=== PATIENT | male | born 1965 | race Caucasian/White ===

== ENCOUNTER 2021-10-09 11:35 | Outpatient (REF) | payer BC, SELFPAY ==
[2021-10-09 12:37] LABS: Influenza A PCR NEGATIVE (Negative); Influenza B PCR NEGATIVE (Negative); Resp Syncy Virus RNA Qual PCR NEGATIVE (Negative); SARS COV2 PCR INHOUSE POSITIVE (Negative)
== END 2021-10-09 11:36 | disposition home or self-care (01) ==
LOC: HO.LNP 11:35
PROVIDERS: Visit Provider Family Medicine
DX: Z20.822 Contact with and (suspected) exposure to COVID-19 (principal)
CPT/HCPCS: 0241U

== ENCOUNTER 2021-11-26 10:27 | Outpatient (REF) | payer BC, SELFPAY ==
[2021-11-26 13:58] LABS: MANUAL DIFF FLAG NO
[2021-11-26 14:08] LABS: Basophils Percent Auto 0.6 % (0-2); Eosinophils Absolute Auto 0.2 X10*3/uL (0.0-0.4); Eosinophils Percent Auto 3.3 % (0-4); Hematocrit 37.3 % (42.0-52.0); Hemoglobin 11.5 g/dl (14.0-18.0); Imm Gran Abs Auto 0.02 X10*3/uL (0.00-0.03); Imm Gran Pct Auto 0.4 % (0.0-0.4); Lymphocytes Absolute Auto 1.9 X10*3/uL (1.2-4.9); Mean Corpuscular HGB Conc 30.8 g/dl (31.0-36.0); Mean Corpuscular Hemoglobin 19.1 pg (27.0-33.0); Mean Platelet Volume 10.5 fL (9.4-12.4); Monocytes Absolute Auto 0.5 X10*3/uL (0.1-1.2); Monocytes Percent Auto 9.9 % (2-11); Neutrophils Absolute Auto 2.3 x10*3/uL (2.0-8.3); Neutrophils Percent Auto 46.8 % (45-73); Platelet Count 204 X10*3/uL (160-400); Red Blood Count 6.01 X10*6/uL (4.60-5.80); Red Cell Distribution Width 18.9 % (11.0-16.0); White Blood Count 4.8 X10*3/uL (4.8-10.8)
[2021-11-26 14:10] LABS: Mean Corpuscular Volume 62.1 fL (80.0-98.0)
[2021-11-26 14:43] LABS: Alanine Aminotransferase 21 U/L (0-40); Albumin Level 4.7 g/dL (3.5-5.0); Alkaline Phosphatase 52 U/L (39-117); Anion Gap 15 (12-20); Aspartate Amino Transferase 20 U/L (5-37); Bilirubin Total 0.9 mg/dL (0.0-1.0); Blood Urea Nitrogen 16 mg/dL (9-16); Calcium 9.4 mg/dL (8.4-10.2); Carbon Dioxide 25 mmol/L (22-29); Chloride 103 mmol/L (96-108); Cholesterol 221 mg/dL; Estimated Glomerular Filt Rate > 60; Glucose Fasting 113 mg/dL (60-99); HDL Cholesterol 73 mg/dL; LDL Cholesterol Calculated 133 mg/dl; Potassium 4.2 mmol/L (3.3-5.1); Sodium 139 mmol/L (135-145); Total Protein 7.1 g/dL (6.5-8.0); Triglycerides 78 mg/dL
[2021-11-26 14:50] LABS: Prostate Specific Antigen Scr 0.52 ng/mL (<0.05-4.0); TSH reflex Free T4 1.33 uIU/mL (0.32-4.0)
== END 2021-11-26 10:28 | disposition home or self-care (01) ==
LOC: HO.WFDLDS 10:27
PROVIDERS: Visit Provider Family Medicine
DX: Z00.00 Encounter for general adult medical examination without abnormal findings (principal); Z12.5 Encounter for screening for malignant neoplasm of prostate
CPT/HCPCS: 36415; 80053; 80061; 84153; 84443; 85025

== ENCOUNTER 2022-08-11 08:36 | Outpatient (REF) | payer BC, SELFPAY ==
[2022-08-11 11:08] LABS: MANUAL DIFF FLAG NO
[2022-08-11 11:18] LABS: Basophils Percent Auto 0.8 % (0-2); Eosinophils Absolute Auto 0.1 X10*3/uL (0.0-0.4); Eosinophils Percent Auto 1.5 % (0-4); Hematocrit 36.1 % (42.0-52.0); Imm Gran Abs Auto 0.03 X10*3/uL (0.00-0.03); Imm Gran Pct Auto 0.6 % (0.0-0.4); Immature Retic Fraction 22.5 % (2.3-13.4); Lymphocytes Absolute Auto 1.6 X10*3/uL (1.2-4.9); Lymphocytes Percent Auto 30.1 % (20-40); Mean Corpuscular HGB Conc 30.5 g/dl (31.0-36.0); Mean Corpuscular Hemoglobin 19.4 pg (27.0-33.0); Mean Platelet Volume 10.2 fL (9.4-12.4); Monocytes Absolute Auto 0.4 X10*3/uL (0.1-1.2); Monocytes Percent Auto 8.3 % (2-11); Neutrophils Absolute Auto 3.1 x10*3/uL (2.0-8.3); Neutrophils Percent Auto 58.7 % (45-73); Platelet Count 171 X10*3/uL (160-400); Red Blood Count 5.67 X10*6/uL (4.60-5.80); Red Cell Distribution Width 18.2 % (11.0-16.0); Retic HGB Equivalent 21.5 pg (30.0-35.0); Reticulocyte Percent 1.4 % (0.5-1.8); White Blood Count 5.3 X10*3/uL (4.8-10.8)
[2022-08-11 11:20] LABS: Mean Corpuscular Volume 63.7 fL (80.0-98.0)
[2022-08-11 12:07] LABS: Iron 98 mcg/dL (45-160); Percent Iron Saturation 29 % (15-50); Total Iron Binding Capacity 337 mcg/dL (228-428); Unsaturated Iron Binding 239 ug/dL
[2022-08-11 12:12] LABS: Ferritin 210 ng/mL (20-250)
[2022-08-11 12:21] LABS: Folate 16.8 ng/mL (> or = 4.0); Vitamin B12 270 pg/mL (200-900)
== END 2022-08-11 08:37 | disposition home or self-care (01) ==
LOC: HO.WFDLDS 08:36
PROVIDERS: Visit Provider Family Medicine
DX: D50.9 Iron deficiency anemia, unspecified (principal); E53.8 Deficiency of other specified B group vitamins
CPT/HCPCS: 36415; 82607; 82728; 82746; 83540; 85025; 85045

== ENCOUNTER 2022-09-04 14:24 | Outpatient (AMB) | payer BC, SELFPAY ==
--- NOTE | 2022-09-04 14:37 | MHC.PC.OV ---
Vital Signs 09/04/22 14:39 Height 5 ft 5 in Weight 230 lb BMI 38.3 BP 120/74 Blood Pressure Location Lt brachial Position Sitting Pulse 91 Pulse Source Pulse Oximeter Pulse Oximetry (%) 98 Oxygen Delivery Method Room Air Intake Visit Reasons: f/u elevated fasting blood sugars Intake Note: Patient is here to follow up on elevated fasting blood sugars. Allergies Seasonal Allergies Allergy (Mild, Verified 09/04/22 14:42) congestion Tobacco use date assessed: 09/04/22 Dental Screening Dental Screen Date: 09/04/22 Did you have a dental visit in the last 12 months?: Yes Did you have a dental problem in the last 6 months where you did not have access to dental care?: No Was dental information given to patient?: No HPI f/u elevated fasting blood sugars HPI Details 57 y/o male presents to f/u elevated fasting blood sugars. Last A1c 06/11/22 5.6%. A1c today 09/04/22 5.5%. Labs were drawn 08/11/22. Ongoing microcytic anemia. Pt reports he has had thalassemia. He denies any shortness of breath or fast heart rate. 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 Current occupational exposures/hazards: No Cognitive needs: No Hearing needs: No Vision needs: No Questionnaire SHANNON-7 AMB Questionnaire SHANNON-7 Date SHANNON - 7 assessed: 11/15/21 Source: Developed by Drs. Bharath Sky, Ela Mann, Marco Mann and colleagues, with an educational zaid from [employer]. Review of Systems Const Denies chills, Denies fatigue, Denies fever(s), Denies headache(s) and Denies weakness ENT Denies dizziness and Denies headache(s) Card Denies chest pain, Denies lightheadedness, Denies dyspnea and Denies other (Palpitations) Resp Denies cough, Denies dyspnea, Denies wheezing and Denies other ( shortness of breath) Musc Denies numbness and Denies tingling Neuro Denies dizziness, Denies headache(s), Denies numbness, Denies tingling, Denies paresthesias and Denies weakness Psych Denies anxiety and Denies depression Endo Denies fatigue Aller/Immun Denies wheezing Physical exam (Primary Care) Vital Signs: Last Vital Signs Pulse 91 09/04/22 14:39 BP 120/74 09/04/22 14:39 Pulse Ox 98 09/04/22 14:39 Oxygen Delivery Method Room Air 09/04/22 14:39 BMI result Body Mass Index 38.3 Tobacco/Smoking Status: Tobacco use Status Tobacco use date assessed 09/04/22 09/04/22 14:50 Tobacco use type Cigar 09/04/22 14:47 e-Cigarette/Vaping Use Never Used 09/04/22 14:47 Const General: no acute distress and well developed Nutritional Appearance: well nourished and obese Orientation/consciousness: patient oriented x3 HENMT Head: Yes normocephalic and Yes atraumatic Eyes General: appearance normal, both eyes and all related structures Pupils: Equal, round and reactive pupils present EOM: EOMs intact bilaterally Resp Effort & Inspection: normal respiratory effort Auscultation: clear to auscultation bilaterally Cardio Rate: regular rate Rhythm: regular rhythm Heart sounds: S1 normal heart sound present, S2 normal heart sound present, no gallops, no murmurs and no rubs Neuro General: patient oriented x3 and gait normal Cranial nerves: Yes Equal, round and reactive pupils present Psych Affect: normal affect Results AMB Hemoglobin A1c AMB Hemoglobin A1c 5.5 % Last Edit by Indira Christiansen CMA on 09/04/22 15:01 Results Reviewed Results Reviewed: Laboratory Last Values Hgb A1c (Clinic) 5.5 % (4.0-6.0) 09/04/22 14:57 Assessment and Plan Assessment & Plan (1) Elevated fasting glucose: Code(s): R73.01 - Impaired fasting glucose Plan: A1c improved from 5.6% to 5.5% Though still in top normal range Encouraged lifestyle changes Will follow-up (2) Microcytic anemia: Code(s): D50.9 - Iron deficiency anemia, unspecified Plan: Persistent microcytic anemia with normal iron Patient recalls that he has a diagnosis thalassemia (3) History of thalassemia: Code(s): Z86.2 - Personal history of diseases of the blood and blood-forming organs and certain disorders involving the immune mechanism Plan: Will follow Orders: Orders AMB Hemoglobin A1c Today Z13.9 - Encounter for screening, unspecified Coding Level of Care Code Est Pt Level 3 (44400) Diagnoses Elevated fasting glucose R73.01 Microcytic anemia D50.9 History of thalassemia Z86.2
[2022-09-04 14:39] VITALS: BP 120/74; PULSE 91; O2SAT 98; BMI 38.3
== END 2022-09-04 15:29 | disposition home or self-care (01) ==
PROVIDERS: Visit Provider Family Medicine
DX: R73.01 Impaired fasting glucose (principal); D50.9 Iron deficiency anemia, unspecified; Z86.2 Personal history of diseases of the blood and blood-forming organs and certain disorders involving the immune mechanism; Z13.9 Encounter for screening, unspecified
CPT/HCPCS: 83036; 99213

== ENCOUNTER 2022-12-31 08:26 | Outpatient (AMB) | payer BC, SELFPAY ==
[2022-12-31 08:39] VITALS: BP 122/78; PULSE 82; O2SAT 96; BMI 39.3
--- NOTE | 2022-12-31 08:39 | A.OFFPC_ITS ---
Vital Signs 12/31/22 08:39 Height 5 ft 5 in Weight 236 lb BMI 39.3 BP 122/78 Blood Pressure Location Lt brachial Position Sitting Pulse 82 Pulse Source Pulse Oximeter Pulse Oximetry (%) 96 Oxygen Delivery Method Room Air Intake Visit Reasons: f/u hypertension and chronic conditions Intake Note: Patient is here with follow up on hypertension and chronic condtions. Allergies Seasonal Allergies Allergy (Mild, Verified 12/31/22 08:40) congestion Tobacco use date assessed: 12/31/22 HPI f/u hypertension and chronic conditions HPI Details 57 y/o male presents to f/u hypertension and chronic conditions. Blood pressure today is 122/78. He is on losartan 50mg daily. [facility] Surgical History H/O right inguinal hernia repair Social History Housing: House Tobacco use type: Cigar e-Cigarette/Vaping Use: Never Used Second Hand Smoke Exposure: No Advance Directives Date on File: 09/04/22 Current occupational status: employed Current occupation: [employer]. Current occupational exposures/hazards: No Cognitive needs: No Hearing needs: No Vision needs: No Questionnaire PHQ-9 Over the last 2 weeks, how often have you been bothered by any of the following problems? 1. Little interest or pleasure in doing things: not at all 2. Feeling down, depressed, or hopeless: not at all 3. Trouble falling or staying asleep, or sleeping too much: not at all 4. Feeling tired or having little energy: not at all 5. Poor appetite or overeating: not at all 6. Feeling bad about yourself - or that you are a failure or have let yourself or your family down: not at all 7. Trouble concentrating on things, such as reading the newspaper or watching television: not at all 8. Moving or speaking so slowly that other people could have noticed. Or the opposite - being so fidgety or restless that you have been moving around a lot more than usual: not at all 9. Thoughts that you would be better off or of hurting yourself in some way: not at all Total score: 0 Source: Developed by Drs. Bharath Sky, ElaMarco Alfaro and colleagues, with an educational zaid from [employer] SHANNON-7 AMB Questionnaire SHANNON-7 Date SHANNON - 7 assessed: 12/31/22 Feeling nervous, anxious, or on edge: 1 = Several days Not being able to stop or control worryin = Not at all Worrying too much about different things: 1 = Several days Trouble relaxin = Not at all Being so restless that it is hard to sit still: 0 = Not at all Becoming easily annoyed or irritable: 0 = Not at all Feeling afraid as if something awful might happen: 0 = Not at all Total SHANNON-7 score (0-4 normal; 5-9 mild; 10-14 moderate; 15-21 severe): 2 Source: Developed by Drs. Bharath Sky, Marco Meléndez and colleagues, with an educational zaid from [employer] Review of Systems Const Denies chills, Denies fatigue, Denies fever(s), Denies headache(s) and Denies weakness ENT Denies dizziness and Denies headache(s) Card Denies chest pain, Denies lightheadedness, Denies dyspnea and Denies other (Palpitations) Resp Denies cough, Denies dyspnea, Denies wheezing and Denies other ( shortness of breath) Musc Denies numbness and Denies tingling Neuro Denies dizziness, Denies headache(s), Denies numbness, Denies tingling, Denies paresthesias and Denies weakness Psych Denies anxiety and Denies depression Endo Denies fatigue Aller/Immun Denies wheezing Physical exam (Primary Care) Vital Signs: Last Vital Signs Pulse 82 12/31/22 08:39 BP 122/78 12/31/22 08:39 Pulse Ox 96 12/31/22 08:39 Oxygen Delivery Method Room Air 12/31/22 08:39 BMI result Body Mass Index 39.3 Tobacco/Smoking Status: Tobacco use Status Tobacco use date assessed 12/31/22 12/31/22 08:43 Tobacco use type Cigar 12/31/22 08:43 e-Cigarette/Vaping Use Never Used 12/31/22 08:43 PHQ-9: PHQ-9 Score PHQ-9: Total score 0 12/31/22 09:00 Const General: no acute distress and well developed Nutritional Appearance: well nourished Orientation/consciousness: patient oriented x3 HENMT Head: Yes normocephalic and Yes atraumatic Eyes General: appearance normal, both eyes and all related structures Pupils: Equal, round and reactive pupils present EOM: EOMs intact bilaterally Resp Effort & Inspection: normal respiratory effort Auscultation: clear to auscultation bilaterally Cardio Rate: regular rate Rhythm: regular rhythm Heart sounds: S1 normal heart sound present, S2 normal heart sound present, no gallops, no murmurs and no rubs Neuro General: patient oriented x3 and gait normal Cranial nerves: Yes Equal, round and reactive pupils present Psych Affect: normal affect Assessment and Plan Assessment & Plan (1) Hypertension: Code(s): I10 - Essential (primary) hypertension Plan: Blood?pressure?is?controlled.??Goal?is?less?than?140/90 Continue?current?medication Orders: Orders Complete Blood Count Auto Diff Today Z00.00 - Encounter for general adult medical examination without abnormal findings, Z86.2 - Personal history of diseases of the blood and blood-forming organs and certain disorders involving the immune mechanism Basic Metabolic Panel Fasting Today R73.01 - Impaired fasting glucose Hemoglobin A1c Today R73.01 - Impaired fasting glucose IRON PROFILE Today D50.9 - Iron deficiency anemia, unspecified Coding Level of Care Code Est Pt Level 3 (36681) Diagnoses Hypertension I10
== END 2022-12-31 09:08 | disposition home or self-care (01) ==
PROVIDERS: PCP Family Medicine; Visit Provider Family Medicine
DX: I10 Essential (primary) hypertension (principal)
CPT/HCPCS: 99213

== ENCOUNTER 2023-03-25 08:33 | Outpatient (REF) | payer BC, SELFPAY ==
[2023-03-25 11:33] LABS: MANUAL DIFF FLAG NO
[2023-03-25 11:45] LABS: Basophils Absolute Auto 0.1 X10*3/uL (0.0-0.2); Basophils Percent Auto 0.9 % (0-2); Eosinophils Absolute Auto 0.2 X10*3/uL (0.0-0.4); Eosinophils Percent Auto 4.3 % (0-4); Hematocrit 37.4 % (42.0-52.0); Hemoglobin 11.4 g/dl (14.0-18.0); Imm Gran Abs Auto 0.03 X10*3/uL (0.00-0.03); Imm Gran Pct Auto 0.6 % (0.0-0.4); Lymphocytes Absolute Auto 1.8 X10*3/uL (1.2-4.9); Lymphocytes Percent Auto 33.1 % (20-40); Mean Corpuscular HGB Conc 30.5 g/dl (31.0-36.0); Mean Corpuscular Hemoglobin 19.2 pg (27.0-33.0); Mean Platelet Volume 10.7 fL (9.4-12.4); Monocytes Absolute Auto 0.5 X10*3/uL (0.1-1.2); Monocytes Percent Auto 9.2 % (2-11); Neutrophils Absolute Auto 2.8 x10*3/uL (2.0-8.3); Neutrophils Percent Auto 51.9 % (45-73); Platelet Count 215 X10*3/uL (160-400); Red Blood Count 5.95 X10*6/uL (4.60-5.80); Red Cell Distribution Width 17.9 % (11.0-16.0); White Blood Count 5.3 X10*3/uL (4.8-10.8)
[2023-03-25 11:47] LABS: Mean Corpuscular Volume 62.9 fL (80.0-98.0)
[2023-03-25 12:03] LABS: Estimated Average Glucose 117 mg/dL; Hemoglobin A1c % 5.7 % (<6.0)
[2023-03-25 12:21] LABS: Anion Gap 12 (12-20); Blood Urea Nitrogen 17 mg/dL (9-16); Calcium 9.5 mg/dL (8.4-10.2); Carbon Dioxide 23 mmol/L (22-29); Chloride 108 mmol/L (96-108); Estimated Glomerular Filt Rate > 60; Glucose Fasting 106 mg/dL (60-99); Iron 109 mcg/dL (45-160); Percent Iron Saturation 33 % (15-50); Potassium 4.5 mmol/L (3.3-5.1); Sodium 138 mmol/L (135-145); Total Iron Binding Capacity 333 mcg/dL (228-428); Unsaturated Iron Binding 224 ug/dL
== END 2023-03-25 08:34 | disposition home or self-care (01) ==
LOC: HO.WFDLDS 08:33
PROVIDERS: Visit Provider Family Medicine
DX: Z00.00 Encounter for general adult medical examination without abnormal findings (principal); R73.01 Impaired fasting glucose; D50.9 Iron deficiency anemia, unspecified; Z86.2 Personal history of diseases of the blood and blood-forming organs and certain disorders involving the immune mechanism
CPT/HCPCS: 36415; 80048; 83036; 83540; 85025

== ENCOUNTER 2023-04-01 08:25 | Outpatient (AMB) | payer BC, SELFPAY ==
--- NOTE | 2023-04-01 08:35 | A.OFFPC_ITS ---
Vital Signs 04/01/23 08:36 Height 5 ft 5 in Weight 229 lb 9 oz BMI 38.2 BP 126/74 Blood Pressure Location Lt brachial Position Sitting Pulse 79 Pulse Source Pulse Oximeter Pulse Oximetry (%) 97 Oxygen Delivery Method Room Air Intake Visit Reasons: f/u hypertension Intake Note: Patient is here to follow up on hypertension. Allergies Seasonal Allergies Allergy (Mild, Verified 04/01/23 08:38) congestion Tobacco use date assessed: 04/01/23 Dental Screening Dental Screen Date: 04/01/23 Did you have a dental visit in the last 12 months?: Yes Did you have a dental problem in the last 6 months where you did not have access to dental care?: No Was dental information given to patient?: Patient has dentist HPI f/u hypertension HPI Details 57 y/o male presents to f/u hypertension , elevated fasting glucose and mild anemia. Blood pressure today 126/74. He is on losartan 50mg daily. Labs were drawn 03/25/23. Reviewed labs with pt. Improving mild anemia. Hx of thalessemia. A1c 5.7%. 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 Current occupational exposures/hazards: No Cognitive needs: No Hearing needs: No Vision needs: No Questionnaire PHQ-9 Over the last 2 weeks, how often have you been bothered by any of the following problems? 1. Little interest or pleasure in doing things: not at all 2. Feeling down, depressed, or hopeless: not at all 3. Trouble falling or staying asleep, or sleeping too much: not at all 4. Feeling tired or having little energy: not at all 5. Poor appetite or overeating: not at all 6. Feeling bad about yourself - or that you are a failure or have let yourself or your family down: not at all 7. Trouble concentrating on things, such as reading the newspaper or watching television: not at all 8. Moving or speaking so slowly that other people could have noticed. Or the opposite - being so fidgety or restless that you have been moving around a lot more than usual: not at all 9. Thoughts that you would be better off or of hurting yourself in some way: not at all Total score: 0 Depression Screening Interpretation: Negative Depression Screening Done: Yes Source: Developed by Drs. Bharath Sky, Ela Mann, Marco Mann and colleagues, with an educational zaid from [employer]. Thrive Questionnaire Date Thrive assessed: 04/01/23 I am a: Patient What is your living situation today?: I have a steady place to live Within the past 12 months, did the food you bought not last and you didn't have the money to get more?: Never true Within the past 12 months, did you worry whether your food would run out before you got money to buy more?: Never true Do you have trouble paying for medicines?: No Do you have trouble getting transportation to medical appointments?: No Do you have trouble paying your heating and electricity bill?: No Do you have trouble taking care of your child, family member or friend?: No Do you have trouble with day-to-day activities such as bathing, preparing meals, shopping, managing finances, etc.?: No Are you currently unemployed and looking for a job?: No Are you interested in more education?: No THRIVE Score: 0 AUDIT C Alcohol Use Questionnaire (AUDIT-C) 1. How often do you have a drink containing alcohol?: Monthly or less 2. How many drinks containing alcohol do you have on a typical day when you are drinking?: 1 or 2 3. How often do you have six or more drinks on one occasion?: Never Total Score: 1 SHANNON-7 AMB Questionnaire SHANNON-7 Date SHANNON - 7 assessed: 04/01/23 Feeling nervous, anxious, or on edge: 0 = Not at all Not being able to stop or control worryin = Not at all Worrying too much about different things: 1 = Several days Trouble relaxin = Not at all Being so restless that it is hard to sit still: 0 = Not at all Becoming easily annoyed or irritable: 0 = Not at all Feeling afraid as if something awful might happen: 0 = Not at all Total SHANNON-7 score (0-4 normal; 5-9 mild; 10-14 moderate; 15-21 severe): 1 Source: Developed by Drs. Bharath Sky, Ela Mann, Marco Mann and colleagues, with an educational zaid from [employer]. Physical exam (Primary Care) Vital Signs: Last Vital Signs Pulse 79 04/01/23 08:36 BP 126/74 04/01/23 08:36 Pulse Ox 97 04/01/23 08:36 Oxygen Delivery Method Room Air 04/01/23 08:36 BMI result Body Mass Index 3.8 Tobacco/Smoking Status: Tobacco use Status Tobacco use date assessed 04/01/23 04/01/23 08:41 Tobacco use type Cigar 04/01/23 08:41 e-Cigarette/Vaping Use Never Used 04/01/23 08:41 PHQ-9: PHQ-9 Score PHQ-9: Total score 0 04/01/23 09:06 Depression Screening Interpretation: Negative Thrive Assessment: Date of Thrive Assessment Date Thrive assessed 04/01/23 04/01/23 08:49 Assessment and Plan Assessment & Plan (1) Hypertension: Code(s): I10 - Essential (primary) hypertension Plan: Blood?pressure?is?well?controlled.??Goal?is?less?than?140/90 Continue?current?medication (2) History of thalassemia: Code(s): Z86.2 - Personal history of diseases of the blood and blood-forming organs and certain disorders involving the immune mechanism Plan: History?of?thalassemia?and?mild?microcytic?anemia. This?appears?stable?and?is?slightly?improved?from?prior?check. (3) Mild anemia: Code(s): D64.9 - Anemia, unspecified Plan: As?above,?mild?microcytic?anemia?due?to?thalassemia.??This?is?stable?and?slightl y?improved. (4) Pre-diabetes: Code(s): R73.03 - Prediabetes Plan: A1c?has?climbed?to?5.7%,?pre?diabetes?range. Encouraged?diet?low?in?sugars?and?starches. Will?continue?to?monitor. (5) Olecranon bursitis: Code(s): M70.20 - Olecranon bursitis, unspecified elbow Plan: Resolving Advised?he?use?cold?packs?and?avoid?leaning?on?or?pressure?on?elbow. Call?or?return?to?office?if?worsens?or?not?resolving. Orders: Orders Complete Blood Count Auto Diff Today Z00.00 - Encounter for general adult medical examination without abnormal findings Lipid Panel Today Z00.00 - Encounter for general adult medical examination without abnormal findings Microalbumin, Random (w Creat) Today I10 - Essential (primary) hypertension Prostate Specific Antigen Scr Today Z12.5 - Encounter for screening for malignant neoplasm of prostate TSH reflex Free T4 Today Z00.00 - Encounter for general adult medical examination without abnormal findings UA and rflx microscopic Today Z00.00 - Encounter for general adult medical examination without abnormal findings IRON PROFILE Today D50.9 - Iron deficiency anemia, unspecified, Z86.2 - Personal history of diseases of the blood and blood-forming organs and certain disorders involving the immune mechanism Comprehensive [place]. Panel Fast Today Z00.00 - Encounter for general adult medical examination without abnormal findings Coding Level of Care Code Est Pt Level 4 (72726) Diagnoses Hypertension I10 History of thalassemia Z86.2 Mild anemia D64.9 Pre-diabetes R73.03 Olecranon bursitis M70.20
[2023-04-01 08:36] VITALS: BP 126/74; PULSE 79; O2SAT 97; BMI 38.2
== END 2023-04-01 09:22 | disposition home or self-care (01) ==
PROVIDERS: PCP Family Medicine; Visit Provider Family Medicine
DX: I10 Essential (primary) hypertension (principal); Z86.2 Personal history of diseases of the blood and blood-forming organs and certain disorders involving the immune mechanism; D64.9 Anemia, unspecified; R73.03 Prediabetes; M70.20 Olecranon bursitis, unspecified elbow
CPT/HCPCS: 99214

== ENCOUNTER 2023-07-13 08:10 | Outpatient (AMB) | payer BC, SELFPAY ==
--- NOTE | 2023-07-13 08:32 | MHC.OFFWIV ---
Intake Vital Signs 07/13/23 08:33 Height 5 ft 5 in Weight 229 lb 6 oz BMI 38.2 BP 124/82 Blood Pressure Location Lt radial Position Sitting Respiration 16 Pulse 80 Pulse Source Palpation Temp 98.1 F Temp Source Oral Pulse Oximetry (%) 97 Oxygen Delivery Method Room Air Intake Visit Reasons: swollen left hand Intake Note: Swollen hand. Discolored, white, last night. Gradually returned to normal. Patient Tobacco Use Status: Current everyday Tobacco user Wrapper And Preserver Required: No Allergies Seasonal Allergies Allergy (Mild, Verified 07/13/23 08:53) congestion Medication List - Last Reconciled 07/13/23 by Eleanor Alvarado, [facility]- allopurinol 100 mg PO DAILY PRN cetirizine (Zyrtec) 10 mg PO DAILY PRN indomethacin 50 mg PO .prn PRN losartan 50 mg PO DAILY 90 days multivitamin 1 tab PO DAILY Do you need a note to return to daycare/school/sports/work: No HPI HPI Comments History of Present Illness Details Here today w WITH COMPLAINTS OF ONGOING RIGHT HAND PAIN THAT HAS BEEN PRESENT SINCE 06/08/2023. REPORTS THE INJURY OCCURRED AFTER HITTING THE RIGHT PALMAR SURFACE ON A WRENCH. right hand dominant top Of hand started to swell 1-2 hours later had stinging in hand did not turn black and blue, skin turned red on top, had a lot of swelling was not able to use by 06/21/23 hand cont to be the same. Icing and elevating & using Motrin since date of injury Went to ED on 06/21/23 --> note reviewed along w/ imaging. Did not have a splint that would fit right hand so applied an monica wrap Bought OTC brace and using a flexible brace while at work. Here today as last night at dinner hand turned white from the finger tips to about 1 inch past the wrist, skin was warm to touch. this lasted hours. The skin then turned red. feels decreased strength, edema is worse at end of day . 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 Current occupational exposures/hazards: No Cognitive needs: No Hearing needs: No Vision needs: No Review of Systems Const All systems reviewed & are unremarkable except as noted in HPI and below Physical Exam Vital Signs: Last Vital Signs Temp 98.1 F 07/13/23 08:33 Pulse 80 07/13/23 08:33 Resp 16 07/13/23 08:33 BP 124/82 07/13/23 08:33 Pulse Ox 97 07/13/23 08:33 Oxygen Delivery Method Room Air 07/13/23 08:33 BMI result Body Mass Index 38.2 Extrem Other: RIGHT HAND CAP REFILL WNL, SKIN WARM, PINK, NO CYANOSIS, BRUISING OR EDEMA. LIMITED PASSIVE ROM ALL DIRECTIONS, HANG GRASP MILDLY WEAK. NO OBVIOUS DEFORMITY. Hand/finger images: 1. PAIN WITH PALPATION AND ROTATION 2. PAIN WITH PALPATION AND FLEXION AND EXTENSION Assessment & Plan Assessment & Plan (1) Injury of right hand: Code(s): S69.91XA - Unspecified injury of right wrist, hand and finger(s), initial encounter Qualifiers: Encounter type: subsequent encounter Qualified Code(s): S69.91XD - Unspecified injury of right wrist, hand and finger(s), subsequent encounter Plan: . Plan PATIENT AND HIS WISH TO BE SEEN TODAY. I HAVE ADVISED THEM TO SEEK CARE AT [facility]. IN REGARDS TO THE INCIDENTAL FINDING ON THE X-RAY OF HIS RIGHT HAND WHICH SHOWED SMALL VESSEL ARTERIOSCLEROSIS I ENCOURAGED HIM TO FOLLOW UP WITH HIS PRIMARY CARE PROVIDER. HE REPORTS HE HAS A APPOINTMENT WITH HIM NEXT WEEK. IN REGARDS TO THE DISCOLORATION OF HIS HAND THIS CERTAINLY COULD BE SOMETHING LIKE RAYNAUD'S ESPECIALLY GIVEN THE TOBACCO USE HISTORY. HOWEVER GIVEN THE COMPLAINTS OF WEAKNESS WELL PAIN ON PALPATION I THINK IT IS MORE IMPORTANT FOR HIM TO FOLLOW UP WITH ORTHOPEDICS AT THIS TIME. TOTAL TIME SPENT CARING FOR THE PATIENT TODAY WAS 30 MINUTES. THIS INCLUDES TIME SPENT BEFORE THE VISIT REVIEWING THE CHART, TIME SPENT DURING THE VISIT, AND TIME SPENT AFTER THE VISIT ON DOCUMENTATION THIS NOTE IS CONSTRUCTED USING VOICE RECOGNITION SOFTWARE. WHILE EVERY EFFORT HAS BEEN MADE TO ENSURE ACCURACY IN VICE PRESIDENT COMPLIANCE, STILL ERRORS MAY HAVE BEEN INCLUDED SOMETIMES, THESE ERRORS MAY AFFECT THE CONTENT OR MEANING OF THE GIVEN SENTENCE . Orders: Referrals Hand Surgery Referral S69.91XA - Unspecified injury of right wrist, hand and finger(s), initial encounter Coding Level of Care Code Est Pt Level 4 (57044) Diagnoses Injury of right hand, subsequent encounter S69.91XD Encounter type: subsequent encounter
[2023-07-13 08:33] VITALS: BP 124/82; PULSE 80; RESP 16; TEMP 36.7; O2SAT 97; BMI 38.2
== END 2023-07-13 09:05 | disposition home or self-care (01) ==
PROVIDERS: PCP Family Medicine; Visit Provider Nurse Practitioner Family
DX: S69.91XD Unspecified injury of right wrist, hand and finger(s), subsequent encounter (principal)
CPT/HCPCS: 99214

== ENCOUNTER 2023-07-23 08:23 | Outpatient (REF) | payer BC, SELFPAY ==
[2023-07-23 11:22] LABS: MANUAL DIFF FLAG NO
[2023-07-23 11:32] LABS: Basophils Percent Auto 0.6 % (0-2); Eosinophils Absolute Auto 0.1 X10*3/uL (0.0-0.4); Eosinophils Percent Auto 2.4 % (0-4); Hematocrit 35.7 % (42.0-52.0); Hemoglobin 10.8 g/dl (14.0-18.0); Lymphocytes Absolute Auto 1.5 X10*3/uL (1.2-4.9); Lymphocytes Percent Auto 32.3 % (20-40); Mean Corpuscular HGB Conc 30.3 g/dl (31.0-36.0); Mean Corpuscular Hemoglobin 19.1 pg (27.0-33.0); Mean Corpuscular Volume 63.1 fL (80.0-98.0); Mean Platelet Volume 10.9 fL (9.4-12.4); Monocytes Absolute Auto 0.5 X10*3/uL (0.1-1.2); Monocytes Percent Auto 11.2 % (2-11); Neutrophils Absolute Auto 2.5 x10*3/uL (2.0-8.3); Neutrophils Percent Auto 53.5 % (45-73); Platelet Count 214 X10*3/uL (160-400); Red Blood Count 5.66 X10*6/uL (4.60-5.80); Red Cell Distribution Width 17.9 % (11.0-16.0); White Blood Count 4.7 X10*3/uL (4.8-10.8)
[2023-07-23 11:43] LABS: Appearance Urine Clear; Color Urine Yellow; Glucose Urine UA Negative (Negative); Leukocyte Esterase Urine Negative (Negative); Nitrite Urine Negative (Negative); Specific Gravity - Urine 1.015 (1.005-1.025); Urine Blood Negative (Negative); Urine Ketones Negative (Negative); Urine Protein Negative (Neg-Trace)
[2023-07-23 12:18] LABS: Alanine Aminotransferase 17 U/L (0-40); Albumin Level 4.3 g/dL (3.5-5.0); Alkaline Phosphatase 61 U/L (39-117); Anion Gap 15 (12-20); Aspartate Amino Transferase 15 U/L (5-37); Bilirubin Total 0.4 mg/dL (0.0-1.0); Blood Urea Nitrogen 16 mg/dL (9-16); Calcium 9.8 mg/dL (8.4-10.2); Carbon Dioxide 22 mmol/L (22-29); Chloride 107 mmol/L (96-108); Cholesterol 180 mg/dL (<200); Estimated Glomerular Filt Rate > 60; Glucose Fasting 113 mg/dL (60-99); HDL Cholesterol 65 mg/dL (>40); Iron 33 mcg/dL (45-160); LDL Cholesterol Calculated 102 mg/dL (<100); Percent Iron Saturation 12 % (15-50); Potassium 4.3 mmol/L (3.3-5.1); Sodium 140 mmol/L (135-145); Total Iron Binding Capacity 274 mcg/dL (228-428); Total Protein 7.3 g/dL (6.5-8.0); Triglycerides 65 mg/dL (<150); Unsaturated Iron Binding 241 ug/dL
[2023-07-23 12:29] LABS: Prostate Specific Antigen Scr 0.55 ng/mL (<0.05-4.0)
[2023-07-23 12:37] LABS: TSH reflex Free T4 1.47 uIU/mL (0.32-4.0)
[2023-07-23 12:47] LABS: Creatinine Urine 114.23 mg/dL; Microalbumin Urine < 5.0 mg/L
== END 2023-07-23 08:24 | disposition home or self-care (01) ==
LOC: HO.WFDLDS 08:23
PROVIDERS: Visit Provider Family Medicine
DX: Z00.00 Encounter for general adult medical examination without abnormal findings (principal); I10 Essential (primary) hypertension; Z12.5 Encounter for screening for malignant neoplasm of prostate; D50.9 Iron deficiency anemia, unspecified; Z86.2 Personal history of diseases of the blood and blood-forming organs and certain disorders involving the immune mechanism
CPT/HCPCS: 36415; 80053; 80061; 81003; 82043; 82570; 83540; 84153; 84443; 85025

== ENCOUNTER 2023-07-30 08:28 | Outpatient (AMB) | payer BC, SELFPAY ==
[2023-07-30 08:37] VITALS: BP 126/74; PULSE 71; O2SAT 98; BMI 37.6
--- NOTE | 2023-07-30 08:37 | A.OFFPC_ITS ---
Vital Signs 07/30/23 08:37 Height 5 ft 5 in Weight 226 lb 4 oz BMI 37.6 BP 126/74 Blood Pressure Location Lt brachial Position Sitting Pulse 71 Pulse Source Pulse Oximeter Pulse Oximetry (%) 98 Oxygen Delivery Method Room Air Intake Visit Reasons: CPE Intake Note: Patient is here for his physical today. Patient is concerned about gout. Patient would like refill of allopurinol, indomethacin, and losartan. Allergies Seasonal Allergies Allergy (Mild, Verified 07/30/23 08:50) congestion Medication List - Last Reconciled 07/30/23 by Tra Gonzales MD allopurinol 100 mg PO DAILY PRN cetirizine (Zyrtec) 10 mg PO DAILY PRN indomethacin 50 mg PO .prn PRN losartan 50 mg PO DAILY 90 days methylprednisolone 4 mg PO DAILY multivitamin 1 tab PO DAILY Tobacco use date assessed: 07/30/23 Dental Screening Dental Screen Date: 07/30/23 Did you have a dental visit in the last 12 months?: Yes Did you have a dental problem in the last 6 months where you did not have access to dental care?: No Was dental information given to patient?: Patient has dentist HPI CPE HPI Details 57 y/o male presents for a CPE with f/u labs and health maintenance. Labs were drawn 07/23/23. Reviewed labs with pt. Ongoing mild anemia. Fasting glucose of 115 and last A1c in February 5.7%. A1c today 07/30/23 6.2%. Triglycerides 65. TC 180. LDL 102. HDL 65. Pt concerned about gout and pt states he had not been taking allopurinol. HPI Comments History of Present Illness Details Documentation assistance for rTa Gonzales MD, was provided by Rafiq Hale, Purchasing Intern on 07/30/2023 at 9:18 AM EST. [place], Dr. Gonzales, have read, observed, and verified documentation. 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 Current occupational exposures/hazards: No Cognitive needs: No Hearing needs: No Vision needs: No Questionnaire Thrive Questionnaire Date Thrive assessed: 04/01/23 SHANNON-7 AMB Questionnaire SHANNON-7 Date SHANNON - 7 assessed: 04/01/23 Source: Developed by Drs. Bharath Sky, Ela Mann, Marco Mann and colleagues, with an educational zaid from [employer]. Review of Systems Const Denies chills, Denies fatigue, Denies fever(s), Denies headache(s) and Denies weakness Eyes Denies change in vision ENT Denies dizziness, Denies headache(s), Denies hearing loss, Denies nasal congestion, Denies sinus pain, Denies sinus pressure and Denies sore throat Card Denies chest pain, Denies lightheadedness, Denies dyspnea and Denies other (palpitations) Resp Denies cough, Denies dyspnea and Denies wheezing GI Denies abdominal pain, Denies melena, Denies hematochezia, Denies change in bowel habits, Denies dyspepsia and Denies nausea Denies hematuria and Denies dysuria Musc Denies abnormal gait, Denies myalgias, Denies arthralgias, Denies numbness and Denies tingling Skin/Breast Denies rash, Denies unusual bruising and Denies wounds Neuro Denies abnormal gait, Denies dizziness, Denies headache(s), Denies memory loss, Denies numbness, Denies Sensory deficit (Neuro), Denies tingling and Denies weakness Psych Denies anxiety, Denies depression and Denies memory loss Endo Denies cold intolerance, Denies fatigue, Denies heat intolerance, Denies polydipsia and Denies polyuria Epifanio/Lymph Denies easy bleeding and Denies easy bruising Aller/Immun Denies wheezing Physical exam (Primary Care) Vital Signs: Last Vital Signs Pulse 71 07/30/23 08:37 BP 126/74 07/30/23 08:37 Pulse Ox 98 07/30/23 08:37 Oxygen Delivery Method Room Air 07/30/23 08:37 BMI result Body Mass Index 37.6 Tobacco/Smoking Status: Tobacco use Status Tobacco use date assessed 07/30/23 07/30/23 08:45 Patient Tobacco Use Status Current everyday Tobacco 07/30/23 08:37 Tobacco use type Cigar 07/30/23 08:37 e-Cigarette/Vaping Use Never Used 07/30/23 08:37 Thrive Assessment: Date of Thrive Assessment Date Thrive assessed 04/01/23 07/30/23 08:37 Const General: no acute distress, well developed, alert and awake Nutritional Appearance: well nourished Orientation/consciousness: patient oriented x3 HENMT Head: Yes normocephalic and Yes atraumatic Ears: hearing grossly normal bilaterally and TM's normal bilaterally General nose exam: Normal external nose present and Normal nares present Mouth: Normal oral and palatal mucosa present and moist mucous membranes Teeth and gingiva: dentition normal Throat: Yes posterior oropharynx normal Eyes General: appearance normal, both eyes and all related structures Pupils: Equal, round and reactive pupils present and Pupil accommodation reflex normal EOM: EOMs intact bilaterally Neck Neck: Yes normal visual inspection, Yes no lymphadenopathy and Yes trachea midline Thyroid: Thyroid normal Carotids: no bruits Lymphatic: no lymphadenopathy noted Chest Chest palpation & inspection: normal inspection of the chest Resp Effort & Inspection: normal respiratory effort Auscultation: clear to auscultation bilaterally Cardio Rate: regular rate Rhythm: regular rhythm Heart sounds: S1 normal heart sound present, S2 normal heart sound present, no gallops, no murmurs and no rubs Bruits: no abdominal aortic bruits and no carotid bruits GI Palpation (GI): No Abdominal aortic bruit present, Soft to palpation, nontender, No hepatosplenomegaly present and No Rebound tenderness present Auscultation: normal bowel sounds General: Yes no CVA tenderness Back/Spine/Pelvis Back: no CVA tenderness Cervical Spine: cervical ROM normal and No Cervical spine tenderness Thoracic/Lumbar Spine: thoraco-lumbar ROM normal, No pain with thoraco-lumbar ROM, No thoracic spinal tenderness and No lumbar spinal tenderness Skin Lesions: no lesions Rashes: no rashes Trauma: no lacerations or abrasions Wounds: no wounds Nails: normal Neuro General: patient oriented x3 Cranial nerves: Yes Equal, round and reactive pupils present Cognition (Neuro): normal cognition Gait exam (Neuro): Normal gait present Motor exam (neuro): 5/5 motor strength present throughout Sensory Exam: No Sensory deficit (Neuro) Deep tendon reflexes (DTR's): Right patellar reflex intensity grade: 2+ and Left patellar reflex intensity grade: 2+ Extrem General: Yes normal to inspection and No edema Psych Appearance: grossly normal Affect: normal affect Attitude: cooperative Thought process: Normal thought process present Results AMB Hemoglobin A1c AMB Hemoglobin A1c 6.2 % Last Edit by Indira Christiansen CMA on 07/30/23 09:22 Results Reviewed Results Reviewed: Laboratory Last Values Hgb A1c (Clinic) 6.2 % (4.0-6.0) H 07/30/23 09:21 Assessment and Plan Assessment & Plan (1) Adult general medical exam: Code(s): Z00.00 - Encounter for general adult medical examination without abnormal findings Plan: 57-year-old?male?presents?for?complete?physical?exam (2) Mild anemia: Code(s): D64.9 - Anemia, unspecified Plan: History?thalassemia?minor. Mild?decrease?in?H&H?and?patient?has?current?iron?deficiency Will?give?him?a?script?for?iron?supplement (3) Pre-diabetes: Code(s): R73.03 - Prediabetes Plan: A1c?increased?to?6.2%.??Still?in?pre?diabetes?range. Encouraged?improved?work?at?decreasing?sugars?and?starches?in?diet Encouraged?weight?loss (4) Gout: Code(s): M10.9 - Gout, unspecified Plan: History?of?gout?and Has?right?wrist?pain?swelling?and?mild?erythema This?improved?with?methylprednisone.??He?is?now?taking?allopurinol?again. Will?give?him?a?script?for?additional?steroid?and?continue?allopurinol Will?also?give?him?a?script?for?indomethacin (5) Hypertension: Code(s): I10 - Essential (primary) hypertension Plan: Blood?pressure?is?controlled.??Goal?is?less?than?140/90 Continue?current?medications (6) Screening for colon cancer: Code(s): Z12.11 - Encounter for screening for malignant neoplasm of colon Plan: Last?colonoscopy?in?[place]?and?patient?was?told?to?follow-up?in?5?years He?is?still?up-to-date?but?I?do?not?have?the?report-will?request (7) Screening for prostate cancer: Code(s): Z12.5 - Encounter for screening for malignant neoplasm of prostate Plan: PSA?was?within?normal?range. Continue?annual?screening Orders: Orders Uric Acid Today S69.91XD - Unspecified injury of right wrist, hand and finger(s), subsequent encounter CRP High Sensitivity Today S69.91XD - Unspecified injury of right wrist, hand and finger(s), subsequent encounter Rheumatoid Factor Today S69.91XD - Unspecified injury of right wrist, hand and finger(s), subsequent encounter Cyclic Citrullinated Peptide Today S69.91XD - Unspecified injury of right wrist, hand and finger(s), subsequent encounter AMB Hemoglobin A1c Today Z13.9 - Encounter for screening, unspecified Comprehensive Met. Panel Today S69.91XD - Unspecified injury of right wrist, hand and finger(s), subsequent encounter Erythrocyte Sedimentation Rate Today S69.91XD - Unspecified injury of right wrist, hand and finger(s), subsequent encounter MARTIN Reflex Titer and Pattern Today S69.91XD - Unspecified injury of right wrist, hand and finger(s), subsequent encounter Medications: New prednisone 40 mg (2 x 20 mg) PO DAILY 5 days 10 tabs 0RF ferrous sulfate 325 mg PO DAILY 30 days 30 tabs 2RF Changed From allopurinol 100 mg PO DAILY PRN To allopurinol 100 mg PO DAILY 90 days 90 tabs 2RF From indomethacin administer with food or milk 50 mg PO .prn PRN To indomethacin administer with food or milk 50 mg PO TID 30 days PRN 90 caps 0RF Pain & swelling Coding Level of Care Code Est Pt Level 3 (07842) Est Pt Prev Care 40-64y(34498) Diagnoses Adult general medical exam Z00.00 Mild anemia D64.9 Pre-diabetes R73.03 Gout M10.9 Hypertension I10 Screening for colon cancer Z12.11 Screening for prostate cancer Z12.5
== END 2023-07-30 14:11 | disposition home or self-care (01) ==
PROVIDERS: PCP Family Medicine; Visit Provider Family Medicine
DX: Z00.00 Encounter for general adult medical examination without abnormal findings (principal); R73.03 Prediabetes; D64.9 Anemia, unspecified; M10.9 Gout, unspecified; I10 Essential (primary) hypertension; Z12.11 Encounter for screening for malignant neoplasm of colon; Z12.5 Encounter for screening for malignant neoplasm of prostate
CPT/HCPCS: 83036; 99213; 99396

== ENCOUNTER 2023-07-30 10:17 | Outpatient (REF) | payer BC, SELFPAY ==
[2023-07-30 12:03] LABS: Rheumatoid Factor < 13.0 IU/mL (<15.0)
[2023-07-30 12:04] LABS: Alanine Aminotransferase 19 U/L (0-40); Albumin Level 4.1 g/dL (3.5-5.0); Alkaline Phosphatase 54 U/L (39-117); Anion Gap 10 (12-20); Aspartate Amino Transferase 17 U/L (5-37); Bilirubin Total 0.5 mg/dL (0.0-1.0); Blood Urea Nitrogen 14 mg/dL (9-16); Calcium 9.9 mg/dL (8.4-10.2); Carbon Dioxide 26 mmol/L (22-29); Chloride 108 mmol/L (96-108); Estimated Glomerular Filt Rate > 60; Glucose Random 109 mg/dL (60-115); Potassium 4.3 mmol/L (3.3-5.1); Sodium 140 mmol/L (135-145); Total Protein 6.8 g/dL (6.5-8.0); Uric Acid 6.6 mg/dL (3.4-7.0)
[2023-07-30 12:42] LABS: Erythrocyte Sedimentation Rate 10 MM/HR (0-15)
[2023-07-31 20:54] LABS: CRP High Sensitivity 10.7 mg/L
[2023-08-02 15:13] LABS: Anti Nuclear Antibody Screen NEGATIVE (NEGATIVE)
[2023-08-03 20:43] LABS: Cyclic Citrullinated Peptide <16 UNITS
== END 2023-07-30 10:18 | disposition home or self-care (01) ==
LOC: HO.WFDLDS 10:17
PROVIDERS: Visit Provider Family Medicine
DX: S69.91XD Unspecified injury of right wrist, hand and finger(s), subsequent encounter (principal)
CPT/HCPCS: 36415; 80053; 84550; 85652; 86038; 86141; 86200; 86431

== ENCOUNTER → 2023-09-16 12:52 | Outpatient (AMB) | payer BC, SELFPAY ==
--- NOTE | 2023-09-16 12:58 | A.OFFPC_ITS ---
Vital Signs 09/16/23 13:02 Height 5 ft 5 in Weight 225 lb 6 oz BMI 37.5 BP 116/74 Blood Pressure Location Rt brachial Position Sitting Respiration 16 Pulse 77 Pulse Source Pulse Oximeter Temp 97.7 F Temp Source Oral Pulse Oximetry (%) 95 Oxygen Delivery Method Room Air Intake Visit Reasons: SwellingLeftHand Intake Note: Swelling in left hand. Hit elbow against a pole two weeks ago, thats when the symptoms started. Special Ed Assistant Required: No Allergies Seasonal Allergies Allergy (Mild, Verified 09/16/23 12:59) congestion Medication List - Last Reconciled 09/16/23 by Shira Mendoza PA-C allopurinol 100 mg PO DAILY 90 days cetirizine (Zyrtec) 10 mg PO DAILY PRN 90 days ferrous sulfate 325 mg orally Every other day; indomethacin 50 mg PO TID PRN 30 days losartan 50 mg PO DAILY 90 days multivitamin 1 tab PO DAILY 90 days Tobacco use date assessed: 07/30/23 Dental Screening Dental Screen Date: 07/30/23 HPI SwellingLeftHand HPI Details Patient is a 58-year-old male who comes in today for an acute problem visit regarding his left hand. He states that it feels like his left 2nd finger has gout. About 2 weeks ago he injured his left elbow and hand by catching a ball with this hand. He does not feel like the injury caused him to break any bones but he did develop some significant swelling the following day. He states that there was no bruising. His elbow does have some point tenderness but has a history of bursitis over the olecranon process. He states that the hand is nontender. The wrist and arm are nontender. His hand feel tight from all the soft tissue swelling but his finger is tender and feels consistent with gout. He only recently restarted his allopurinol. He does drink beer but has tried to watch his purine diet. No fever, chills, numbness or tingling. No weakness. No known tick bites. He was recently seen and treated for gout of the right hand. 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 Current occupational exposures/hazards: No Cognitive needs: No Hearing needs: No Vision needs: No Questionnaire Thrive Questionnaire Date Thrive assessed: 04/01/23 SHANNON-7 AMB Questionnaire SHANNON-7 Date SHANNON - 7 assessed: 04/01/23 Source: Developed by Drs. Bharath Sky, Ela Mann, Marco Mann and colleagues, with an educational zaid from [employer]. Physical exam (Primary Care) Vital Signs: Last Vital Signs Temp 97.7 F 09/16/23 13:02 Pulse 77 09/16/23 13:02 Resp 16 09/16/23 13:02 BP 116/74 09/16/23 13:02 Pulse Ox 95 09/16/23 13:02 Oxygen Delivery Method Room Air 09/16/23 13:02 BMI result Body Mass Index 37.5 Tobacco/Smoking Status: Tobacco use Status Tobacco use date assessed 07/30/23 09/16/23 13:09 Patient Tobacco Use Status Current everyday Tobacco 09/16/23 13:09 Tobacco use type Cigar 09/16/23 13:09 e-Cigarette/Vaping Use Never Used 09/16/23 13:09 Thrive Assessment: Date of Thrive Assessment Date Thrive assessed 04/01/23 09/16/23 13:09 Const Orientation/consciousness: patient oriented x3 HENMT Ears: hearing grossly normal bilaterally Resp Auscultation: clear to auscultation bilaterally Cardio Rate: regular rate Rhythm: regular rhythm Heart sounds: S1 normal heart sound present and S2 normal heart sound present Skin General skin exam: no rashes or lesions noted Neuro General: patient oriented x3, gait normal and no focal motor deficits Extrem Other: There is significant soft tissue swelling noted over the dorsum of the left hand. The hand is nontender. The right finger is swollen and tender to palpation with minimal erythema. Increased warmth throughout the hand and finger. The left arm is nontender. The left elbow is tender to palpation over the olecranon process and otherwise nontender. Full range of motion. No discomfort with pronation or supination. Assessment and Plan Assessment & Plan (1) Gout: Code(s): M10.9 - Gout, unspecified Qualifiers: Gout site: hand Gout etiology: unspecified cause Chronicity: acute Laterality: left Qualified Code(s): M10.9 - Gout, unspecified Plan: It does appear consistent with gout. We will treat with a Medrol Dosepak as this is what normally works for him. I have ordered a Lyme test to rule this out. X-ray of the elbow and finger to rule out fracture. He will follow up if no improvement or if anything worsens or changes. Patient will contact us after he gets the x-ray done at [place]. Patient understands and agrees with the plan. (2) Finger pain, left: Code(s): M79.645 - Pain in left finger(s) Plan: As above (3) Left elbow pain: Code(s): M25.522 - Pain in left elbow Plan: As above Orders: Orders XR finger LT min 2V Today Shira Mendoza PA-C M25.522 - Pain in left elbow, M79.645 - Pain in left finger(s) Lyme IgG/IgM w/reflex to WB Today Shira Mendoza PA-C M10.9 - Gout, unspecified, M25.522 - Pain in left elbow, M79.645 - Pain in left finger(s) XR elbow LT min 3V Today Shira Mendoza PA-C M25.522 - Pain in left elbow, M79.645 - Pain in left finger(s) Medications: New methylprednisolone (Medrol ([place])) PO PER PKG DIR for 6 days 21 ea 0RF Shira Mendoza PA-C Changed From ferrous sulfate 325 mg PO DAILY 30 days 30 tabs 2RF To ferrous sulfate 325 mg orally Every other day; Tra Gonzales MD Coding Level of Care Code Est Pt Level 4 (02256) Complex EM visit Add On G2211 Diagnoses Acute gout of left hand, unspecified cause M10.9 Gout site: hand Gout etiology: unspecified cause Chronicity: acute Laterality: left Finger pain, left M79.645 Left elbow pain M25.522
[2023-09-16 13:02] VITALS: BP 116/74; PULSE 77; RESP 16; TEMP 36.5; O2SAT 95; BMI 37.5
== END ==
PROVIDERS: PCP Family Medicine; Visit Provider Physician Assistant
DX: M10.9 Gout, unspecified (principal); M79.645 Pain in left finger(s); M25.522 Pain in left elbow
CPT/HCPCS: 99214

== ENCOUNTER 2023-09-16 13:45 | Outpatient (REF) | payer BC, SELFPAY ==
[2023-09-17 17:38] LABS: Lyme Abs Screen <0.90 index
== END 2023-09-16 13:46 | disposition home or self-care (01) ==
LOC: HO.WFDLDS 13:45
PROVIDERS: Visit Provider Physician Assistant
DX: M79.645 Pain in left finger(s) (principal); M10.9 Gout, unspecified; M25.522 Pain in left elbow
CPT/HCPCS: 36415; 86617; 86618

== ENCOUNTER 2023-10-19 09:47 | Outpatient (AMB) | payer BC, SELFPAY ==
--- NOTE | 2023-10-19 10:11 | MHC.PC.OV ---
Vital Signs 10/19/23 10:12 Height 5 ft 5 in Weight 223 lb 4 oz BMI 37.1 BP 116/74 Blood Pressure Location Lt brachial Position Sitting Respiration 18 Pulse 82 Pulse Source Pulse Oximeter Temp 98 F Temp Source Oral Pulse Oximetry (%) 97 Oxygen Delivery Method Room Air Intake Visit Reasons: gout/swollen left hand Intake Note: Gout in left hand, ongoing issue. Allergies Seasonal Allergies Allergy (Mild, Verified 10/19/23 10:11) congestion Tobacco use date assessed: 07/30/23 Dental Screening Dental Screen Date: 07/30/23 HPI HPI Comments History of Present Illness Details This is a 58-year-old male with a past medical history of gout, thalassemia, prediabetes, hypertension and mitral valve regurgitation presenting for gout. The patient says he has had 3 prior episodes this year. They have involved different joints. Currently left hand and wrist are affected. It has been going on since May with the left. He was on a Medrol Dosepak for the right, and symptoms resolved. Patient reports having negative x-ray completed. He is requesting to see Rheumatology. Currently on allopurinol 100 mg x 6 months. Endorses mild to moderate left hand pain. Does not appear red or hot. No fevers or chills. No trauma. No numbness or tingling. Admits to dietary indiscretions with alcohol, red meat. He has read a lot on gout and knows that he needs to restrict her with diet. ROS: Constitutional: No fevers or chills. Musculoskeletal: see HPI Skin: No rash or wounds Physical exam: Constitutional: Alert, in no distress. Musculoskeletal: left wrist/hand: wrist and medial hand and 1st and 2nd MCP joints moderately swollen, no calor, very mild erythema over the 1st and 2nd MCP joints, trouble making a fist due to pain and swelling. Radial pulses 3+. Sensation of the extremities intact. 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 Current occupational exposures/hazards: No Cognitive needs: No Hearing needs: No Vision needs: No Questionnaire Thrive Questionnaire Date Thrive assessed: 04/01/23 SHANNON-7 AMB Questionnaire SHANNON-7 Date SHANNON - 7 assessed: 04/01/23 Source: Developed by Drs. Bharath Sky, Ela Mann, Marco Mann and colleagues, with an educational zaid from [employer]. Physical exam (Primary Care) Vital Signs: Last Vital Signs Temp 98 F 10/19/23 10:12 Pulse 82 10/19/23 10:12 Resp 18 10/19/23 10:12 BP 116/74 10/19/23 10:12 Pulse Ox 97 10/19/23 10:12 Oxygen Delivery Method Room Air 10/19/23 10:12 BMI result Body Mass Index 37.1 Tobacco/Smoking Status: Tobacco use Status Tobacco use date assessed 07/30/23 10/19/23 10:14 Patient Tobacco Use Status Current everyday Tobacco 10/19/23 10:14 Tobacco use type Cigar 10/19/23 10:14 e-Cigarette/Vaping Use Never Used 10/19/23 10:14 Thrive Assessment: Date of Thrive Assessment Date Thrive assessed 04/01/23 10/19/23 10:14 Assessment and Plan Assessment & Plan (1) Gout: Code(s): M10.9 - Gout, unspecified Qualifiers: Gout site: hand Gout etiology: unspecified cause Chronicity: acute Laterality: left Qualified Code(s): M10.9 - Gout, unspecified Plan: Prednisone taper prescribed. Administration and side effects reviewed. Referred to rheumatology. Check CMP and uric acid level. To consider increasing dose of allopurinol. Orders: Orders Uric Acid Today M10.9 - Gout, unspecified Comprehensive Met. Panel Today M10.9 - Gout, unspecified Referrals Rheumatology Referral M10.9 - Gout, unspecified Medications: New prednisone Take 3 tablets every morning by mouth for 4 days, then take 2 tablets daily for 3 days, then take 1 tablet daily for 3 days. 21 tabs 0RF Coding Level of Care Code Est Pt Level 4 (86949) Complex EM visit Add On G2211 Diagnoses Acute gout of left hand, unspecified cause M10.9 Gout site: hand Gout etiology: unspecified cause Chronicity: acute Laterality: left
[2023-10-19 10:12] VITALS: BP 116/74; PULSE 82; RESP 18; TEMP 36.6; O2SAT 97; BMI 37.1
== END 2023-10-19 11:16 | disposition home or self-care (01) ==
PROVIDERS: PCP Family Medicine; Visit Provider Physician Assistant Medical
DX: M10.9 Gout, unspecified (principal)
CPT/HCPCS: 99214

== ENCOUNTER 2023-10-19 10:56 | Outpatient (REF) | payer BC, SELFPAY ==
[2023-10-19 15:02] LABS: Alanine Aminotransferase 17 U/L (0-40); Albumin Level 4.2 g/dL (3.5-5.0); Alkaline Phosphatase 56 U/L (39-117); Anion Gap 12 (12-20); Aspartate Amino Transferase 17 U/L (5-37); Bilirubin Total 0.3 mg/dL (0.0-1.0); Blood Urea Nitrogen 12 mg/dL (9-16); Calcium 9.5 mg/dL (8.4-10.2); Carbon Dioxide 23 mmol/L (22-29); Chloride 108 mmol/L (96-108); Estimated Glomerular Filt Rate > 60; Glucose Random 99 mg/dL (60-115); Potassium 4.2 mmol/L (3.3-5.1); Sodium 139 mmol/L (135-145); Total Protein 6.9 g/dL (6.5-8.0); Uric Acid 5.2 mg/dL (3.4-7.0)
== END 2023-10-19 10:57 | disposition home or self-care (01) ==
LOC: HO.WFDLDS 10:56
PROVIDERS: Visit Provider Physician Assistant Medical
DX: M10.9 Gout, unspecified (principal)
CPT/HCPCS: 36415; 80053; 84550

== ENCOUNTER 2023-11-04 08:04 | Outpatient (AMB) | payer BC, SELFPAY ==
--- NOTE | 2023-11-04 08:16 | AM.OFFWIN_ITS ---
Intake Vital Signs 11/04/23 08:20 Height 5 ft 5 in Weight 213 lb 2 oz BMI 35.5 BP 118/70 Blood Pressure Location Lt brachial Position Sitting Respiration 14 Pulse 69 Pulse Source Pulse Oximeter Pulse Oximetry (%) 98 Oxygen Delivery Method Room Air Intake Visit Reasons: est/ left hand recurring gout Intake Note: patient complaining of recurring inflammation on left hand. patient states he has gout. Patient Tobacco Use Status: Current everyday Tobacco user Allergies Seasonal Allergies Allergy (Mild, Verified 11/04/23 08:40) congestion Medication List - Last Reconciled 11/04/23 by Eleanor Alvarado, [facility]- allopurinol 100 mg PO DAILY 90 days cetirizine (Zyrtec) 10 mg PO DAILY PRN 90 days ferrous sulfate 325 mg orally Every other day; losartan 50 mg PO DAILY 90 days multivitamin 1 tab PO DAILY 90 days Do you need a note to return to daycare/school/sports/work: No HPI HPI Comments History of Present Illness Details 58 y/o here today complaints of a gout f suellen. Reports that he has been suffering from gout for several months now. He is currently maintained on allopurinol 100 mg. Taking as directed. His last gout flare was 08/19/2023 which he was treated with prednisone. He reports that this did help the pain, swelling and symptoms until most recently when he had a recurrence of swelling affecting the left hand and index finger. He does have an appointment with Rheumatology scheduled 12/17/2023. In regards to his diet he has been very restrictive on high purine foods, including alcohol. He is hydrating well. Physical exam: Constitutional: Alert, in no distress. Left hand: edema over second metacarpal and into the proximal phalanx with gouty appearance of the index finger, no erythema or warmth to suggest infection, good cap refill, normal sensation, radial pulse WNL Plan: Chart reviewed; last visit and labs reviewed ordered by other providers. Increase allopurinol from 100mg to 200 mg Colcrys Check Uric acid per his request to trend - see results below FU with Rheum as scheduled COnt low purine diet This note is constructed using voice recognition software. While every effort has been made to ensure accuracy in vest finisher, still errors may have been included Sometimes, these errors may affect the content or meaning of the given sentence . Total time spent caring for the patient today was 30 minutes. This includes time spent before the visit reviewing the chart, time spent during the visit, and time spent after the visit on documentation [facility] Surgical History H/O right inguinal hernia repair Social History Housing: House Patient Tobacco Use Status: Current everyday Tobacco user Tobacco use type: Cigar e-Cigarette/Vaping Use: Never Used Second Hand Smoke Exposure: No Advance Directives Date on File: 09/04/22 Current occupational status: employed Current occupation: [employer]. Current occupational exposures/hazards: No Cognitive needs: No Hearing needs: No Vision needs: No Physical Exam Vital Signs: Last Vital Signs Pulse 69 11/04/23 08:20 Resp 14 11/04/23 08:20 BP 118/70 11/04/23 08:20 Pulse Ox 98 11/04/23 08:20 Oxygen Delivery Method Room Air 11/04/23 08:20 BMI result Body Mass Index 35.5 Results Reviewed Results Reviewed: RUN: 11/04/23 1207 PAGE 1 [facility] [address] [place] [id number] Keyboard Instrument Tuner: Tra Scott M.D. Specimen Inquiry Name: Ciaran Giordano Age/Sex: 58/M : 1965 Unit#: [id number] Attend Dr: Eleanor Alvarado Re11/04/23 Status: REG REF [facility] Disch: SPEC : [id number] NAMITA: 11/04/23 STATUS: COMP REQ : [id number] RECD: 11/04/23-[address]: Eleanor Alvarado COMP: 11/04/23-5 ENTERED: 11/04/23-[address]: ORDERED: Uric Test Result Flag Reference Uric Acid 5.9 3.4-7.0 mg/dL Assessment & Plan Assessment & Plan (1) Gout: Code(s): M10.9 - Gout, unspecified Qualifiers: Chronicity: acute Gout etiology: unspecified cause Gout site: hand Laterality: left Qualified Code(s): M10.9 - Gout, unspecified Plan: . Orders: Orders Uric Acid Today M10.9 - Gout, unspecified Medications: New colchicine TAKE 2 TABS PO X 1 THEN 1 TAB PO 1 HOUR LATER. MAX 1.8MG 0.6 mg PO .additional sig 3 caps 0RF 1 day Coding Level of Care Code Est Pt Level 4 (13904) Diagnoses Acute gout of left hand, unspecified cause M10.9 Chronicity: acute Gout etiology: unspecified cause Gout site: hand Laterality: left
[2023-11-04 08:20] VITALS: BP 118/70; PULSE 69; RESP 14; O2SAT 98; BMI 35.5
== END 2023-11-04 08:54 | disposition home or self-care (01) ==
PROVIDERS: PCP Family Medicine; Visit Provider Nurse Practitioner Family
DX: M10.9 Gout, unspecified (principal)
CPT/HCPCS: 99214

== ENCOUNTER 2023-11-04 08:51 | Outpatient (REF) | payer BC, SELFPAY ==
[2023-11-04 11:55] LABS: Uric Acid 5.9 mg/dL (3.4-7.0)
== END 2023-11-04 08:52 | disposition home or self-care (01) ==
LOC: HO.WFDLDS 08:51
PROVIDERS: Visit Provider Nurse Practitioner Family
DX: M10.9 Gout, unspecified (principal)
CPT/HCPCS: 36415; 84550

== ENCOUNTER 2023-11-16 08:35 | Outpatient (AMB) | payer BC, SELFPAY ==
--- NOTE | 2023-11-16 08:40 | AM.OFFWIN_ITS ---
Intake Vital Signs 11/16/23 08:48 Weight 215 lb 4 oz BP 110/84 Blood Pressure Location Rt brachial Position Sitting Respiration 16 Pulse 74 Pulse Source Pulse Oximeter Temp 97.7 F Temp Source Oral Pulse Oximetry (%) 97 Oxygen Delivery Method Room Air Intake Visit Reasons: est/left hand swelling Intake Note: patient here c/o left hand swelling. Patient Tobacco Use Status: Current everyday Tobacco user Research & Analytics Manager Required: No Allergies Seasonal Allergies Allergy (Mild, Verified 11/16/23 08:51) congestion Medication List - Last Reconciled 11/16/23 by Kishor Hodges CNP allopurinol 200 mg PO DAILY cetirizine (Zyrtec) 10 mg PO DAILY PRN 90 days colchicine 0.6 mg PO .additional sig 1 day ferrous sulfate 325 mg orally Every other day; losartan 50 mg PO DAILY 90 days multivitamin 1 tab PO DAILY 90 days Do you need a note to return to daycare/school/sports/work: No HPI HPI Comments History of Present Illness Details 58-year-old male presents with complaint s of pain and swelling to his left hand. He notes that his symptoms have been ongoing since June 2023.He inadvertently banged his left elbow on a door in late February. 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 He is being treated for gout by his PCP. Recent uric acid level is normal, 5.9. He notes that his symptoms continues to improve. However, he continues to experience pain with attempt of make a fist with his left hand; he notes limited ROM. He is right-hand dominant. He reports occasional tingling. No numbness or loss of sensation. He denies trauma of the left hand. He notes that xray of the left shoulder and hand were unremarkable. He has an appointment with Rheumatology next month. 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 Current occupational exposures/hazards: No Cognitive needs: No Hearing needs: No Vision needs: No Review of Systems Const Details: Const Denies chills, Denies fatigue, Denies fever(s), Denies headache(s) and Denies weakness ENT Denies change in vision, Denies dizziness, Denies headache(s), Denies hearing loss, Denies nasal congestion, Denies sinus pain, Denies sinus pressure and Denies sore throat Resp Denies cough, Denies dyspnea, Denies wheezing and Denies other (shortness of breath) Cardio Denies chest pain, Denies lightheadedness, Denies dyspnea and Denies other (palpitations) Neuro Denies dizziness, Denies headache(s), Denies numbness, Denies tingling and Denies weakness Musc Reports as per HPI Endo Denies fatigue Aller/Immun Denies wheezing Physical Exam Vital Signs: Last Vital Signs Temp 97.7 F 11/16/23 08:48 Pulse 74 11/16/23 08:48 Resp 16 11/16/23 08:48 BP 110/84 11/16/23 08:48 Pulse Ox 97 11/16/23 08:48 Oxygen Delivery Method Room Air 11/16/23 08:48 Const Other: Const General: well developed; No acute distress Nutritional Appearance: well nourished Orientation/consciousness: patient oriented x3 HEENT Head: Yes normocephalic and Yes atraumatic Eyes General: appearance normal, both eyes and all related structures Pupils: Equal, round and reactive pupils present EOM: EOMs intact bilaterally Resp Effort & Inspection: normal respiratory effort Auscultation: clear to auscultation bilaterally Cardio Rate: regular rate Rhythm: regular rhythm Heart sounds: S1 normal heart sound present, S2 normal heart sound present, no gallops, no murmurs and no rubs Bruits: no abdominal aortic bruits and no carotid bruits Neuro General: patient oriented x3 and gait normal, no focal neuro deficit Cranial nerves: Yes Equal, round and reactive pupils present Musc Psych Moderate edema to the left wrist/hand, tender, Limited ROM, skin is warm, cap refill less than 3 seconds, positive radial pulse, no overt trauma/injury Affect: normal affect Assessment & Plan Assessment & Plan (1) Swelling of left hand: Code(s): M79.89 - Other specified soft tissue disorders Plan: Left hand pain and swelling, ongoing for the past 4 months, refractory to allopurinol. Recent uric acid level is normal, 5.9 Moderate edema to the left wrist/hand, tender, Limited ROM, skin is warm, cap refill less than 3 seconds, positive radial pulse, no overt trauma/injury Naproxen 500 mg twice daily as needed ordered. Advised to take as prescribed and with meals. Instructed on the risks, benefits, and potential adverse reactions of the medication Cool compresses encouraged Advised to elevate his right forearm as needed to reduce swelling Follow-up with PCP and Rheumatology as planned Return with worsening or new symptoms Verbalized understanding and agreed with the plan (2) Left hand pain: Code(s): M79.642 - Pain in left hand Plan: Plan as above Medications: New naproxen 500 mg PO BID PRN 30 tabs 1RF pain Kishor Hodges CNP Changed From allopurinol 100 mg PO DAILY 90 days 90 tabs 2RF To allopurinol 200 mg PO DAILY Tra Gonzales MD Coding Level of Care Code Est Pt Level 3 (32075) Diagnoses Swelling of left hand M79.89 Left hand pain M79.642
[2023-11-16 08:48] VITALS: BP 110/84; PULSE 74; RESP 16; TEMP 36.5; O2SAT 97
== END 2023-11-16 09:54 | disposition home or self-care (01) ==
PROVIDERS: PCP Family Medicine; Visit Provider Nurse Practitioner Family
DX: M79.89 Other specified soft tissue disorders (principal); M79.642 Pain in left hand

== ENCOUNTER → 2023-11-16 08:35 | Outpatient (BNVA) | payer BC, SELFPAY | PROVIDERS: PCP Family Medicine | DX: M79.89 Other specified soft tissue disorders (principal); M79.642 Pain in left hand ==

== ENCOUNTER 2023-12-17 08:35 | Outpatient (AMB) | payer BC, SELFPAY ==
[2023-12-17 08:38] VITALS: BP 118/68; PULSE 72; O2SAT 96; BMI 34.9
--- NOTE | 2023-12-17 08:38 | MHC.OFFVIS ---
Vital Signs 12/17/23 08:38 Height 5 ft 5 in Weight 209 lb 14.081 oz BMI 34.9 BP 118/68 Blood Pressure Location Lt brachial Position Sitting Pulse 72 Pulse Source Pulse Oximeter Pulse Oximetry (%) 96 Oxygen Delivery Method Room Air Intake Visit Reasons: Gout/lm Intake Note: New Patient internally referred by [facility], PCP. Presents today for Gout. He states it's been in hand,left wrist, he gets inflammation in his left ankle at times. All this has been going on for years. He has been using Allopurinal and colchicine. Allergies Seasonal Allergies Allergy (Mild, Verified 12/17/23 08:43) congestion Medication List - Last Reconciled 12/17/23 by Kishor Wallace MD allopurinol 200 mg (2 x 100 mg) PO DAILY cetirizine (Zyrtec) 10 mg PO DAILY PRN 90 days colchicine 0.6 mg PO BID ferrous sulfate 325 mg orally Every other day; losartan 50 mg PO DAILY 90 days multivitamin 1 tab PO DAILY 90 days naproxen 500 mg PO BID PRN prednisone Take 4 tabs daily for 1 week, then 3 tabs daily for 1 week, then 2 tabs daily for 1 week then 1 tab daily for 1 week then stop HPI Comments Details: This is a 58-year-old male with gout who presents for rheumatology evaluation. He states that he was diagnosed with gout around [address] [place] [address] since 11/04. He was having gout flare-ups affecting his feet. He was started on allopurinol 100 mg daily and colchicine with resolution of gout. He states that he self-discontinued his medications as he was feeling well. Earlier this year he started having gout flare-ups affecting his left elbow, his left hand followed by the his right hand as well as his ankles. Get prednisone tapers from his PCP with improvement. He was restarted on allopurinol and it was increased to 200 mg daily 1 or 2 months ago. States that the prednisone helps but he still has pain and swelling in his left hand, left ankle today and right 2nd toe. He denies history of kidney stones. 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 Current occupational exposures/hazards: No Cognitive needs: No Hearing needs: No Vision needs: No Review of Systems Musc Reports arthralgias and Reports joint swelling Physical Exam Vital Signs: Last Vital Signs Pulse 72 12/17/23 08:38 BP 118/68 12/17/23 08:38 Pulse Ox 96 12/17/23 08:38 Oxygen Delivery Method Room Air 12/17/23 08:38 BMI result Body Mass Index 34.9 Const General: cooperative, healthy appearing and comfortable Nutritional Appearance: obese Orientation/consciousness: patient oriented x3 Limitations: no limitations HEENT Head: Yes normocephalic and Yes atraumatic Resp Effort & Inspection: normal respiratory effort and able to speak in complete sentences Skin General skin exam: no rashes or lesions noted Neuro General: patient oriented x3 Extrem Other: Palpable tophus just anterior to the left elbow Left wrist and hand swelling Left 2nd finger swelling Right wrist is painful with full flexion Left ankle swelling, warmth and tenderness Right 2nd MTP tenderness Assessment & Plan Assessment & Plan (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 Then patient's self DC meds Multiple gout flare-ups in 2023. Allopurinol restarted Code(s): M1A.9XX1 - Chronic gout, unspecified, with tophus (tophi) Category: Medical Plan: This is a 58-year-old male with gout who presents for rheumatology evaluation. On exam he has palpable tophus on his left elbow, he has acute polyarticular gout today. It seems that he gout flare-ups have not completely resolved for a few months now. Start prednisone taper Start colchicine 0.6 mg Twice daily. Advised patient to cut down to 1 tab daily if starting to have GI upset Continue with allopurinol 200 mg daily Check uric acid level before next visit in 6 weeks. Given palpable tophi, I would consider his target uric acid level less than 5 mg/dL Labs before next visit in 6 weeks Plan I spent 46 minutes reviewing patient's chart, evaluating patient, ordering diagnostic workup, counseling patient and documenting in the chart Orders: Orders Complete Blood Count Auto Diff 6 Weeks M10.9 - Gout, unspecified C Reactive Protein 6 Weeks M10.9 - Gout, unspecified Erythrocyte Sedimentation Rate 6 Weeks M10.9 - Gout, unspecified Uric Acid 6 Weeks M10.9 - Gout, unspecified Comprehensive Met. Panel 6 Weeks M10.9 - Gout, unspecified Medications: New prednisone Take 4 tabs daily for 1 week, then 3 tabs daily for 1 week, then 2 tabs daily for 1 week then 1 tab daily for 1 week then stop 70 tabs 0RF allopurinol 200 mg (2 x 100 mg) PO DAILY 60 tabs 1RF Changed From colchicine TAKE 2 TABS PO X 1 THEN 1 TAB PO 1 HOUR LATER. MAX 1.8MG 0.6 mg PO .additional sig 3 caps 0RF 1 day To colchicine 0.6 mg PO BID 60 caps 1RF Coding Level of Care Code New Pt Level 4 (21966) Diagnoses Tophaceous gout M1A.9XX1
== END 2023-12-17 09:16 | disposition home or self-care (01) ==
PROVIDERS: PCP Family Medicine; Visit Provider Student in an Organized Health Care Education/Training Program
DX: M1A.9XX1 Chronic gout, unspecified, with tophus (tophi) (principal)
CPT/HCPCS: 99204

== ENCOUNTER → 2023-12-17 08:35 | Outpatient (BNVA) | payer BC, SELFPAY | PROVIDERS: PCP Family Medicine; Visit Provider Student in an Organized Health Care Education/Training Program ==

== ENCOUNTER 2024-02-02 08:34 | Outpatient (REF) | payer BC, SELFPAY ==
[2024-02-02 11:36] LABS: MANUAL DIFF FLAG NO
[2024-02-02 11:55] LABS: Eosinophils Absolute Auto 0.1 X10*3/uL (0.0-0.4); Hematocrit 35.5 % (42.0-52.0); Imm Gran Abs Auto 0.01 X10*3/uL (0.00-0.03); Imm Gran Pct Auto 0.2 % (0.0-0.4); Lymphocytes Absolute Auto 1.7 X10*3/uL (1.2-4.9); Lymphocytes Percent Auto 43.1 % (20-40); Mean Corpuscular Hemoglobin 19.3 pg (27.0-33.0); Mean Corpuscular Volume 62.3 fL (80.0-98.0); Monocytes Absolute Auto 0.4 X10*3/uL (0.1-1.2); Monocytes Percent Auto 8.7 % (2-11); Neutrophils Absolute Auto 1.8 x10*3/uL (2.0-8.3); Platelet Count 172 X10*3/uL (160-400); Red Cell Distribution Width 19.4 % (11.0-16.0)
[2024-02-02 12:30] LABS: Erythrocyte Sedimentation Rate 2 MM/HR (0-15)
[2024-02-02 12:56] LABS: Alanine Aminotransferase 20 U/L (0-40); Albumin Level 4.3 g/dL (3.5-5.0); Alkaline Phosphatase 52 U/L (39-117); Anion Gap 15 (12-20); Aspartate Amino Transferase 23 U/L (5-37); Bilirubin Total 0.5 mg/dL (0.0-1.0); Blood Urea Nitrogen 14 mg/dL (9-16); C Reactive Protein < 0.10 mg/dL (< or = 0.50); Calcium 8.9 mg/dL (8.4-10.2); Carbon Dioxide 25 mmol/L (22-29); Chloride 104 mmol/L (96-108); Estimated Glomerular Filt Rate > 60; Glucose Random 129 mg/dL (60-115); Potassium 4.2 mmol/L (3.3-5.1); Sodium 140 mmol/L (135-145); Total Protein 6.7 g/dL (6.5-8.0); Uric Acid 6.2 mg/dL (3.4-7.0)
== END 2024-02-02 08:35 | disposition home or self-care (01) ==
LOC: HO.WFDLDS 08:34
PROVIDERS: Visit Provider Student in an Organized Health Care Education/Training Program
DX: R10.9 Unspecified abdominal pain (principal)
CPT/HCPCS: 36415; 80053; 84550; 85025; 85652; 86140

== ENCOUNTER 2024-02-04 08:44 | Outpatient (AMB) | payer BC, SELFPAY ==
--- NOTE | 2024-02-04 08:53 | MHC.OFFVIS ---
Vital Signs 02/04/24 08:56 Height 5 ft 5 in Weight 211 lb 6.773 oz BMI 35.2 BP 112/70 Blood Pressure Location Lt brachial Position Sitting Respiration 18 Pulse 67 Pulse Source Pulse Oximeter Pulse Oximetry (%) 98 Oxygen Delivery Method Room Air Intake Visit Reasons: Gout Intake Note: Patient presents for Gout. Allergies Seasonal Allergies Allergy (Mild, Verified 02/04/24 08:55) congestion Medication List - Last Reconciled 02/04/24 by Kishor Wallace MD allopurinol 300 mg PO DAILY cetirizine (Zyrtec) 10 mg PO DAILY PRN 90 days colchicine 0.6 mg PO BID ferrous sulfate 325 mg orally Every other day; losartan 50 mg PO DAILY 90 days multivitamin 1 tab PO DAILY 90 days naproxen 500 mg PO BID PRN prednisone orally; At the onset of a gout flare-up take 3 tabs daily for 3 days then 2 tabs daily for 3 days then 1 tab daily for 3 days then stop HPI Comments Details: 58-year-old male with gout returns for follow-up. Feels much better overall. He is on colchicine 0.6 mg Twice daily, well tolerated with no GI upset and allopurinol 20 mg daily. Has some mild pain and stiffness of his left index Initial history: This is a 58-year-old male with gout who presents for rheumatology evaluation. He states that he was diagnosed with gout around [address] [place] [address] since 11/04. He was having gout flare-ups affecting his feet. He was started on allopurinol 100 mg daily and colchicine with resolution of gout. He states that he self-discontinued his medications as he was feeling well. Earlier this year he started having gout flare-ups affecting his left elbow, his left hand followed by the his right hand as well as his ankles. Get prednisone tapers from his PCP with improvement. He was restarted on allopurinol and it was increased to 200 mg daily 1 or 2 months ago. States that the prednisone helps but he still has pain and swelling in his left hand, left ankle today and right 2nd toe. He denies history of kidney stones. 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 Current occupational exposures/hazards: No Cognitive needs: No Hearing needs: No Vision needs: No Review of Systems Musc Reports arthralgias and Reports stiffness Physical Exam Vital Signs: Last Vital Signs Pulse 67 02/04/24 08:56 Resp 18 02/04/24 08:56 BP 112/70 02/04/24 08:56 Pulse Ox 98 02/04/24 08:56 Oxygen Delivery Method Room Air 02/04/24 08:56 BMI result Body Mass Index 35.2 Const General: cooperative, healthy appearing and comfortable Nutritional Appearance: obese Orientation/consciousness: patient oriented x3 Limitations: no limitations HEENT Head: Yes normocephalic and Yes atraumatic Resp Effort & Inspection: normal respiratory effort and able to speak in complete sentences Skin General skin exam: no rashes or lesions noted Neuro General: patient oriented x3 Extrem Other: Palpable tophus just anterior to the left elbow Left hand and wrist swelling resolved, very subtle swelling of the left index PIP, inability to fully flex the left index No right wrist swelling, tenderness or pain with flexion-extension No ankle swelling, warmth erythema or tenderness Assessment & Plan Assessment & Plan (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 Then patient's self DC meds Multiple gout flare-ups in 2023. Allopurinol restarted Code(s): M1A.9XX1 - Chronic gout, unspecified, with tophus (tophi) Category: Medical Plan: This is a 58-year-old male with gout who presents for follow-up. Doing much better overall. On allopurinol 200 mg daily and colchicine 0.6 mg Twice daily Uric acid level is 6.2 mg/dL. Not at target Increase allopurinol to 300 mg daily Continue colchicine 0.6 mg Twice daily Prednisone as needed for flare-ups Discussed purine free diet. Advised patient to be as compliant as possible especially with the holiday season approaching Labs before next visit in 3 months Plan I spent 16 minutes reviewing patient's chart, evaluating patient, ordering diagnostic workup, counseling patient and documenting in the chart Orders: Orders Comprehensive Met. Panel 3 Months M1A.9XX1 - Chronic gout, unspecified, with tophus (tophi) Uric Acid 3 Months M1A.9XX1 - Chronic gout, unspecified, with tophus (tophi) Medications: New allopurinol 300 mg PO DAILY 90 tabs 1RF prednisone orally; At the onset of a gout flare-up take 3 tabs daily for 3 days then 2 tabs daily for 3 days then 1 tab daily for 3 days then stop 18 tabs 0RF Refilled colchicine 0.6 mg PO BID 180 caps 0RF Discontinued allopurinol Discontinued Reason: Doctor's Order 200 mg (2 x 100 mg) PO DAILY 60 tabs 1RF Coding Level of Care Code Est Pt Level 3 (89177) Diagnoses Tophaceous gout M1A.9XX1
[2024-02-04 08:56] VITALS: BP 112/70; PULSE 67; RESP 18; O2SAT 98; BMI 35.2
== END 2024-02-04 09:31 | disposition home or self-care (01) ==
PROVIDERS: PCP Family Medicine; Visit Provider Student in an Organized Health Care Education/Training Program
DX: M1A.9XX1 Chronic gout, unspecified, with tophus (tophi) (principal)
CPT/HCPCS: 99213

== ENCOUNTER 2024-05-02 08:49 | Outpatient (REF) | payer BC, SELFPAY ==
--- OUTSIDE RECORDS SUMMARY | 2024-05-02 09:09 | XMS_ITS | Clinical Summary ---
Author Organization [facility] Facility Address [address] [address] Care Team Providers Care Cementer Name Role Phone Vee Chase MD Primary Care Provider Social History Tobacco Use Types Packs/Day Years Used Date Smoking Tobacco: Never Assessed Sex and Gender Information Value Date Recorded Sex Assigned at Not on file Legal Sex Male 4:09 PM EST Gender Identity Not on file Sexual Orientation Not on file Plan of Treatment Health Maintenance Due Date Last Done Comments Colorectal Cancer Screening: Annual FOBT 08/06/2012 Colorectal Cancer Screening: Colonoscopy 08/06/2012 Colorectal Cancer Screening: Sigmoidoscopy 08/06/2012 Influenza Vaccine (#1) 2023 Hepatitis B Vaccine Aged Out No longe r eligible based on patient's age to complete this topic Pneumococcal Vaccine: Pediat rics (0 to 5 Years) and At-Risk Patients (6 to 64 Years) Aged Out No longer eligible b ased on patient's age to complete this topic Insurance [facility] Care Teams Cementer Relationship Specialty Start Date End Date Vee Chase MD [address] [place] [address] PCP - General Internal Medicine 01/22/21
[2024-05-02 12:52] LABS: Anion Gap 12 (12-20)
[2024-05-02 13:07] LABS: Alanine Aminotransferase 29 U/L (0-40); Albumin Level 4.4 g/dL (3.5-5.0); Alkaline Phosphatase 59 U/L (39-117); Aspartate Amino Transferase 27 U/L (5-37); Bilirubin Total 0.5 mg/dL (0.0-1.0); Blood Urea Nitrogen 15 mg/dL (9-16); Calcium 9.4 mg/dL (8.4-10.2); Carbon Dioxide 25 mmol/L (22-29); Chloride 108 mmol/L (96-108); Estimated Glomerular Filt Rate > 60; Glucose Random 110 mg/dL (60-115); Sodium 140 mmol/L (135-145); Total Protein 7.3 g/dL (6.5-8.0); Uric Acid 5.2 mg/dL (3.4-7.0)
== END 2024-05-02 08:50 | disposition home or self-care (01) ==
LOC: HO.WFDLDS 08:49
PROVIDERS: Visit Provider Student in an Organized Health Care Education/Training Program
DX: M1A.9XX1 Chronic gout, unspecified, with tophus (tophi) (principal)
CPT/HCPCS: 36415; 80053; 84550

== ENCOUNTER 2024-05-10 07:36 | Outpatient (AMB) | payer BC, SELFPAY ==
--- OUTSIDE RECORDS SUMMARY | 2024-05-10 07:38 | XMS_ITS | Clinical Summary ---
Author Organization [facility] Facility Address [address] [address] Care Team Providers Care Magazine Grinder Loader Name Role Phone Vee Chase MD Primary Care Provider [phone] Social History Tobacco Use Types Packs/Day Years [...] patient's age to complete this topic Insurance [facility] Care Teams Magazine Grinder Loader Relationship Specialty Start Date End Date Vee Chase MD [address] [place] [address] PCP - General Internal Medicine 01/22/21
--- NOTE | 2024-05-10 07:42 | A.OFFVIS_ITS ---
Vital Signs 05/10/24 07:49 Height 5 ft 5 in Weight 207 lb 3.752 oz BMI 34.5 BP 120/72 Blood Pressure Location Lt brachial Position Sitting Pulse 78 Pulse Source Pulse Oximeter Pulse Oximetry (%) 97 Oxygen Delivery Method Room Air Intake Visit Reasons: Gout Intake Note: Patient presents for Gout. Allergies Seasonal Allergies Allergy (Mild, Verified 05/10/24 07:47) congestion Medication List - Last Reconciled 05/10/24 by Alicia Bassett MD allopurinol 300 mg PO DAILY cetirizine (Zyrtec) 10 mg PO DAILY PRN 90 days colchicine 0.6 mg PO BID ferrous sulfate 325 mg orally Every other day; losartan 50 mg PO DAILY 90 days multivitamin 1 tab PO DAILY 90 days prednisone orally; At the onset of a gout flare-up take 3 tabs daily for 3 days then 2 tabs daily for 3 days then 1 tab daily for 3 days then stop HPI Comments Details: Patient is a 58-year-old male hypertension, chronic microcytic anemia secondary to thalassemia and tophaceous gout here today for follow up Interval History: Patient last seen 02/04/[address] Wallace. At that time he was following up for his gout. He was on colchicine 0.6 mg twice a day and allopurinol 200 mg daily. His uric acid was 6.2 at that check and not at target his allopurinol was increased to 300 mg daily. Today patient reports he is doing well. No flare since last visit and has been tolerating his allopurinol without any rash, GI side effects or any other concerns. Rheumatologic History: Tophaceous Gout Allopurinol 11/2023 Initial history: This is a 58-year-old male with gout who presents for rheumatology evaluation. He states that he was diagnosed with gout around [address] [place] [address] since 11/04. He was having gout flare-ups affecting his feet. He was started on allopurinol 100 mg daily and colchicine with resolution of gout. He states that he self-discontinued his medications as he was feeling well. Earlier this year he started having gout flare-ups affecting his left elbow, his left hand followed by the his right hand as well as his ankles. Get prednisone tapers from his PCP with improvement. He was restarted on allopurinol and it was increased to 200 mg daily 1 or 2 months ago. States that the prednisone helps but he still has pain and swelling in his left hand, left ankle today and right 2nd toe. He denies history of kidney stones. 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 Current occupational exposures/hazards: No Cognitive needs: No Hearing needs: No Vision needs: No Review of Systems Const Details: Review of Systems Constitutional: Denies fever, chills, weight loss ENT: Denies vision changes, eye pain or eye redness, dental caries, dry mouth GI: Denies nausea, vomiting, diarrhea, abdominal pain, change in BM Pulm: Denies SOB, ESCOBAR, hemoptysis, wheezing Cards: Denies chest pain, palpitations Skin: Denies Raynaud's, rash, nail changes, photosensitivity, FORESTRY TECHNICAL OFFICER: Denies headaches, weakness, paresthesias, recurrent falls MSK: as per HPI All other systems reviewed and are unremarkable except noted above Physical Exam Vital Signs: Last Vital Signs Pulse 78 05/10/24 07:49 BP 120/72 05/10/24 07:49 Pulse Ox 97 05/10/24 07:49 Oxygen Delivery Method Room Air 05/10/24 07:49 BMI result Body Mass Index 34.5 Vital signs reviewed Physical Examination CONSTITUITIONAL Patient alert and cooperative. Well appearing and in no apparent painful distress HEENT Conjunctiva and sclera clear. ?Pupils equal round and reactive to light. ?No lymphadenopathy. ? CHEST/RESPIRATORY SYSTEM Normal respiratory effort and able to speak in complete sentences. ?Clear to auscultation bilaterally. ?No crackles, rales, rhonchi, wheezes heard. CARDIAC SYSTEM Regular rate and rhythm. ?S1 and S2 heard no murmurs. ?Radial pulses intact bilaterally MSK Hands: ?Good personnel scheduler strength bilaterally. No deformities noted. ?No synovitis noted to the MCPs, PIPs or DIPs. ?No tenderness to palpation of these joints. Scattered Heberden nodes noted Wrists: ?Full range of motion at the wrists without pain. ?No tenderness to palpation or synovitis noted to the wrists. Elbows: Full range of motion without pain. No tenderness, weakness, swelling, increased warmth or erythema. Bursa noted to the left elbow with small tophi Shoulders: Full range of motion without pain. No tenderness, weakness, swelling, increased warmth or erythema. Hips: Full range of motion without pain. Hip bursa: No tenderness to palpation Knees: ?Full range of motion. ?No tenderness, swelling, increased warmth or erythema.?Crepitations felt bilaterally Ankles: Full range of motion. ?No tenderness, swelling, increased warmth or erythema.? Feet: ?Negative squeeze test. ?No tenderness to palpation or swelling of the MTPs. Tender points:?No tenderness to palpation of the bilateral trapezius, supraspinatus, greater trochanters, anterior costochondral junctions, bilateral gluteal areas, bilateral suboccipital muscle insertions SKIN Skin intact without rashes. Results Reviewed Results Reviewed: Laboratory Tests 02/02/24 05/02/24 08:35 08:50 WBC 4.0 L RBC 5.70 Hgb 11.0 L Hct 35.5 L Plt Count 172 ESR 2 Sodium 140 Potassium 5.0 Chloride 108 Carbon Dioxide 25 BUN 15 Creatinine 0.82 Uric Acid 6.2 5.2 Calcium 9.4 Total Bilirubin 0.5 AST 27 ALT 29 Alkaline Phosphatase 59 C-Reactive Protein < 0.10 Total Protein 7.3 Albumin 4.4 Assessment & Plan Assessment & Plan (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 Then patient's self DC meds Multiple gout flare-ups in 2023. Allopurinol restarted Code(s): M1A.9XX1 - Chronic gout, unspecified, with tophus (tophi) Category: Medical Plan: #Chronic Tophaceous gout Patient is a 58-year-old male with chronic tophaceous gout currently in [place]. Is doing well on allopurinol with no recurrence of flares. Colchicine for prophylaxis. Uric acid goal for this patient with tophaceous gout is less than 5. Uric acid today 5.2. Almost at goal but can still be improved. We will increase the allopurinol to 450 mg daily and continue colchicine prophylaxis until results are stable and at goal for at least 2 blood checks 3 months apart. Plan - UA not at goal, UA goal < 5 - Increase allopurinol to 450mg daily - Continue colchicine 0.6mg bid - Prednisone taper for flares - RTC 3 months - Labs before visit: CBC, CMP, ESR, CRP, UA (2) Encounter for monitoring allopurinol therapy: Code(s): Z51.81 - Encounter for therapeutic drug level monitoring; Z79.899 - Other moth exterminator (current) drug therapy Plan: #Long-term Current Use of Allopurinol Risks and benefits of allopurinol discussed with patient Benefits include decreased gout flares, remission of gout and reduction of tophi Risks include allopurinol hypersensitivity syndrome which is a severe cutaneous adverse reaction associated with allopurinol use particularly in patients who are HLA B*5801 positive, increased transaminases, GI upset including diarrhea, nausea and vomiting, and other dermatologic manifestations. (3) On colchicine therapy: Code(s): Z79.899 - Other moth exterminator (current) drug therapy Plan: #Long-term use of colchicine Risks and benefits of long-term colchicine for the management of this patient's gout discussed with patient. Benefits include reduced occurrence of flares while we titrate and regulate his uric acid on allopurinol and other uric acid lowering medications. ? Risks include worsening myalgias especially if on statins and GI upset including diarrhea Plan I spent 25 minutes reviewing the record and labs, taking a history, examining the patient, discussing the treatment plan, ordering diagnostic work up and documenting in the medical record Orders: Orders Complete Blood Count Auto Diff 3 Months M1A.9XX1 - Chronic gout, unspecified, with tophus (tophi) Erythrocyte Sedimentation Rate 3 Months M1A.9XX1 - Chronic gout, unspecified, with tophus (tophi) C Reactive Protein 3 Months M1A.9XX1 - Chronic gout, unspecified, with tophus (tophi) Uric Acid 3 Months M1A.9XX1 - Chronic gout, unspecified, with tophus (tophi) Comprehensive Met. Panel 3 Months M1A.9XX1 - Chronic gout, unspecified, with tophus (tophi) Medications: Changed From allopurinol 300 mg PO DAILY 90 tabs 1RF M1A.9XX1 - Chronic gout, unspecified, with tophus (tophi) To allopurinol 450 mg (1.5 x 300 mg) PO DAILY 90 days 135 tabs 1RF M1A.9XX1 - Chronic gout, unspecified, with tophus (tophi) Refilled colchicine 0.6 mg PO BID 180 caps 1RF M1A.9XX1 - Chronic gout, unspecified, with tophus (tophi) Coding Level of Care Code Est Pt Level 3 (30505) Complex EM visit Add On G2211 Diagnoses Tophaceous gout M1A.9XX1 Encounter for monitoring allopurinol therapy Z51.81; Z79.899 On colchicine therapy Z79.899
[2024-05-10 07:49] VITALS: BP 120/72; PULSE 78; O2SAT 97; BMI 34.5
== END 2024-05-10 08:21 | disposition home or self-care (01) ==
LOC: HO.RHE 07:37
PROVIDERS: PCP Family Medicine; Visit Provider Student in an Organized Health Care Education/Training Program
DX: M1A.9XX1 Chronic gout, unspecified, with tophus (tophi) (principal); Z51.81 Encounter for therapeutic drug level monitoring; Z79.899 Other long term (current) drug therapy
CPT/HCPCS: 99213

== ENCOUNTER → 2024-05-10 07:36 | Outpatient (BNVA) | payer BC, SELFPAY | PROVIDERS: PCP Family Medicine; Visit Provider Student in an Organized Health Care Education/Training Program ==

== ENCOUNTER 2024-07-25 09:09 | Outpatient (REF) | payer BC, SELFPAY ==
--- OUTSIDE RECORDS SUMMARY | 2024-07-25 09:45 | XMS_ITS | Clinical Summary ---
Author Organization [facility] Facility Address [address] [place] [id number] Care Team Providers Care Fitter Mechanic Name Role Phone Vee Chase MD Primary Care Provider [phone] Social History Tobacco Use Types Packs/Day Years [...] Colonoscopy 08/06/2012 Colorectal Cancer Screening: Sigmoidoscopy 08/06/2012 Pneumococcal Vaccine: 50+ Ye ars (1 of - PCV) 08/06/2013 Influenza Vaccine (Season Ended) 2024 Hepatitis B Vaccine Aged Out No longe r eligible based on patient's age to complete this topic Insurance [facility] Care Teams Fitter Mechanic Relationship Specialty Start Date End Date O'Bautista, Vee M, MD [address] [place] [address] PCP - General Internal Medicine 01/22/21
[2024-07-25 11:23] LABS: MANUAL DIFF FLAG NO
[2024-07-25 11:33] LABS: Appearance Urine Clear; Color Urine Yellow; Glucose Urine UA Negative (Negative); Leukocyte Esterase Urine Negative (Negative); Nitrite Urine Negative (Negative); Specific Gravity - Urine 1.015 (1.005-1.025); Urine Blood Negative (Negative); Urine Ketones Negative (Negative); Urine Protein Negative (Neg-Trace)
[2024-07-25 11:52] LABS: Basophils Percent Auto 0.7 % (0-2); Eosinophils Absolute Auto 0.2 X10*3/uL (0.0-0.4); Eosinophils Percent Auto 3.6 % (0-4); Hematocrit 36.4 % (42.0-52.0); Hemoglobin 11.4 g/dl (14.0-18.0); Imm Gran Abs Auto 0.01 X10*3/uL (0.00-0.03); Imm Gran Pct Auto 0.2 % (0.0-0.4); Lymphocytes Absolute Auto 1.8 X10*3/uL (1.2-4.9); Lymphocytes Percent Auto 39.8 % (20-40); Mean Corpuscular HGB Conc 31.3 g/dl (31.0-36.0); Mean Corpuscular Hemoglobin 19.6 pg (27.0-33.0); Mean Platelet Volume 10.2 fL (9.4-12.4); Monocytes Absolute Auto 0.4 X10*3/uL (0.1-1.2); Monocytes Percent Auto 8.5 % (2-11); Neutrophils Absolute Auto 2.1 x10*3/uL (2.0-8.3); Neutrophils Percent Auto 47.2 % (45-73); Platelet Count 157 X10*3/uL (160-400); Red Blood Count 5.81 X10*6/uL (4.60-5.80); Red Cell Distribution Width 18.2 % (11.0-16.0); White Blood Count 4.5 X10*3/uL (4.8-10.8)
[2024-07-25 11:53] LABS: Mean Corpuscular Volume 62.7 fL (80.0-98.0)
[2024-07-25 12:07] LABS: TSH reflex Free T4 1.98 uIU/mL (0.32-4.0)
[2024-07-25 12:08] LABS: Prostate Specific Antigen Scr 0.52 ng/mL (<0.05-4.0)
[2024-07-25 12:18] LABS: Creatinine Urine 56.02 mg/dL; Microalbumin Urine < 5.0 mg/L
[2024-07-25 12:19] LABS: Alanine Aminotransferase 33 U/L (0-40); Albumin Level 4.5 g/dL (3.5-5.0); Alkaline Phosphatase 57 U/L (39-117); Anion Gap 12 (12-20); Aspartate Amino Transferase 26 U/L (5-37); Bilirubin Total 0.6 mg/dL (0.0-1.0); Blood Urea Nitrogen 15 mg/dL (9-16); C Reactive Protein < 0.10 mg/dL (< or = 0.50); Calcium 9.7 mg/dL (8.4-10.2); Carbon Dioxide 26 mmol/L (22-29); Chloride 107 mmol/L (96-108); Cholesterol 222 mg/dL (<200); Estimated Glomerular Filt Rate > 60; Glucose Fasting 111 mg/dL (60-99); Glucose Random 110 mg/dL (60-115); HDL Cholesterol 66 mg/dL (>40); LDL Cholesterol Calculated 127 mg/dL (<100); Potassium 4.2 mmol/L (3.3-5.1); Sodium 141 mmol/L (135-145); Total Protein 6.8 g/dL (6.5-8.0); Triglycerides 149 mg/dL (<150); Uric Acid 4.9 mg/dL (3.4-7.0)
[2024-07-25 12:37] LABS: Erythrocyte Sedimentation Rate 2 MM/HR (0-15)
== END 2024-07-25 09:10 | disposition home or self-care (01) ==
LOC: HO.WFDLDS 09:09
PROVIDERS: Referring Provider Student in an Organized Health Care Education/Training Program; Visit Provider Family Medicine
DX: Z00.00 Encounter for general adult medical examination without abnormal findings (principal); Z12.5 Encounter for screening for malignant neoplasm of prostate; I10 Essential (primary) hypertension; M1A.9XX1 Chronic gout, unspecified, with tophus (tophi)
CPT/HCPCS: 36415; 80053; 80061; 81003; 82043; 82570; 84153; 84443; 84550; 85025; 85652; 86140

== ENCOUNTER 2024-08-01 08:49 | Outpatient (AMB) | payer BC, SELFPAY ==
--- OUTSIDE RECORDS SUMMARY | 2024-08-01 09:00 | XMS_ITS | Data Portability ---
Author Organization [place] - [facility], Allergy Address [address] [address] Care Team Providers Care Leaf Binner Name Role Phone SHOAIB DANIELSON Primary Care Provider [phone] Assessment Encounter Date Assessment Date Assessment LastModified by Organization Details LastModified Time 07/26/2024 07/26/2024 Follow-up of dysplasia of nasal polyps with nasal endoscopy was benign. There is no evidence of regrowth of nasal polyps off of the middle turbinates. No symptoms of bleeding or pain of the nasal cavity. Unfortunately he has developed a new breathing pattern at night with loud snoring associated with gasping arousals consistent with sleep apnea. He has not had any benefit from trial of oral appliance [id number] . He has lost weight with dietary effort to manage his gout. Recommend sleep study. We may review results approximately 1 month after study. I have discussed the value of home sleep study, in-lab sleep study and potential CPAP use [email or web address] Not available 07/26/2024 16:03:00 Plan of Treatment Reminders Order Date Submit Date Provider Last Modified By Organization Details Last Modified Time Details Appointments None recorded. Lab None recorded. Referral None recorded. Procedures polysomnog ameya, diagnostic (PROC) 2024 025 [facility] Sleep Medicine Services, [address] [facility], [place], [address], 14:35:17 Surgeries None recorded. Imaging None recorded. Medication Orders None recorded. Patient TargetsNo targets recorded. Patient InstructionsNo instructions recorded. Reason for Referral None Reported. Problems Name Problem SNOMED Code Status Onset Date Resolution Date Notes Provider Name and Address Organization Details Recorded Time Follow-up visit Active 2020 Medical surveillan ce following completed treatment; Note: Date Diagnosed: 06/08/2020 3:59 PM (Z09) Not Available [facility] 4 03:23:13 Polyp of nasal cavity 256851705 Active 2019 Polyp of nasal cavity; Note: Date Diagnosed: 01/11/2020 3:42 PM (J33.0) Not Available [facility] 4 03:23:13 Sensorine ural hearing loss of bilateral ears 334428045 Active 2019 Sensorineu ral hearing loss, bilateral; Note: Date Diagnosed: 01/11/2020 3:05 PM (H90.3) Not Available [facility] 4 03:23:13 Snoring 57631852 Active 2024 DEANDRA AGUILERA MD [address] [place] [address], [place], [address] , [facility] 15:56:43 Problem Notes None recorded. Procedures Surgical History Date Name Laterality Status Provider Name and Address Organization Details Recorded Time 07/26/2024 NasalEndos copy_DP completed DEANDRA AGUILERA MD [address] [place] [address], [place], [address], [facility] 07/26/2024 15:56:31 Imaging Results None recorded. Procedure Notes None recorded. Medical Equipment None Reported. Allergies No known drug allergies Medications Name Sig Start Date Stop Date Status Note LastModified by Organization Details LastModified Time losartan 50 mg tablet TAKE 1 TABLET DAILY active Not Available Not Available No t Available prednison e 10 mg tablet PLEASE SEE ATTACHED FOR DETAILED DIRECTIO NS 07/26 completed Not Available Not Available Not Available prednison e 20 mg tablet TAKE 3 TABS EVERY MORNING FOR 4 DAYS, THEN 2 TABS DAILY FOR 3 DAYS, THEN 1 TAB DAILY FOR 3 DAYS. 07/26 completed Not Available Not Available Not Available prednison e 5 mg tablet TAKE 4 TABS DAILY X1 WEEK, THEN 3 TABS DAILY X1 WEEK, THEN 2 TABS DAILY X1 WEEK, THEN 1 TAB X1 WEEK 07/26 completed Not Available Not Available Not Available allopurin ol 100 mg tablet TAKE 1 TABLET DAILY active Not Available Not Available No t Available losartan 25 mg tablet 07/26 completed Medicati on ID: [id number] B rand Name: losartan Send Method: E-Prescr ibed Sub s Allowed: subs OK Medic ationGen ericName : losartan Not Available Not Available Not Available indometha naomi 50 mg capsule 07/26 completed Medicati on ID: [id number] B rand Name: indometh acin Sen d Method: E-Prescr ibed Sub s Allowed: subs OK Medic ationGen ericName : indometh acin Not Available Not Available Not Available budesonid e 0.5 mg/2 mL suspensio n for nebulizat ion 2019 active Medicati on ID: [id number] D uration Value: 30 Brand Name: budkimberleeoni de Send Method: E-Prescr ibed Sub s Allowed: subs OK Speci al Instruct ion: use one vial in Neilmed rinse twice daily. 1/2 bottle per nostril. Medicat ionGener icName: budesoni de Not Available Not Available Not Available allopurin ol 300 mg tablet TAKE 1 TABLET BY MOUTH EVERY DAY active Not Available Not Available No t Available methylpre dnisolone 4 mg tablets in a dose pack TAKE 6 TABLETS ON DAY 1 DIRECTED ON PACKAGE AND DECREASE BY 1 TAB EACH DAY FOR A TOTAL OF 6 DAYS 07/26 completed Not Available Not Available Not Available naproxen 500 mg tablet TAKE 1 TABLET BY MOUTH TWICE A DAY NEEDED FOR PAIN 07/26 completed Not Available Not Available Not Available Daily Multi-Vit saleem active Not Available Not Available Not Available Mitigare 0.6 mg capsule TAKE 1 CAPSULE TWICE DAILY active Not Available Not Available No t Available Vitals Date Recorded Body height Body mass index (BMI) Body weight Provider Name and Address Organization Details Last Updated DateTime 07/26/2024 165.1 cm 34.9 kg/m2 15395.4 g ISRRAEL RODRIGUEZ [place] [facility] 07/26/2024 15:44:04 Social History None recorded. Functional Status None recorded. Mental Status None recorded. Family History Nothing Reported. Medical History No medical history recorded. Past Encounters Encounter ID Performer Location Encounter Start Date Encounter Closed Date Diagnosis/Indication Diagnosis SNOMED-CT Code Diagnosis ICD10 Code Diagnosis Note [id number] DEANDRA AGUILERA MD [facility] [address] [place] [address] 07/26/2024 15:33:36 07/26/2024 16:03:51 Snoring 03251090 R06.83 Polyp of nasal cavity 73 5440344 J33.0 Health Concerns Section Related Observation LastModified by Organization Detai ls LastModified Time None Recorded Concern Status LastModified by Organization Details LastModified Time None Recorded Advance Directives Directive None Recorded Payers Insurance Date Sequence Insurance Name Policy Number Policy Azul Covered Member ID Azul Member ID Guarantor Name 07/26/2024 1 [facility] [id number] Martha Giordano [id number] Ciaran Giordano Notes Date Note Type Note Provider Name and Address Organization Details Recorded Time 07/26/2024 text/html snoringin past f ew months the volume has been louderlost about 20 pounds, careful with diet to avoid inflammation from foods and manage goutwaking up early in middle of nighttired in morningwife noted apnea pattern with gasping arousalfollowed in [place] to [facility] with regurgitation 2019 PSG - told it was within normal (results not available) 06/04/2020 Fredis COVINGTON endoscopic polypectomy involving middle turbinatespath - high grade dysplasia PV 06/02/22 leroy Morales nasal endoscopy DEANDRA AGUILERA MD [address] [facility],[place] [address], [place], [address], [place] [facility] 07/26/2024 16:03:24
--- NOTE | 2024-08-01 09:07 | MHC.PC.OV ---
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 Allergies Seasonal Allergies Allergy (Mild, Verified 08/01/24 09:10) congestion Medication List - Last Reconciled 08/01/24 by Tra Gonzales MD allopurinol 450 mg (1.5 x 300 mg) PO DAILY 90 days cetirizine (Zyrtec) 10 mg PO DAILY PRN 90 days colchicine (Mitigare) 0.6 mg PO BID 90 days ferrous sulfate 325 mg orally Every other day; losartan 50 mg PO DAILY 90 days multivitamin 1 tab PO DAILY 90 days prednisone orally; At the onset of a gout flare-up take 3 tabs daily for 3 days then 2 tabs daily for 3 days then 1 tab daily for 3 days then stop Tobacco use date assessed: 08/01/24 Dental Screening Dental Screen Date: 08/01/24 Did you have a dental visit in the last 12 months?: Yes Did you have a dental problem in the last 6 months where you did not have access to dental care?: No Was dental information given to patient?: Patient has dentist HPI annual physical HPI Details 58 y/o male presents for a CPE with f/u labs and health maintenance. Labs drawn 07/25/24. Reviewed labs with pt. WBC 4.5. Ongoing mild anemia, stable. Pt notes he continues taking his iron supplement but does cause him constipation. Fasting glucose of 111. Triglycerides 149. TC 222. LDL 127. HDL 66. PSA 0.52. 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 Current occupational exposures/hazards: No Cognitive needs: No Hearing needs: No Vision needs: No Questionnaire PHQ-9 Over the last 2 weeks, how often have you been bothered by any of the following problems? 1. Little interest or pleasure in doing things: not at all 2. Feeling down, depressed, or hopeless: not at all 3. Trouble falling or staying asleep, or sleeping too much: several days 4. Feeling tired or having little energy: not at all 5. Poor appetite or overeating: not at all 6. Feeling bad about yourself - or that you are a failure or have let yourself or your family down: not at all 7. Trouble concentrating on things, such as reading the newspaper or watching television: not at all 8. Moving or speaking so slowly that other people could have noticed. Or the opposite - being so fidgety or restless that you have been moving around a lot more than usual: not at all 9. Thoughts that you would be better off or of hurting yourself in some way: not at all Total score: 1 Depression Screening Interpretation: Negative Depression Screening Done: Yes 15956 - PHQ-9 Billing: Yes Source: Developed by Drs. Bharath Sky, Ela Mann, Marco Mann and colleagues, with an educational zaid from [employer] Thrive Questionnaire Date Thrive assessed: 08/01/24 I am a: Patient What is your living situation today?: I have a steady place to live Within the past 12 months, did the food you bought not last and you didn't have the money to get more?: Never true Within the past 12 months, did you worry whether your food would run out before you got money to buy more?: Never true Do you have trouble paying for medicines?: No Do you have trouble getting transportation to medical appointments?: No Do you have trouble paying your heating and electricity bill?: No Do you have trouble taking care of your child, family member or friend?: No Do you have trouble with day-to-day activities such as bathing, preparing meals, shopping, managing finances, etc.?: No Are you currently unemployed and looking for a job?: No Are you interested in more education?: No Please select the resources that you would like help with: None THRIVE Score: 0 SHANNON-7 AMB Questionnaire SHANNON-7 Date SHANNON - 7 assessed: 08/01/24 Feeling nervous, anxious, or on edge: 1 = Several days Not being able to stop or control worryin = Not at all Worrying too much about different things: 1 = Several days Trouble relaxin = Not at all Being so restless that it is hard to sit still: 0 = Not at all Becoming easily annoyed or irritable: 0 = Not at all Feeling afraid as if something awful might happen: 0 = Not at all Total SHANNON-7 score (0-4 normal; 5-9 mild; 10-14 moderate; 15-21 severe): 2 Source: Developed by Drs. Bharath Sky, Ela Mann, Marco Mann and colleagues, with an educational zaid from [employer] SHANNON-7 Assessment Billing SHANNON-7 Assessment Tool: SHANNON-7 Assessment 64737 Review of Systems Const Denies chills, Denies fatigue, Denies fever(s), Denies headache(s) and Denies weakness Eyes Denies change in vision ENT Denies dizziness, Denies headache(s), Denies hearing loss, Denies nasal congestion, Denies sinus pain, Denies sinus pressure and Denies sore throat Card Denies chest pain, Denies lightheadedness, Denies dyspnea and Denies other (palpitations) Resp Denies cough, Denies dyspnea and Denies wheezing GI Denies abdominal pain, Denies melena, Denies hematochezia, Denies change in bowel habits, Denies dyspepsia and Denies nausea Denies hematuria and Denies dysuria Musc Denies abnormal gait, Denies myalgias, Denies arthralgias, Denies numbness and Denies tingling Skin/Breast Denies rash, Denies unusual bruising and Denies wounds Neuro Denies abnormal gait, Denies dizziness, Denies headache(s), Denies memory loss, Denies numbness, Denies Sensory deficit (Neuro), Denies tingling and Denies weakness Psych Denies anxiety, Denies depression and Denies memory loss Endo Denies cold intolerance, Denies fatigue, Denies heat intolerance, Denies polydipsia and Denies polyuria Epifanio/Lymph Denies easy bleeding and Denies easy bruising Aller/Immun Denies wheezing Physical exam (Primary Care) Vital Signs: Last Vital Signs Temp 98.2 F 08/01/24 09:13 Pulse 85 08/01/24 09:13 Resp 14 08/01/24 09:13 BP 116/70 08/01/24 09:13 Pulse Ox 97 08/01/24 09:13 Oxygen Delivery Method Room Air 08/01/24 09:13 BMI result Body Mass Index 36.0 Tobacco/Smoking Status: Tobacco use Status Tobacco use date assessed 08/01/24 08/01/24 09:16 Patient Tobacco Use Status Current someday Tobacco 08/01/24 09:16 Tobacco use type Cigar 08/01/24 09:08 e-Cigarette/Vaping Use Never Used 08/01/24 09:08 PHQ-9: PHQ-9 Score PHQ-9: Total score 1 08/01/24 09:38 Depression Screening Interpretation: Negative Thrive Assessment: Date of Thrive Assessment Date Thrive assessed 08/01/24 08/01/24 09:08 Const General: no acute distress, well developed, alert and awake Nutritional Appearance: well nourished Orientation/consciousness: patient oriented x3 HENMT Head: Yes normocephalic and Yes atraumatic Ears: hearing grossly normal bilaterally and TM's normal bilaterally General nose exam: Normal external nose present and Normal nares present Mouth: Normal oral and palatal mucosa present and moist mucous membranes Teeth and gingiva: dentition normal Throat: Yes posterior oropharynx normal Eyes General: appearance normal, both eyes and all related structures Pupils: Equal, round and reactive pupils present and Pupil accommodation reflex normal EOM: EOMs intact bilaterally Neck Neck: Yes normal visual inspection, Yes no lymphadenopathy and Yes trachea midline Thyroid: Thyroid normal Carotids: no bruits Lymphatic: no lymphadenopathy noted Chest Chest palpation & inspection: normal inspection of the chest Resp Effort & Inspection: normal respiratory effort Auscultation: clear to auscultation bilaterally Cardio Rate: regular rate Rhythm: regular rhythm Heart sounds: S1 normal heart sound present, S2 normal heart sound present, no gallops, no murmurs and no rubs Bruits: no abdominal aortic bruits and no carotid bruits GI Palpation (GI): No Abdominal aortic bruit present, Soft to palpation, nontender, No hepatosplenomegaly present and No Rebound tenderness present Auscultation: normal bowel sounds General: Yes no CVA tenderness Back/Spine/Pelvis Back: no CVA tenderness Cervical Spine: cervical ROM normal and No Cervical spine tenderness Thoracic/Lumbar Spine: thoraco-lumbar ROM normal, No pain with thoraco-lumbar ROM, No thoracic spinal tenderness and No lumbar spinal tenderness Skin Lesions: no lesions Rashes: no rashes Trauma: no lacerations or abrasions Wounds: no wounds Nails: normal Neuro General: patient oriented x3 Cranial nerves: Yes Equal, round and reactive pupils present Cognition (Neuro): normal cognition Gait exam (Neuro): Normal gait present Motor exam (neuro): 5/5 motor strength present throughout Sensory Exam: No Sensory deficit (Neuro) Deep tendon reflexes (DTR's): Right patellar reflex intensity grade: 2+ and Left patellar reflex intensity grade: 2+ Extrem General: Yes normal to inspection and No edema Psych Appearance: grossly normal Affect: normal affect Attitude: cooperative Thought process: Normal thought process present Coding Level of Care Code Est Pt Prev Care 40-64y(12488) Diagnoses Adult general medical exam Z00.00 Mild anemia D64.9 Pre-diabetes R73.03 Tophaceous gout M1A.9XX1 Hypertension I10 Screening for colon cancer Z12.11 Screening for prostate cancer Z12.5 Additional Codes SHANNON-7 Assessment Billing - SHANNON-7 Assessment Tool: SHANNON-7 Assessment 77576 ([id number]) PHQ-9 - 15233 - PHQ-9 Billing: Yes ([id number]) Assessment & Plan Assessment & Plan (1) Adult general medical exam: Code(s): Z00.00 - Encounter for general adult medical examination without abnormal findings Category: Medical Plan: 58-year-old?male?presents?for?complete?physical?exam Encouraged?healthy?diet?with?active?lifestyle?and?plenty?of?exercise (2) Mild anemia: Code(s): D64.9 - Anemia, unspecified Category: Medical Plan: Mild?stable?anemia On?iron?which?he?will?continue. Hydrate?well Will?continue?to?follow (3) Pre-diabetes: Code(s): R73.03 - Prediabetes Category: Medical Plan: Will?follow-up?on?fasting?blood?sugar?and?A1c?at?his?next?visit. 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 Then patient's self DC meds Multiple gout flare-ups in 2023. Allopurinol restarted Code(s): M1A.9XX1 - Chronic gout, unspecified, with tophus (tophi) Category: Medical Plan: Followed?by?rheumatology?and?he?is?on?allopurinol?and?colchicine Has?an?upcoming?appointment?with?rheumatology?on? (5) Hypertension: Code(s): I10 - Essential (primary) hypertension Category: Medical Plan: Blood?pressure?is?controlled.??Goal?is?less?than? Continue?current?medication (6) Screening for colon cancer: Code(s): Z12.11 - Encounter for screening for malignant neoplasm of colon Category: Medical Plan: Last?colonoscopy?in?2019?recommended?follow-up?in?10?years;?2028 Up-to-date (7) Screening for prostate cancer: Code(s): Z12.5 - Encounter for screening for malignant neoplasm of prostate Category: Medical Plan: PSA?is?within?normal?range Will?continue?annual?screening Medications: Refilled losartan 50 mg PO DAILY 90 tabs 2RF 90 days D50.9 - Iron deficiency anemia, unspecified
[2024-08-01 09:13] VITALS: BP 116/70; PULSE 85; RESP 14; TEMP 36.8; O2SAT 97; BMI 36.0
== END 2024-08-01 09:56 | disposition home or self-care (01) ==
LOC: HO.HMCFM 08:50
PROVIDERS: PCP Family Medicine; Visit Provider Family Medicine
DX: Z00.00 Encounter for general adult medical examination without abnormal findings (principal); D64.9 Anemia, unspecified; R73.03 Prediabetes; M1A.9XX1 Chronic gout, unspecified, with tophus (tophi); I10 Essential (primary) hypertension; Z12.11 Encounter for screening for malignant neoplasm of colon; Z12.5 Encounter for screening for malignant neoplasm of prostate

== ENCOUNTER → 2024-08-01 08:49 | Outpatient (BNVA) | payer BC, SELFPAY | PROVIDERS: PCP Family Medicine; Visit Provider Family Medicine | DX: Z00.00 Encounter for general adult medical examination without abnormal findings (principal); D64.9 Anemia, unspecified; R73.03 Prediabetes; M1A.9XX1 Chronic gout, unspecified, with tophus (tophi); I10 Essential (primary) hypertension; Z79.899 Other long term (current) drug therapy; Z13.31 Encounter for screening for depression; Z13.30 Encounter for screening examination for mental health and behavioral disorders, unspecified | CPT/HCPCS: 96127 ==

== ENCOUNTER 2024-08-18 07:35 | Outpatient (AMB) | payer BC, SELFPAY ==
--- OUTSIDE RECORDS SUMMARY | 2024-08-18 07:38 | XMS_ITS | Data Portability ---
Author Organization [place] [facility], Allergy Address [address] [address] Care Team Providers Care Certified Pharmacy Technician Name Role Phone SHOAIB DANIELSON Primary Care Provider Assessment Encounter Date Assessment Date Assessment LastModified [...] any benefit from trial of oral appliance [id number] . He has lost weight with dietary [...] Lab None recorded. Referral None recorded. Procedures polysomno graphy, diagnosti c (PROC) 2024 025 [facility], [address] [place], [address], 09:46:44 Surgeries None recorded. Imaging None recorded. Medication Orders None recorded. Patient TargetsNo targets recorded. Patient InstructionsNo instructions recorded. Reason for Referral None Reported. 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 5 15:56:43 Problem Notes None recorded. Procedures Surgical History Date Name Laterality Status Provider Name and Address Organization Details Recorded Time 07/26/2024 NasalEndos copy_DP completed DEANDRA AGUILERA MD [address] [place] [address], [place], [address], [facility] 07/26/2024 15:56:31 Imaging Results None recorded. [...] mg tablet 07/26 completed Medicati on ID: [id number] B rand Name: losartan Send Method: E-Prescr ibed Sub s Allowed: subs OK Medic ationGen ericName : losartan Not Available Not Available Not Available indometha naomi 50 mg capsule 07/26 completed Medicati on ID: [id number] B rand Name: indometh acin Sen d Method: E-Prescr ibed Sub s Allowed: subs OK Medic ationGen ericName : indometh acin Not Available Not Available Not Available budesonid e 0.5 mg/2 mL suspensio n for nebulizat ion 2019 active Medicati on ID: [id number] D uration Value: 30 Brand Name: budesoni de Send Method: E-Prescr ibed Sub s [...] Updated DateTime 07/26/2024 165.1 cm 34.9 kg/m2 80904.[address] [facility] 07/26/2024 15:44:04 Social History None recorded. Functional Status None recorded. Mental Status None recorded. Family History Nothing Reported. Medical History No medical history recorded. Past Encounters Encounter ID Performer Location Encounter Start Date Encounter Closed Date Diagnosis/Indication Diagnosis SNOMED-CT Code Diagnosis ICD10 Code Diagnosis Note [id number] DEANDRA AGUILERA MD [facility] [address] [place] [address] 07/26/2024 15:33:36 07/26/2024 16:03:51 Snoring 35964748 R06.83 Polyp of nasal cavity 73 1619976 J33.0 Health Concerns Section Related Observation LastModified by Organization Detai ls LastModified Time None Recorded Concern Status LastModified by Organization Details LastModified Time None Recorded Advance Directives Directive None Recorded Payers Insurance Date Sequence Insurance Name Policy Number Policy Azul Covered Member ID Azul Member ID Guarantor Name 07/26/2024 1 [facility] [id number] Martha Giordano [id number] Ciaran Giordano Notes Date Note Type Note Provider Name and Address Organization Details Recorded Time 07/26/2024 text/html snoringin past f ew months the volume has been louderlost about 20 pounds, careful with diet to avoid inflammation from foods and manage goutwaking up early in middle of nighttired in morningwife noted apnea pattern with gasping arousalfollowed in [place] to [place] with regurgitation 2019 PSG - told it was within normal (results not available) 06/04/2020 Fredis COVINGTON 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 [address], [place], [address], [place] - [facility] 07/26/2024 16:03:24
--- NOTE | 2024-08-18 07:48 | MHC.OFFVIS ---
Vital Signs 08/18/24 07:57 Height 5 ft 5 in Weight 215 lb 9.793 oz BMI 35.9 BP 122/84 Blood Pressure Location Lt brachial Position Sitting Pulse 85 Pulse Source Pulse Oximeter Pulse Oximetry (%) 97 Oxygen Delivery Method Room Air Intake Visit Reasons: Gout Intake Note: Patient presents for Gout follow up. Allergies Seasonal Allergies Allergy (Mild, Verified 08/18/24 07:55) congestion Medication List - Last Reconciled 08/18/24 by Alicia Bassett MD allopurinol 450 mg (1.5 x 300 mg) PO DAILY 90 days cetirizine (Zyrtec) 10 mg PO DAILY PRN 90 days colchicine (Mitigare) 0.6 mg PO BID 90 days ferrous sulfate 325 mg orally Every other day; losartan 50 mg PO DAILY 90 days multivitamin 1 tab PO DAILY 90 days prednisone orally; At the onset of a gout flare-up take 3 tabs daily for 3 days then 2 tabs daily for 3 days then 1 tab daily for 3 days then stop HPI Comments Details: Patient is a 58-year-old male hypertension, chronic microcytic anemia secondary to thalassemia and 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 At that time he was following up for his tophaceous gout in remission. 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 He [place] that [place]. He was having gout flare-ups affecting his feet. He was started on allopurinol 100 mg daily and colchicine with resolution of gout. He states that he self-discontinued his medications as he was feeling well. Earlier this year he started having gout flare-ups affecting his left elbow, his left hand followed by the his right hand as well as his ankles. Get prednisone tapers from his PCP with improvement. He was restarted on allopurinol and it was increased to 200 mg daily 1 or 2 months ago. States that the prednisone helps but he still has pain and swelling in his left hand, left ankle today and right 2nd toe. He denies history of kidney stones. 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 Current occupational exposures/hazards: No Cognitive needs: No Hearing needs: No Vision needs: No Review of Systems Const Details: Review of Systems Constitutional: Denies fever, chills, weight loss ENT: Denies vision changes, eye pain or eye redness, dental caries, dry mouth GI: Denies nausea, vomiting, diarrhea, abdominal pain, change in BM Pulm: Denies SOB, ESCOBAR, hemoptysis, wheezing Cards: Denies chest pain, palpitations Skin: Denies Raynaud's, rash, nail changes, photosensitivity, WEIGHT TESTER: Denies headaches, weakness, paresthesias, recurrent falls MSK: as per HPI All other systems reviewed and are unremarkable except noted above Physical Exam Vital Signs: Last Vital Signs Pulse 85 08/18/24 07:57 BP 122/84 08/18/24 07:57 Pulse Ox 97 08/18/24 07:57 Oxygen Delivery Method Room Air 08/18/24 07:57 BMI result Body Mass Index 35.9 Vital signs reviewed Physical Examination CONSTITUITIONAL Patient alert and cooperative. Well appearing and in no apparent painful distress HEENT Conjunctiva and sclera clear. ?Pupils equal round and reactive to light. ?No lymphadenopathy. ? CHEST/RESPIRATORY SYSTEM Normal respiratory effort and able to speak in complete sentences. ?Clear to auscultation bilaterally. ?No crackles, rales, rhonchi, wheezes heard. CARDIAC SYSTEM Regular rate and rhythm. ?S1 and S2 heard no murmurs. ?Radial pulses intact bilaterally MSK Hands: ?Good rrt strength bilaterally. No deformities noted. ?No synovitis noted to the MCPs, PIPs or DIPs. ?No tenderness to palpation of these joints. Scattered Heberden nodes noted Wrists: ?Full range of motion at the wrists without pain. ?No tenderness to palpation or synovitis noted to the wrists. Elbows: Full range of motion without pain. No tenderness, weakness, swelling, increased warmth or erythema. Bursa noted to the left elbow with small tophi - improving Shoulders: Full range of motion without pain. No tenderness, weakness, swelling, increased warmth or erythema. Knees: ?Full range of motion. ?No tenderness, swelling, increased warmth or erythema.?Crepitations felt bilaterally Ankles: Full range of motion. ?No tenderness, swelling, increased warmth or erythema.? Feet: ?Negative squeeze test. ?No tenderness to palpation or swelling of the MTPs. Tender points:?No tenderness to palpation of the bilateral trapezius, supraspinatus, greater trochanters, anterior costochondral junctions, bilateral gluteal areas, bilateral suboccipital muscle insertions SKIN Skin intact without rashes. Results Reviewed Results Reviewed: Laboratory Tests 05/02/24 07/25/24 08:50 09:13 WBC 4.5 L RBC 5.81 H Hgb 11.4 L Hct 36.4 L Plt Count 157 L ESR 2 Sodium 141 Potassium 4.2 Chloride 107 Carbon Dioxide 26 BUN 15 Creatinine 0.76 Uric Acid 5.2 4.9 AST 26 ALT 33 Alkaline Phosphatase 57 C-Reactive Protein < 0.10 Assessment & Plan Assessment & Plan (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 Then patient's self DC meds Multiple gout flare-ups in 2023. Allopurinol restarted Code(s): M1A.9XX1 - Chronic gout, unspecified, with tophus (tophi) Category: Medical Plan: #Chronic Tophaceous gout Patient is a 58-year-old male with chronic tophaceous gout currently in remission. Doing well on allopurinol with no recurrence of flares. Colchicine for prophylaxis. Uric acid goal for this patient with tophaceous gout is less than 5. Uric acid today 4.9. UA at goal. Plan - UA at goal, UA goal < 5 - Allopurinol to 450mg daily - Continue colchicine 0.6mg bid - Prednisone taper for flares - RTC 6 months - Labs before visit: CBC, CMP, ESR, CRP, UA (2) Pancytopenia: Code(s): D61.818 - Other pancytopenia Plan: #Pancytopenia Patient with known hemophilia with now pancytopenia. This is new. Discuss this with the patient and told him to monitor his white count and platelets if things get worse he should follow up with a desizing machine offbearer (3) Encounter for monitoring allopurinol therapy: Code(s): Z51.81 - Encounter for therapeutic drug level monitoring; Z79.899 - Other dedicated intermodal truck driver (current) drug therapy Plan: #Long-term Current Use of Allopurinol Risks and benefits of allopurinol discussed with patient Benefits include decreased gout flares, remission of gout and reduction of tophi Risks include allopurinol hypersensitivity syndrome which is a severe cutaneous adverse reaction associated with allopurinol use particularly in patients who are HLA B*5801 positive, increased transaminases, GI upset including diarrhea, nausea and vomiting, and other dermatologic manifestations. (4) On colchicine therapy: Code(s): Z79.899 - Other dedicated intermodal truck driver (current) drug therapy Plan: #Long-term use of colchicine Risks and benefits of long-term colchicine for the management of this patient's gout discussed with patient. Benefits include reduced occurrence of flares while we titrate and regulate his uric acid on allopurinol and other uric acid lowering medications. ? Risks include worsening myalgias especially if on statins and GI upset including diarrhea Plan I spent 25 minutes reviewing the record and labs, taking a history, examining the patient, discussing the treatment plan, ordering diagnostic work up and documenting in the medical record Orders: Orders Complete Blood Count Auto Diff 6 Months M10.9 - Gout, unspecified Comprehensive Met. Panel 6 Months M10.9 - Gout, unspecified C Reactive Protein 6 Months M10.9 - Gout, unspecified Erythrocyte Sedimentation Rate 6 Months M10.9 - Gout, unspecified Uric Acid 6 Months M10.9 - Gout, unspecified Medications: Refilled allopurinol 450 mg (1.5 x 300 mg) PO DAILY 135 tabs 1RF 90 days M1A.9XX1 - Chronic gout, unspecified, with tophus (tophi) colchicine (Mitigare) 0.6 mg PO BID 180 caps 1RF 90 days M1A.9XX1 - Chronic gout, unspecified, with tophus (tophi) Coding Level of Care Code Est Pt Level 3 (22211) Complex EM visit Add On G2211 Diagnoses Tophaceous gout M1A.9XX1 Pancytopenia D61.818 Encounter for monitoring allopurinol therapy Z51.81; Z79.899 On colchicine therapy Z79.899
[2024-08-18 07:57] VITALS: BP 122/84; PULSE 85; O2SAT 97; BMI 35.9
== END 2024-08-18 08:39 | disposition home or self-care (01) ==
LOC: HO.RHE 07:35
PROVIDERS: PCP Family Medicine; Visit Provider Student in an Organized Health Care Education/Training Program
DX: M1A.9XX1 Chronic gout, unspecified, with tophus (tophi) (principal); D61.818 Other pancytopenia; Z51.81 Encounter for therapeutic drug level monitoring; Z79.899 Other long term (current) drug therapy
CPT/HCPCS: 99213

== ENCOUNTER 2024-10-11 08:41 | Outpatient (REF) | payer BC, SELFPAY ==
--- OUTSIDE RECORDS SUMMARY | 2024-10-11 09:27 | XMS_ITS | Encounter Summary ---
Author Organization [facility] Address [address] [place] [address] Phone Care Team Providers Care Monument Setter Name Role Phone Tra Gonzales MD Primary Care Provider Encounter Details Date Type Department Care Team (Late st Contact Info) Description 11/05/2021 Procedure Pass [facility] [place] [address] [place] [address] Social History Tobacco Use Types Packs/Day Years Used Date Smoking Tobacco: Light Smoker Cigars Smokeless Tobacco: Never Comments:smokes Cigars every once in a while Alcohol Use Standard Drinks/Week Comments Yes 0 (1 standard drink = 0.6 oz pur e alcohol) rare Sex and Gender Information Value Date Recorded Sex Assigned at Not on file Legal Sex Male 2:13 PM EST Gender Identity Not on file Sexual Orientation Not on file documented as of this encounter Plan of Treatment Upcoming Encounters Date Type Department Care Team (Late st Contact Info) Description 01/19/2024 Procedure Pass [facility] [place] [facility] [address] [place] [address] 01/24/2025 9:30 AM EST Appointment [facility] [address] [place] [address] Zoya Son CNP [address] [place] [address] 01/24/2025 11:00 AM EST Office Visit [facility] Cardi[place] [address] [facility], 5th Floor, [address] [place] [address] Zoya Son, STATISTICAL MODELER [address] [place] [address] [email or web address] documented as of this encounter Visit Diagnoses Not on filedocumented in this encounter Care Teams Monument Setter Relationship Specialty Start Date End Date Tra Gonzales MD [address] [place] [id number] PCP - General Family Medicine 11/05/21 documented as of this encounter Additional Source Comments The information contained in this document represents components of the legal health record. It is not the complete legal health record.[facility]
--- OUTSIDE RECORDS SUMMARY | 2024-10-11 09:27 | XMS_ITS | Clinical Summary ---
Author Organization [facility] Facility Address [address] [place] [address] Care Team Providers Care Emergency Service Restorer Name Role Phone Vee Chase MD Primary Care Provider [phone] Social History Tobacco Use Types Packs/Day Years [...] Pneumococcal Vaccine: 50+ Ye ars (1 of 1 - PCV) 08/06/2013 Influenza Vaccine (#1) 2024 Hepatitis B Vaccine Aged Out No longe r eligible based on patient's age to complete this topic Insurance [facility] Care Teams Emergency Service Restorer Relationship Specialty Start Date End Date O'Bautista, Vee M, MD [address] [place] [address] PCP - General Internal Medicine 01/22/21
--- OUTSIDE RECORDS SUMMARY | 2024-10-11 09:27 | XMS_ITS ---
Author Name [facility] Organization Unknown Care Team Organization Name Specialty Phone Email Start Date End Da te [facility] Primary Care 12/31/2021 10/12/19 24
[2024-10-11 11:30] LABS: Hemoglobin A1C 116.6056 umol/L; Total Hemoglobin (HGBA1C) 3060.4687 umol/L
[2024-10-11 11:32] LABS: Alanine Aminotransferase 33 U/L (0-40); Albumin Level 4.7 g/dL (3.5-5.0); Alkaline Phosphatase 60 U/L (39-117); Anion Gap 11 (12-20); Aspartate Amino Transferase 31 U/L (5-37); Blood Urea Nitrogen 13 mg/dL (9-16); Calcium 9.4 mg/dL (8.4-10.2); Carbon Dioxide 27 mmol/L (22-29); Chloride 106 mmol/L (96-108); Cholesterol 219 mg/dL (<200); Estimated Glomerular Filt Rate > 60; HDL Cholesterol 71 mg/dL (>40); Potassium 4.2 mmol/L (3.3-5.1); Sodium 140 mmol/L (135-145); Total Protein 6.8 g/dL (6.5-8.0); Triglycerides 74 mg/dL (<150)
== END 2024-10-11 08:42 | disposition home or self-care (01) ==
LOC: HO.WFDLDS 08:41
PROVIDERS: Visit Provider Family Medicine
DX: Z00.00 Encounter for general adult medical examination without abnormal findings (principal); E78.00 Pure hypercholesterolemia, unspecified; R73.01 Impaired fasting glucose; R73.03 Prediabetes
CPT/HCPCS: 36415; 80053; 80061; 83036

== ENCOUNTER 2024-10-20 09:29 | Outpatient (AMB) | payer BC, SELFPAY ==
--- NOTE | 2024-10-20 09:33 | A.OFFPC_ITS ---
Vital Signs 10/20/24 09:37 Height 5 ft 5 in Weight 218 lb 4 oz BMI 36.3 BP 120/77 Blood Pressure Location Lt brachial Position Sitting Respiration 16 Pulse 74 Pulse Source Pulse Oximeter Temp 97.8 F Temp Source Oral Pulse Oximetry (%) 98 Oxygen Delivery Method Room Air Intake Visit Reasons: HTN Intake Note: patient here for follow up on hypertension, pre diabetes and hyperlipidemia Java Development Manager Required: No Allergies Seasonal Allergies Allergy (Mild, Verified 10/20/24 09:36) congestion Tobacco use date assessed: 10/20/24 Dental Screening Dental Screen Date: 10/20/24 Did you have a dental visit in the last 12 months?: Yes Did you have a dental problem in the last 6 months where you did not have access to dental care?: No Was dental information given to patient?: Patient has dentist HPI HTN HPI Details Patient presents to follow-up hypertension, pre diabetes and hyperlipidemia PFSH Surgical History H/O right inguinal hernia repair Family History (Updated 08/18/24 @ 07:56 by ANGELICA Nieves) Paternal Uncle Gout Social History Housing: House Patient Tobacco Use Status: Current someday Tobacco user Tobacco use type: Cigar e-Cigarette/Vaping Use: Never Used Second Hand Smoke Exposure: No Advance Directives Date on File: 09/04/22 service: No Current occupational status: employed 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 Current occupational exposures/hazards: No Cognitive needs: No Hearing needs: No Vision needs: No Questionnaire Thrive Questionnaire Date Thrive assessed: 08/01/24 I am a: Patient What is your living situation today?: I have a steady place to live Within the past 12 months, did the food you bought not last and you didn't have the money to get more?: Never true Within the past 12 months, did you worry whether your food would run out before you got money to buy more?: Never true Do you have trouble paying for medicines?: No Do you have trouble getting transportation to medical appointments?: No Do you have trouble paying your heating and electricity bill?: No Do you have trouble taking care of your child, family member or friend?: No Do you have trouble with day-to-day activities such as bathing, preparing meals, shopping, managing finances, etc.?: No Are you currently unemployed and looking for a job?: No Are you interested in more education?: No Please select the resources that you would like help with: None Currently or been in a relationship where the following occur: No concerns reported THRIVE Score: 0 AUDIT C Alcohol Use Questionnaire (AUDIT-C) 1. How often do you have a drink containing alcohol?: 2-4 times a month 2. How many drinks containing alcohol do you have on a typical day when you are drinking?: 1 or 2 3. How often do you have six or more drinks on one occasion?: Less than monthly Total Score: 3 SHANNON-7 AMB Questionnaire SHANNON-7 Date SHANNON - 7 assessed: 08/01/24 Feeling nervous, anxious, or on edge: 1 = Several days Not being able to stop or control worryin = Not at all Worrying too much about different things: 1 = Several days Trouble relaxin = Not at all Being so restless that it is hard to sit still: 0 = Not at all Becoming easily annoyed or irritable: 0 = Not at all Feeling afraid as if something awful might happen: 0 = Not at all Total SHANNON-7 score (0-4 normal; 5-9 mild; 10-14 moderate; 15-21 severe): 2 Source: Developed by Drs. Bharath Sky, Ela Mann, Marco Mann and colleagues, with an educational zaid from Attender. Review of Systems Const Denies chills, Denies fatigue, Denies fever(s), Denies headache(s) and Denies weakness ENT Denies dizziness and Denies headache(s) Card Denies chest pain, Denies lightheadedness, Denies dyspnea and Denies other (Palpitations) Resp Denies cough, Denies dyspnea, Denies wheezing and Denies other ( shortness of breath) Musc Denies numbness and Denies tingling Neuro Denies dizziness, Denies headache(s), Denies numbness, Denies tingling, Denies paresthesias and Denies weakness Psych Denies anxiety and Denies depression Endo Denies fatigue Aller/Immun Denies wheezing Physical exam (Primary Care) Vital Signs: Last Vital Signs Temp 97.8 F 08/28/25 09:37 Pulse 74 10/20/24 09:37 Resp 16 10/20/24 09:37 BP 120/77 10/20/24 09:37 Pulse Ox 98 10/20/24 09:37 Oxygen Delivery Method Room Air 10/20/24 09:37 BMI result Body Mass Index 36.3 Tobacco/Smoking Status: Tobacco use Status Tobacco use date assessed 10/20/24 10/20/24 09:41 Patient Tobacco Use Status Current someday Tobacco 10/20/24 09:41 Tobacco use type Cigar 10/20/24 09:41 e-Cigarette/Vaping Use Never Used 10/20/24 09:41 Thrive Assessment: Date of Thrive Assessment Date Thrive assessed 08/01/24 10/20/24 09:41 Currently or been in a relationship where the following occur: No concerns reported Const General: no acute distress and well developed Nutritional Appearance: well nourished Orientation/consciousness: patient oriented x3 HENMT Head: Yes normocephalic and Yes atraumatic Eyes General: appearance normal, both eyes and all related structures Pupils: Equal, round and reactive pupils present EOM: EOMs intact bilaterally Resp Effort & Inspection: normal respiratory effort Auscultation: clear to auscultation bilaterally Cardio Rate: regular rate Rhythm: regular rhythm Heart sounds: S1 normal heart sound present, S2 normal heart sound present, no gallops, no murmurs and no rubs Neuro General: patient oriented x3 and gait normal Cranial nerves: Yes Equal, round and reactive pupils present Psych Affect: normal affect Coding Level of Care Code Est Pt Level 4 (88043) Diagnoses Hypertension I10 Pre-diabetes R73.03 Elevated LDL cholesterol level E78.00 Sleep apnea G47.30 Tophaceous gout M1A.9XX1 Assessment & Plan Assessment & Plan (1) Hypertension: Code(s): I10 - Essential (primary) hypertension Category: Medical Plan: Blood pressure is controlled. Goal is less than 140/90 Continue current medications Work on weight loss Watch salt and sodium (2) Pre-diabetes: Code(s): R73.03 - Prediabetes Category: Medical Plan: A1c 5.6%. Heading in the right direction Keep working at a diet lower in sugars and starches as well as weight loss and exercise (3) Elevated LDL cholesterol level: Code(s): E78.00 - Pure hypercholesterolemia, unspecified Category: Medical Plan: LDL cholesterol is too high. He will work at a diet lower in saturated fats and cholesterol as well as exercise and weight loss We discussed that if LDL is the same or higher with next check, we may want to consider medication. (4) Sleep apnea: Code(s): G47.30 - Sleep apnea, unspecified Category: Medical Plan: Started CPAP 3 weeks ago Keep working at this and follow-up with your sleep medicine provider (5) Tophaceous gout: Comment: onset treated with allopurinol + colchicine. Then patient's self DC meds Multiple gout flare-ups in 2023. Allopurinol restarted Code(s): M1A.9XX1 - Chronic gout, unspecified, with tophus (tophi) Category: Medical Plan: Now followed by rheumatology and taking colchicine and allopurinol as prescribed. Patient notes improvements Continue medication Avoid trigger foods Encouraged weight loss Orders: Orders Hemoglobin A1c Today R73.01 - Impaired fasting glucose, R73.03 - Prediabetes Complete Blood Count Auto Diff Today D64.9 - Anemia, unspecified, Z00.00 - Encounter for general adult medical examination without abnormal findings LDL Cholesterol Direct Today E78.00 - Pure hypercholesterolemia, unspecified, E78.5 - Hyperlipidemia, unspecified Comprehensive [place]. Panel Fast Today E78.00 - Pure hypercholesterolemia, unspecified, Z00.00 - Encounter for general adult medical examination without abnormal findings
[2024-10-20 09:37] VITALS: BP 120/77; PULSE 74; RESP 16; TEMP 36.6; O2SAT 98; BMI 36.3
--- OUTSIDE RECORDS SUMMARY | 2024-10-20 10:33 | XMS_ITS | Clinical Summary ---
Author Organization [facility] Facility Address [address] [place] [address] Care Team Providers Care Presidential Support Specialist Name Role Phone Vee Chase MD Primary Care Provider [phone] Social History Tobacco Use Types Packs/Day Years [...] patient's age to complete this topic Insurance [facility] Care Teams Presidential Support Specialist Relationship Specialty Start Date End Date O'Bautista, Vee M, MD [address] [place] [address] PCP - General Internal Medicine 01/22/21
--- OUTSIDE RECORDS SUMMARY | 2024-10-20 10:33 | XMS_ITS | Encounter Summary ---
Author Organization [facility] Address [address] [place] [address] Phone Care Team Providers Care Mannequin Mold Maker Name Role Phone Vee Escoto MD Primary Care Provider Pardeep Howard MD Primary Care Provider Tra Gonzales MD Primary Care Provider Encounter Details Date Type Department Care Team (Late st Contact Info) Description 09/30/2020 Procedure Pass [facility] [address] [place] [address] Social History Tobacco Use Types Packs/Day Years [...] st Contact Info) Description 01/19/2024 Procedure Pass [facility] [address] [place] [address] 01/24/2025 9:30 AM EST Appointment [facility] [address] [place] [address] Zoya Son, FOOD EQUIPMENT SERVICE TECHNICIAN [address] [place] [address] [email or web address] 01/24/2025 11:00 AM EST Office Visit [facility] [place] [address] [facility], 5th Floor, [address] [place] [address] Zoya Son, FOOD EQUIPMENT SERVICE TECHNICIAN [address] [place] [address] [email or web address] documented as of this encounter Visit Diagnoses Not on filedocumented in this encounter Care Teams Mannequin Mold Maker Relationship Specialty Start Date End Date Vee Escoto MD PCP - General Internal Medicine 02/09/17 10/18/20 Pardeep Howard MD [address] [place] [address] PCP - General Internal Medicine 10/19/20 11/04/21 Tra Gonzales MD [address] [place] [address] PCP - General Family Medicine 11/05/21 documented as of this encounter Additional Source Comments The information contained in this document represents components of the legal health record. It is not the complete legal health record.[facility]
--- OUTSIDE RECORDS SUMMARY | 2024-10-20 10:33 | XMS_ITS | Encounter Summary ---
Author Organization [facility] Address [address] [place] [address] [place] [address] Phone Care Team Providers Care Tie Inspector Name Role Phone Tra Gonzales MD Primary Care Provider Encounter Details Date Type Department Care Team (Late st Contact Info) Description 11/11/2022 Procedure Pass [facility] [address] [place] [address] Social History Tobacco Use Types Packs/Day Years Used Date Smoking Tobacco: Light Smoker Cigars Smokeless Tobacco: Never Comments:smokes Cigars every once in a while Alcohol Use Standard Drinks/Week Comments Yes 0 (1 standard drink = 0.6 oz pur e alcohol) rare Education Answer Date Recorded Are you interested in more education? Not on rachana e 06/20/2022 Are you concerned about learning? Not on file 06/20/2022 No 06/20/2022 No 06/20/2022 Digital Access Answer Date Recorded No 07/22/2022 No 07/22/2022 Reliable internet access at home? Not on file 07/22/2022 Device with a working camera? Not on file Sex and Gender Information Value Date Recorded Sex Assigned at Not on file Legal Sex Male 2:13 PM EST Gender Identity Not on file Sexual Orientation Not on file documented as of this encounter Plan of Treatment Upcoming Encounters Date Type Department Care Team (Late st Contact Info) Description 01/19/2024 Procedure Pass [facility] [address] [place] [address] 01/24/2025 9:30 AM EST Appointment [facility] [address] [place] [address] Zoya Son CNP [address] [place] [address] [email or web address] 01/24/2025 11:00 AM EST Office Visit [facility]ovascular Medicine [address] [facility], 5th Floor, [address] [place] [address] Zoya Son CNP [address] [place] [address] [email or web address] documented as of this encounter Visit Diagnoses Not on filedocumented in this encounter Care Teams Tie Inspector Relationship Specialty Start Date End Date Tra Gonzales MD [address] [place] [address] PCP - General Family Medicine 11/05/21 documented as of this encounter Additional Source Comments The information contained in this document represents components of the legal health record. It is not the complete legal health record.[facility]
--- OUTSIDE RECORDS SUMMARY | 2024-10-20 10:33 | XMS_ITS | Clinical Summary ---
Author Organization [facility] Address [address] [address] Phone Care Team Providers Care Resource Efficiency Manager Name Role Phone Tra Gonzales MD Primary Care Provider Allergies No known active allergies Medications MULTIVITAMIN ORAL Take by mouth daily. Active cetirizine (ZYRTEC) 10 MG tablet Take 10 mg by mouth daily as needed for allergies. Active losartan (COZAAR) 50 MG tablet Take 50 mg by mouth daily. Active allopurinol (ZYLOPRIM) 100 MG tablet Take 2 tablets by mouth every morning. 01/13/2024 Active MITIGARE 0.6 mg capsule Take 1 capsule by mouth 2 (two) times a day. 01/15/2024 Active FERROUS SULFATE ORAL Take by mouth. Active Active Problems Problem Noted Date Diagnosed Date Mitral valve prolapse 06/16/2018 Non-rheumatic mitral regurgitation 06/16/2018 Borderline hypertension 06/16/2018 Family History Medical History Relation Comments Hearing loss Unspecified Relation Status Comments Unspecified Social History Tobacco Use Types Packs/Day Years Used Date Smoking Tobacco: Light Smoker Cigars Smokeless Tobacco: Never Tobacco Cessation:Ready to Q uit: Not Asked; Counseling Given: Not Answered Comments:smokes Cigars every once in a while [...] on file Sexual Orientation Not on file Last Filed Vital Signs Vital Sign Reading Time Taken Comments Blood Pressure 127/85 01/19/2024 9:31 AM EST Pulse 75 01/19/2024 9:31 AM EST Temperature - - Respiratory Rate 16 06/15/2018 3:16 PM EDT Oxygen Saturation - - Inhaled Oxygen Concentration - - Weight 91.2 kg (201 lb) 01/19/2024 9:31 AM EST Height 165.1 cm (5' 5 ) 01/19/2024 8:00 AM EST Body Mass Index 33.45 01/19/2024 8:00 AM EST Plan of Treatment Upcoming Encounters Date Type Department Care Team (Late st Contact Info) Description 01/19/2024 Procedure Pass [facility] Card[facility] US [address] [place] [address] 01/24/2025 9:30 AM EST Appointment [facility] Cardiac US [address] [place] [address] Zoya Son CONSTRUCTION IRONWORKER HELPER [address] [place] [address] 01/24/2025 11:00 AM EST Office Visit [facility] Cardiovascular Medicine 32 [facility], 5th Floor, [address] [place] [address] Zoya Son CONSTRUCTION IRONWORKER HELPER [address] [place] [address] [email or web address] Health Maintenance Due Date Last Done Comments CREATININE LEVEL 1963 LIPID PANEL 1963 POTASSIUM LEVEL 1963 DEPRESSION SCREENING 1975 HEPATITIS C SCREENING 08/06/1981 HIV ONE-TIME SCREENING (18-6 5 YEARS) 08/06/1981 PNEUMOCOCCAL VACCINES (50+ years) (1 of 2 - PCV) 08/06/1982 SCREENING FOR DIABETES 08/06/1998 COLOGUARD 08/06/2008 COLONOSCOPY 08/06/2008 COLORECTAL CANCER SCREENING 08/06/2008 FIT TEST 08/06/2008 FOBT 08/06/2008 SIGMOIDOSCOPY 08/06/2008 VIRTUAL COLONOSCOPY 08/06/2008 ZOSTER VACCINES (1 of 2) 08/06/2013 COVID-19 VACCINE ( - 2023-2 5 season) 2023 SMOKING Hx and SMOKELESS TOBACCO SCREENING 01/18/2025 01/19/2024 Adult Td,Tdap Booster 08/28/2030 08/28/2020 , 02/14/2009 RSV VACCINE (1 - 1-dose 75+ series) 08/06/2038 HEPATITIS A VACCINES Aged Out No long er eligible based on patient's age to complete this topic HIB VACCINES Aged Out No longer eligi ble based on patient's age to complete this topic MENINGOCOCCAL VACCINES (ACWY) Aged Out No longer eligible based on patient's age to complete this topic MENINGOCOCCAL VACCINES (B) Aged Out N o longer eligible based on patient's age to complete this topic Medical Devices Not on file Insurance [facility] Care Teams Resource Efficiency Manager Relationship Specialty Start Date End Date Tra Gonzales MD [address] [place] [address] PCP - General Family Medicine 11/05/21 Additional Source Comments The information contained in this document represents components of the legal health record. It is not the complete legal health record.[facility]
--- OUTSIDE RECORDS SUMMARY | 2024-10-20 10:33 | XMS_ITS | Encounter Summary ---
Author Organization [facility] Address [address] [place] [address] Phone Care Team Providers Care Senior Patrol Agent Name Role Phone Vee Escoto MD Primary Care Provider [phone] Pardeep Howard MD Primary Care Provider Tra Gonzales MD Primary Care Provider Reason for Referral * Consultation (Within 1 month) - Closed Specialty Diagnoses / Procedures Referred By Conttirso t Referred To Contact [facility] Cardiology [address] [place] [address] Phone: tel: Lucas Osborne MD, MSc Phone: tel:[phone] fax: [email or web address] Referral ID Status Reason Start Date Expiration Date Visits Re quested Visits Authorized [id number] Closed 10/19/2017 10/19/2018 6 6 Encounter Details Date Type Department Care Team (Late st Contact Info) Description 09/30/2017 Transcribe Orders [facility] Cardiology [address] [place] [address] Unknown, Unknown, Social History Tobacco Use Types Packs/Day Years [...] st Contact Info) Description 01/19/2024 Procedure Pass [facility] Cardiac US [address] [place] [address] 01/24/2025 9:30 AM EST Appointment [facility] Cardiac US [address] [place] [address] Zoya Son, MEDICAL CODING AUDITOR [address] [place] [address] [email or web address] 01/24/2025 11:00 AM EST Office Visit [facility] Cardiovascular Medicine 32 [facility], 5th Floor, [address] [place] [address] Zoya Son, MEDICAL CODING AUDITOR [address] [place] [address] [email or web address] Scheduled Referrals Name Type Priority Associated Diagnoses Order Schedule Ambulatory referral to [facility] Cardiology Outpatient Referral Routine Ordered: 09/30/2017 documented as of this encounter Visit Diagnoses Not on filedocumented in this encounter Care Teams Senior Patrol Agent Relationship Specialty Start Date End Date Vee Escoto MD PCP - General Internal Medicine 02/09/17 10/18/20 Pardeep Howard MD [address] [place] [address] PCP - General Internal Medicine 10/19/20 11/04/21 Tra Gonzales MD [address] [place] [address] PCP - General Family Medicine 11/05/21 documented as of this encounter Additional Source Comments The information contained in this document represents components of the legal health record. It is not the complete legal health record.[facility]
--- OUTSIDE RECORDS SUMMARY | 2024-10-20 10:33 | XMS_ITS | Encounter Summary ---
Author Organization [facility] Address [address] [place] [address] Phone Care Team Providers Care Commercial Solar Sales Consultant Name Role Phone Pardeep Howard MD Primary Care Provider Tra Gonzales MD Primary Care Provider Encounter Details Date Type Department Care Team (Late st Contact Info) Description 10/30/2020 Procedure Pass [facility] Card[facility] US [address] [place] [address] Social History Tobacco Use Types Packs/Day Years [...] st Contact Info) Description 01/19/2024 Procedure Pass [facility] Card[facility] US [address] [place] [address] 01/24/2025 9:30 AM EST Appointment [facility] Card[facility] US [address] [place] [address] Zoya Son, BARREL FINISHER [address] [place] [address] [email or web address] 01/24/2025 11:00 AM EST Office Visit [facility] Cardiovascular Medicine [address] [facility], 5th Floor, [address] [place] [address] Zoya Son, BARREL FINISHER [address] [place] [address] [email or web address] documented as of this encounter Visit Diagnoses Not on filedocumented in this encounter Care Teams Commercial Solar Sales Consultant Relationship Specialty Start Date End Date Pardeep Howard MD [address] [place] [address] PCP - General Internal Medicine 10/19/20 11/04/21 Tra Gonzales MD [address] [place] [address] PCP - General Family Medicine 11/05/21 documented as of this encounter Additional Source Comments The information contained in this document represents components of the legal health record. It is not the complete legal health record.[facility]
--- OUTSIDE RECORDS SUMMARY | 2024-10-20 10:33 | XMS_ITS | Encounter Summary ---
Author Organization [facility] Address [address] [place] [address] Phone Care Team Providers Care Turbine Subassembler Name Role Phone Tra Gonzales MD Primary Care Provider Encounter Details Date Type Department Care Team (Late st Contact Info) Description 11/05/2021 Procedure Pass [facility] [place] [address] [place] [address] Social History Tobacco Use Types Packs/Day Years [...] st Contact Info) Description 01/19/2024 Procedure Pass [facility] [place] [address] [place] [address] 01/24/2025 9:30 AM EST Appointment [facility] [place] [address] [place] [address] Zoya Son CNP [address] [place] [address] 01/24/2025 11:00 AM EST Office Visit [facility] 32 [facility], 5th Floor, [address] [place] [address] Zoya Son, FEEDER TENDER [address] [place] [address] [email or web address] documented as of this encounter Visit Diagnoses Not on filedocumented in this encounter Care Teams Turbine Subassembler Relationship Specialty Start Date End Date Tra Gonzales MD [address] [place] [address] PCP - General Family Medicine 11/05/21 documented as of this encounter Additional Source Comments The information contained in this document represents components of the legal health record. It is not the complete legal health record.[facility]
== END 2024-10-20 10:38 | disposition home or self-care (01) ==
LOC: HO.HMCFM 09:30
PROVIDERS: PCP Family Medicine; Visit Provider Family Medicine
DX: I10 Essential (primary) hypertension (principal); R73.03 Prediabetes; E78.00 Pure hypercholesterolemia, unspecified; G47.30 Sleep apnea, unspecified; M1A.9XX1 Chronic gout, unspecified, with tophus (tophi)

== ENCOUNTER 2025-01-18 07:47 | Outpatient (REF) | payer OTHER, SELFPAY ==
--- OUTSIDE RECORDS SUMMARY | 2025-01-18 07:52 | XMS_ITS | Encounter Summary ---
Author Organization [facility] Address [address] [place] [address] Phone Care Team Providers Care Blow Mold Machine Operator Name Role Phone Pardeep Howard MD Primary Care Provider Tra Gonzales MD Primary Care Provider Encounter Details Date Type Department Care Team (Late st Contact Info) Description 10/30/2020 Procedure Pass [facility] [address] [place] [address] Social History Tobacco Use Types Packs/Day Years [...] [facility] [address] [place] [address] 01/24/2025 9:30 AM EST Appointment [facility] US [address] [place] [address] Zoya Son, BUSINESS TEACHER 55 [facility] 5 [address] [place] [address] [email or web address] 01/24/2025 11:00 AM EST Office Visit [facility] 32 [facility], 5th Floor, [address] [place] [address] Zoya Son, BUSINESS TEACHER 55 [facility] 5 [address] [place] [address] [email or web address] documented as of this encounter Visit Diagnoses Not on filedocumented in this encounter Care Teams Blow Mold Machine Operator Relationship Specialty Start Date End Date Pardeep Howard MD [address] [place] [address] PCP - General Internal Medicine 10/19/20 11/04/21 Tra Gonzales MD [address] [place] [address] PCP - General Family Medicine 11/05/21 documented as of this encounter Additional Source Comments The information contained in this document represents components of the legal health record. It is not the complete legal health record.[facility]
--- OUTSIDE RECORDS SUMMARY | 2025-01-18 07:52 | XMS_ITS | Encounter Summary ---
Author Organization [facility] Address [address] [place] [address] [address] Phone Care Team Providers Care Tools Programmer Name Role Phone Vee Escoto MD Primary Care Provider [phone] Pardeep Howard MD Primary Care Provider Tra Gonzales MD Primary Care Provider Reason for Referral * Consultation (Within 1 month) - Closed Specialty Diagnoses / Procedures Referred By Contac t Referred To Contact [facility] Cardiology [address] [place] [address] Phone: tel: Lucas Osborne MD, MSc Phone: tel: fax: [email or web address]:[email or web address] Referral ID Status Reason Start Date Expiration Date Visits Re quested Visits Authorized [id number] Closed 10/19/2017 10/19/2018 6 6 Electronically signed by [facility] Admitting, Provider at 09/30/2017 10:44 AM EDT Encounter Details Date Type Department Care Team (Late st Contact Info) Description 09/30/2017 Transcribe Orders [facility] Cardiology [address] [place] [address] Unknown, Unknown, MD Social History Tobacco Use Types Packs/Day Years [...] st Contact Info) Description 01/19/2024 Procedure Pass [facility] Cardiac [address] [place] [address] 01/24/2025 9:30 AM EST Appointment [facility] Cardiac US [address] [place] [address] Zoya Son, RISK MANAGEMENT INTERNSHIP 55 [facility] 5 [address] [place] [address] [email or web address] 01/24/2025 11:00 AM EST Office Visit [facility] Cardiovascular Medicine 32 [facility], 5th Floor, [address] [place] [address] Zoya Son, RISK MANAGEMENT INTERNSHIP 55 [facility] 5 [address] [place] [address] [email or web address] Scheduled Referrals Name Type Priority Associated Diagnoses Order Schedule Ambulatory referral to [facility] Cardiology Outpatient Referral Routine Ordered: 09/30/2017 documented as of this encounter Visit Diagnoses Not on filedocumented in this encounter Care Teams Tools Programmer Relationship Specialty Start Date End Date Vee Escoto MD PCP - General Internal Medicine 02/09/17 10/18/20 Pardeep Howard MD [address] [place] [address] PCP - General Internal Medicine 10/19/20 11/04/21 Tra Gonzales MD [address] [place] [address] PCP - General Family Medicine 11/05/21 documented as of this encounter Additional Source Comments The information contained in this document represents components of the legal health record. It is not the complete legal health record.[facility]
--- OUTSIDE RECORDS SUMMARY | 2025-01-18 07:52 | XMS_ITS | Clinical Summary ---
Author Organization [facility] Address [address] [facility] [address] [place] [address] Phone Care Team Providers Care Sap Bw Consultant Name Role Phone Tra Gonzales MD Primary [...] st Contact Info) Description 01/19/2024 Procedure Pass [facility] Cardiac US [address] [place] [address] 01/24/2025 9:30 AM EST Appointment [facility] Cardiac US [address] [place] [address] Zoya Son CNP 55 [facility] [address] [place] [address] 01/24/2025 11:00 AM EST Office Visit [facility] Cardiovascular Medicine 32 [facility], 5th Floor, [address] [place] [address] Zoya Son, SUPERVISOR ORNAMENTAL IRONWORKING 55 [facility] [address] [place] [address] [email or web address] Health Maintenance Due Date Last Done Comments [...] 08/06/2008 ZOSTER VACCINES (1 of 2) 08/06/2013 INFLUENZA VACCINE (#1) 2024 COVID-19 VACCINE (1 - 2024-2 6 season) 2024 SMOKING Hx and SMOKELESS TOBACCO SCREENING 01/18/2025 [...] topic Medical Devices Not on file Insurance [employer] [facility] TOTAL CHOICE INDEMNITY [employer] TOTAL CHOICE INDEMNITY [employer] TOTAL CHOICE INDEMNITY [employer] TOTAL CHOICE INDEMNITY [employer] TOTAL CHOICE INDEMNITY [facility] TOTAL CHOICE INDEMNITY Care Teams Sap Bw Consultant Relationship Specialty Start Date End Date Tra Gonzales MD PCP - General Family Medicine 11/05/21 Additional Source Comments The information contained in this document represents components of the legal health record. It is not the complete legal health record.[facility]
--- OUTSIDE RECORDS SUMMARY | 2025-01-18 07:52 | XMS_ITS | Clinical Summary ---
Author Organization [facility] Address [address] [place] [address] Care Team Providers Care Cone Classifier Tender Name Role Phone Vee Chase MD Primary Care Provider [phone] Social History Tobacco Use Types Packs/Day Years [...] patient's age to complete this topic Insurance [facility] Care Teams Cone Classifier Tender Relationship Specialty Start Date End Date O'Bautista, Vee M, MD [address] [place] [address] PCP - General Internal Medicine 01/22/21
--- OUTSIDE RECORDS SUMMARY | 2025-01-18 07:52 | XMS_ITS | Encounter Summary ---
Author Organization [facility] Address [address] [place] [address] [place] [address] Phone Care Team Providers Care Mat Tester Name Role Phone Tra Gonzales MD Primary Care Provider Encounter Details Date Type Department Care Team (Late Contact Info) Description 11/11/2022 Procedure Pass [facility] Cardiac US [address] [place] [address] Social History Tobacco Use Types Packs/Day Years [...] Encounters Date Type Department Care Team (Late Contact Info) Description 01/19/2024 Procedure Pass [facility] Cardiac US [address] [place] [address] 01/24/2025 9:30 AM EST Appointment [facility] Cardiac US [address] [place] [address] Zoya Son, THEATER TECHNICIAN 55 [facility] 5 [address] [place] [address] [email or web address] 01/24/2025 11:00 AM EST Office Visit [facility] Cardiovascular Medicine 32 [facility], 5th Floor, [address] [place] [address] Zoya Son, THEATER TECHNICIAN 55 [facility] [address] [place] [address] [email or web address] documented as of this encounter Visit Diagnoses Not on filedocumented in this encounter Care Teams Mat Tester Relationship Specialty Start Date End Date Tra Gonzales MD PCP - General Family Medicine 11/05/21 documented as of this encounter Additional Source Comments The information contained in this document represents components of the legal health record. It is not the complete legal health record.[facility]
--- OUTSIDE RECORDS SUMMARY | 2025-01-18 07:52 | XMS_ITS | Encounter Summary ---
Author Organization [facility] Address [address] [place] [address] Phone Care Team Providers Care Vault Cashier Name Role Phone Vee Escoto MD Primary Care Provider [phone] Pardeep Howard MD Primary Care Provider Tra Gonzales MD Primary Care Provider Encounter Details Date Type Department Care Team (Late st Contact Info) Description 09/30/2020 Procedure Pass [facility] Cardiac US [address] [place] [address] Social History Tobacco Use Types Packs/Day Years [...] st Contact Info) Description 01/19/2024 Procedure Pass [facility] Cardiac US [address] [place] [address] 01/24/2025 9:30 AM EST Appointment [facility] Cardiac US [address] [place] [address] Zoya Son, DEHYDROGENATION CONVERTER HELPER 55 [facility] 5 [address] [place] [address] [email or web address] 01/24/2025 11:00 AM EST Office Visit [facility] Cardiovascular Medicine [address] [facility], 5th Floor, [address] [place] [address] Zoya Son, DEHYDROGENATION CONVERTER HELPER [address] [facility] 5 [address] [place] [address] [email or web address] documented as of this encounter Visit Diagnoses Not on filedocumented in this encounter Care Teams Vault Cashier Relationship Specialty Start Date End Date Vee Escoto MD PCP - General Internal Medicine 02/09/17 10/18/20 Pardeep Howard MD [address] [place] [address] PCP - General Internal Medicine 10/19/20 11/04/21 Tra Gonzales MD [address] [place] [address] PCP - General Family Medicine 11/05/21 documented as of this encounter Additional Source Comments The information contained in this document represents components of the legal health record. It is not the complete legal health record.[facility]
--- OUTSIDE RECORDS SUMMARY | 2025-01-18 07:52 | XMS_ITS | Encounter Summary ---
Author Organization [facility] Address [address] [place] [address] Phone Care Team Providers Care Bilingual Speech Language Pathologist Name Role Phone Tra Gonzales MD Primary Care Provider Encounter Details Date Type Department Care Team (Late st Contact Info) Description 11/05/2021 Procedure Pass [facility] Cardiac [address] [place] [address] Social History Tobacco Use Types Packs/Day Years [...] Contact Info) Description 01/19/2024 Procedure Pass [facility] Cardiac [address] [place] [address] 01/24/2025 9:30 AM EST Appointment [facility] Cardiac [address] [place] [address] Zoya Son, PRETTY [address] [place] [address] 01/24/2025 11:00 AM EST Office Visit [facility] Cardiovascular Medicine [address] [facility], 5th Floor, [address] [place] [address] Zoya Son, CHANNEL REBUILDER [address] [address] [address] [place] [address] [email or web address] documented as of this encounter Visit Diagnoses Not on filedocumented in this encounter Care Teams Bilingual Speech Language Pathologist Relationship Specialty Start Date End Date Tra Gonzales MD PCP - General Family Medicine 11/05/21 documented as of this encounter Additional Source Comments The information contained in this document represents components of the legal health record. It is not the complete legal health record.[facility]
[2025-01-18 11:25] LABS: MANUAL DIFF FLAG NO
[2025-01-18 11:30] LABS: Hematocrit 39.0 % (42.0-52.0); Hemoglobin 11.7 g/dl (14.0-18.0); Imm Gran Abs Auto 0.01 X10*3/uL (0.00-0.03); Imm Gran Pct Auto 0.2 % (0.0-0.4); Lymphocytes Absolute Auto 1.8 X10*3/uL (1.2-4.9); Mean Corpuscular HGB Conc 30.0 g/dl (31.0-36.0); Mean Corpuscular Hemoglobin 19.6 pg (27.0-33.0); Mean Corpuscular Volume 65.2 fL (80.0-98.0); NRBC Abs Auto 0.000 X10*3/uL (0.0-0.012); NRBC Pct Auto 0.0 /100WBC (0.0-0.2); Platelet Count 161 X10*3/uL (160-400); Red Blood Count 5.98 X10*6/uL (4.60-5.80); White Blood Count 4.1 X10*3/uL (4.8-10.8)
[2025-01-18 13:07] LABS: Alanine Aminotransferase 36 U/L (0-40); Albumin Level 4.5 g/dL (3.5-5.0); Alkaline Phosphatase 49 U/L (39-117); Anion Gap 12 (12-20); Aspartate Amino Transferase 26 U/L (5-37); Blood Urea Nitrogen 17 mg/dL (9-16); Calcium 9.9 mg/dL (8.4-10.2); Carbon Dioxide 24 mmol/L (22-29); Chloride 109 mmol/L (96-108); Estimated Glomerular Filt Rate > 60; Potassium 4.0 mmol/L (3.3-5.1); Sodium 141 mmol/L (135-145); Total Protein 6.6 g/dL (6.5-8.0); Uric Acid 5.3 mg/dL (3.4-7.0)
== END 2025-01-18 07:48 | disposition home or self-care (01) ==
LOC: HO.WFDLDS 07:47
PROVIDERS: Referring Provider Student in an Organized Health Care Education/Training Program; Visit Provider Family Medicine
DX: Z00.00 Encounter for general adult medical examination without abnormal findings (principal); M10.9 Gout, unspecified; E78.5 Hyperlipidemia, unspecified; E78.00 Pure hypercholesterolemia, unspecified; D64.9 Anemia, unspecified; R73.01 Impaired fasting glucose; R73.03 Prediabetes
CPT/HCPCS: 36415; 80053; 83036; 83721; 84550; 85025; 85652; 86140

== ENCOUNTER 2025-01-27 08:36 | Outpatient (AMB) | payer OTHER, SELFPAY ==
--- NOTE | 2025-01-27 08:38 | A.OFFPC_ITS ---
Vital Signs 01/27/25 08:46 01/27/25 08:52 Height 5 ft 5 in Weight 222 lb 4 oz BMI 37.0 BP 102/68 102/68 Blood Pressure Location Rt brachial Rt brachial Position Sitting Sitting Respiration 16 Pulse 82 Pulse Source Pulse Oximeter Temp 97.3 F Temp Source Temporal Artery Scan Pulse Oximetry (%) 98 Oxygen Delivery Method Room Air Intake Visit Reasons: F/U HTN, Pre-Dm, HLP and Mild Anemia Intake Note: Ciaran presents in the office today for a follow up to hypertension, pre diabetes and other chronic conditions. Banana Carrier Required: No Allergies Seasonal Allergies Allergy (Mild, Verified 01/27/25 08:42) congestion Medication List - Last Reconciled 01/27/25 by Tra Gonzales MD allopurinol 450 mg (1.5 x 300 mg) PO DAILY 90 days cetirizine (Zyrtec) 10 mg PO DAILY PRN 90 days colchicine (Mitigare) 0.6 mg PO BID 90 days ferrous sulfate 325 mg daily losartan 50 mg PO DAILY 90 days multivitamin 1 tab PO DAILY 90 days prednisone orally; At the onset of a gout flare-up take 3 tabs daily for 3 days then 2 tabs daily for 3 days then 1 tab daily for 3 days then stop Tobacco use date assessed: 01/27/25 Dental Screening Dental Screen Date: 01/27/25 Did you have a dental visit in the last 12 months?: Yes Did you have a dental problem in the last 6 months where you did not have access to dental care?: No Was dental information given to patient?: Patient has dentist HPI F/U HTN, Pre-Dm, HLP and Mild Anemia HPI Details 59 y/o male presents to f/u HTN, prediab etes. BP today 102/68, 82p. He is on losartan 50mg daily. Labs drawn 01/18/25. Reviewed labs with pt. Ongoing mild anemia. He continues taking iron. A1c 5.7%. LDL 114. HPI Comments History of Present Illness Details Documentation assistance for Tra Gonzales MD, was provided by Rafiq Hale,? Utility Inspector on 01/27/2025 at 9:09 AM BOZENA. I, Dr. Gonzales, have read, observed, and verified documentation. ? 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 Current occupational exposures/hazards: No Cognitive needs: No Hearing needs: No Vision needs: No Questionnaire Thrive Questionnaire Date Thrive assessed: 08/01/24 I am a: Patient What is your living situation today?: I have a steady place to live Within the past 12 months, did the food you bought not last and you didn't have the money to get more?: Never true Within the past 12 months, did you worry whether your food would run out before you got money to buy more?: Never true Do you have trouble paying for medicines?: No Do you have trouble getting transportation to medical appointments?: No Do you have trouble paying your heating and electricity bill?: No Do you have trouble taking care of your child, family member or friend?: No Do you have trouble with day-to-day activities such as bathing, preparing meals, shopping, managing finances, etc.?: No Are you currently unemployed and looking for a job?: No Are you interested in more education?: No Please select the resources that you would like help with: None Currently or been in a relationship where the following occur: No concerns reported THRIVE Score: 0 SHANNON-7 AMB Questionnaire SHANNON-7 Date SHANNON - 7 assessed: 08/01/24 Source: Developed by Drs. Bharath Sky, Ela Mann, Marco Mann and colleagues, with an educational zaid from [employer]. Review of Systems Const Denies chills, Denies fatigue, Denies fever(s), Denies headache(s) and Denies weakness ENT Denies dizziness and Denies headache(s) Card Denies dyspnea Resp Denies cough, Denies dyspnea, Denies wheezing and Denies other (shortness of breath) Musc Denies numbness and Denies tingling Neuro Denies dizziness, Denies headache(s), Denies numbness, Denies tingling and D enies weakness Psych Denies anxiety and Denies depression Endo Denies fatigue Aller/Immun Denies wheezing Physical exam (Primary Care) Vital Signs: Last Vital Signs Temp 97.3 F 01/27/25 08:46 Pulse 82 01/27/25 08:46 Resp 16 01/27/25 08:46 BP 88/60 L 01/27/25 08:52 Pulse Ox 98 01/27/25 08:46 Oxygen Delivery Method Room Air 01/27/25 08:46 BMI result Body Mass Index 37.0 Tobacco/Smoking Status: Tobacco use Status Tobacco use date assessed 01/27/25 01/27/25 08:52 Patient Tobacco Use Status Former Tobacco user 01/27/25 08:52 Tobacco use type Cigar 01/27/25 08:46 e-Cigarette/Vaping Use Never Used 01/27/25 08:46 Thrive Assessment: Date of Thrive Assessment Date Thrive assessed 08/01/24 01/27/25 08:40 Currently or been in a relationship where the following occur: No concerns reported Const General: well developed; No acute distress Nutritional Appearance: well nourished Orientation/consciousness: patient oriented x3 HENMT Head: Yes normocephalic and Yes atraumatic Eyes General: appearance normal, both eyes and all related structures Pupils: Equal, round and reactive pupils present EOM: EOMs intact bilaterally Resp Effort & Inspection: normal respiratory effort Auscultation: clear to auscultation bilaterally Cardio Rate: regular rate Rhythm: regular rhythm Heart sounds: S1 normal heart sound present, S2 normal heart sound present, no gallops, no murmurs and no rubs Neuro General: patient oriented x3 and gait normal Cranial nerves: Yes Equal, round and reactive pupils present Psych Affect: normal affect Coding Level of Care Code Est Pt Level 4 (82535) Diagnoses Hypertension I10 Elevated LDL cholesterol level E78.00 Pre-diabetes R73.03 Mild anemia D64.9 Assessment & Plan Assessment & Plan (1) Hypertension: Code(s): I10 - Essential (primary) hypertension Category: Medical Plan: Blood pressure is controlled. Goal is less than 140/90 Continue current medication Hydrate well Check blood pressures at home (2) Elevated LDL cholesterol level: Code(s): E78.00 - Pure hypercholesterolemia, unspecified Category: Medical Plan: LDL cholesterol is again mildly elevated above goal of less than 100 Continue working at a diet low in saturated fats and cholesterol Will recheck at next visit. If still above goal, we discussed today that we would consider medication. (3) Pre-diabetes: Code(s): R73.03 - Prediabetes Category: Medical Plan: A1c 5.7%. Pre diabetes range Continue working on a diet low in saturated fats and cholesterol (4) Mild anemia: Code(s): D64.9 - Anemia, unspecified Category: Medical Plan: Improving He is taking iron and will continue this Will recheck with next blood draw Orders: Orders Complete Blood Count Auto Diff Today D64.9 - Anemia, unspecified, Z00.00 - E ncounter for general adult medical examination without abnormal findings IRON PROFILE Today D64.9 - Anemia, unspecified Comprehensive [place]. Panel Fast Today E78.00 - Pure hypercholesterolemia, unspecified, Z00.00 - Encounter for general adult medical examination without abnormal findings Lipid Panel Today E78.00 - Pure hypercholesterolemia, unspecified, Z00.00 - Encounter for general adult medical examination without abnormal findings
[2025-01-27 08:46] VITALS: BP 102/68; PULSE 82; RESP 16; TEMP 36.3; O2SAT 98; BMI 37.0
[2025-01-27 08:52] VITALS: BP 102/68
== END 2025-01-27 09:13 | disposition home or self-care (01) ==
LOC: HO.HMCFM 08:37
PROVIDERS: PCP Family Medicine; Visit Provider Family Medicine
DX: I10 Essential (primary) hypertension (principal); E78.00 Pure hypercholesterolemia, unspecified; R73.03 Prediabetes; D64.9 Anemia, unspecified

== ENCOUNTER 2025-02-10 07:11 | Outpatient (AMB) | payer OTHER, SELFPAY ==
--- OUTSIDE RECORDS SUMMARY | 2025-02-10 07:14 | XMS_ITS | Data Portability ---
Author Organization [place] [facility], All[facility] Address [address] [address] Assessment Encounter Date Assessment Date Assessment LastModified [...] any benefit from trial of oral appliance [id number]. He has lost weight with dietary effort to manage his gout. Recommend sleep study. We may review results approximately 1 month after study. I have discussed the value of home sleep study, in-lab sleep study and potential CPAP use [email or web address] Not available 07/26/2024 16:03:00 11/04/2024 11/04/2024 The patient has mild obstructive sleep apnea with an AHI of 12, as demonstrated by a sleep study conducted in August. CPAP therapy has been initiated, but the patient reports discomfort and lack of improvement in symptoms. Adjustments to the CPAP mask or strap settings may be necessary to improve comfort and efficacy. Weight loss was discussed as a potential strategy to reduce the severity of sleep apnea, with evidence suggesting that a 10% reduction in weight could significantly impact snoring and apnea severity. The patient was advised to consult with his primary care physician regarding diet, exercise, and potential pharmacological options for weight management. The use of oral appliances was reviewed, but the patient reported previous lack of success with this approach. Positional therapy, including the use of specialized pillows, was suggested as another option to reduce apnea episodes while sleeping on his back. Surgical interventions were discussed but deemed not appropriate for the patient's current condition, as previous nasal polyp removal did not resolve symptoms. Continued collaboration with the Sleep Center was recommended to explore alternative CPAP masks or configurations to optimize therapy. [email or web address] Not available 11/04/2024 16:13:39 Plan of Treatment Reminders Order Date Submit Date Provider Last Modified By Organization Details Last Modified Time Details Appointments None recorded. Lab None recorded. Referral None recorded. Procedures polysomno graphy, diagnosti c (PROC) 2024 025 [facility], [address] [facility], [place], [address], 09:46:44 Surgeries None recorded. Imaging None recorded. Medication Orders None recorded. Patient TargetsNo targets recorded. Patient Instructions Encounter Date Encounter Id Patient Instructions Last Modified By Organization Details Last Modified Time 11/04/2024 [id number] Consult with you r primary care physician regarding weight loss strategies, including diet, exercise, and potential pharmacological options. Work with the Sleep Center to explore alternative CPAP masks or strap configurations to improve comfort and efficacy. Consider positional therapy, such as specialized pillows, to reduce apnea episodes while sleeping on your back. [email or web address] Not available 11/04/2024 16:13:41 Please note: Par ts of this encounter note have been generated by AI based on audio conversation. Patient consent was required prior to utilizing this technology. Content review was required prior to finalizing the note. [email or web address] Not available 11/04/2024 16:13:39 Reason for Referral None Reported. Problems Name Problem SNOMED Code Status Onset Date Resolution Date Notes Provider Name and Address Organization Details Recorded Time Polyp of nasal cavity 087516122 Active 2019 Polyp of nasal cavity; Note: Date Diagnosed: 01/11/2020 3:42 PM (J33.0) Not Available [facility] 4 03:23:13 Sensorine ural hearing loss of bilateral ears 245928747 Active 2019 Sensorineu ral hearing loss, bilateral; Note: Date Diagnosed: 01/11/2020 3:05 PM (H90.3) Not Available [facility] 4 03:23:13 Follow-up visit Active 2020 Medical surveillan ce following completed treatment; Note: Date Diagnosed: 06/08/2020 3:59 PM (Z09) Not Available [facility] 4 03:23:13 Snoring 40604704 Active 2024 DEANDRA AGUILERA MD [address] [facility],[address] [address], [place], [address] , [facility] - [facility] 15:56:43 Obstructi ve sleep apnea syndrome 15239233 Active 2024 DEANDRA AGUILERA MD [address] [facility],[address] [address], [place], [address] , [facility] 21:46:57 Problem Notes None recorded. Procedures Surgical History Date Name Laterality Status Provider Name and Address Organization Details Recorded Time 07/26/2024 NasalEndos copy_DP completed DEANDRA AGUILERA MD [address] [facility],[address] [address], [place], [address], [facility] 07/26/2024 15:56:31 Imaging Results None recorded. [...] mg tablet 07/26 completed Medicati on ID: [id number] B rand Name: losartan Send Method: E-Prescr ibed Sub s Allowed: subs OK Medic ationGen ericName : losartan Not Available Not Available Not Available indometha naomi 50 mg capsule 07/26 completed Medicati on ID: [id number] B rand Name: indometh acin Sen d Method: E-Prescr ibed Sub s Allowed: subs OK Medic ationGen ericName : indometh acin Not Available Not Available Not Available budesonid e 0.5 mg/2 mL suspensio n for nebulizat ion 2019 active Medicati on ID: [id number] D uration Value: 30 Brand Name: abhijeet buckley Send Method: E-Prescr ibed Sub s Allowed: subs OK Speci al Instruct ion: use one vial in Neilmed rinse twice daily. 1/2 bottle per nostril. Medicat ionGener icName: budkimberleeoni de Not Available Not Available Not Available allopurin ol 300 mg tablet TAKE 1 AND 1/2 TABLETS DAILY active Not Available Not Available No [...] Updated DateTime 07/26/2024 165.1 cm 34.9 kg/m2 71358.4 g ISRRAEL COMI [place] - [facility] 07/26/2024 15:44:04 Date Recorded Body height Provider Name an d Address Organization Details Last Updated DateTime 11/04/2024 165.1 cm [facility] [place] [facility] 11/04/2024 15:57:25 Social History None recorded. Functional Status None recorded. Mental Status None recorded. Family History Nothing Reported. Medical History No medical history recorded. Past Encounters Encounter ID Performer Location Encounter Start Date Encounter Closed Date Diagnosis/Indication Diagnosis SNOMED-CT Code Diagnosis ICD10 Code Diagnosis IMO Codes Diagnosis Note [id number] DEANDRA AGUILERA MD [facility] [address] [address] 07/26/2024 15:33:36 07/26/2024 16:03:51 Snoring 54008866 R06.83 38820 Polyp of nasal cavity 73 0535133 J33.0 [id number] DEANDRA AGUILERA MD [facility] [address] [address] 11/04/2024 15:47:00 11/04/2024 16:13:55 Obstructive sleep apnea syndrome 24907043 G47.33 49936 Body mass index 30+ - obesity 568998188 Z68.35 674675 Health Concerns Section Related Observation LastModified by Organization Detai ls LastModified Time None Recorded Concern Status LastModified by Organization Details LastModified Time None Recorded Advance Directives Directive None Recorded Payers Insurance Date Sequence Insurance Name Policy Number Policy Azul Covered Member ID Azul Member ID Guarantor Name 11/04/2024 1 [facility] (O) [id number] Martha Giordano [id number] Ciaran Giordano 11/04/2024 1 [facility] IN[facility]MNITY [facility] (PPO) [id number] Marhta Giordano [id number] Ciaran Giordano Notes Date Note Type Note Provider Name and Address Organization Details Recorded Time 07/26/2024 text/html ROS as noted in the HPI snoringin past few months the volume has been louderlost about 20 pounds, careful with diet to avoid inflammation from foods and manage goutwaking up early in middle of nighttired in morningwife noted apnea pattern with gasping arousalfollowed in [place] to [place] with regurgitation 2019 PSG - told it was within normal (results not available) 06/04/2020 Fredis COV[place] endoscopic polypectomy involving middle turbinatespath - high grade dysplasia PV 06/02/22 Carmen, normal nasal endoscopy DEANDRA AGUILERA MD [address] [place] [address], [phone], [place] [facility] 07/26/2024 16:03:24 11/04/2024 text/html test results 08/28/2024 PSG at [facility] BMI is 35 AHI 12.8 Central and mixed less than 25% CPAP trial versus oral appliance 06/04/2020 [facility], Fredis endoscopic polypectomy involving middle turbinates path - high grade dysplasia 07/26/24 Fredis, nasal endoscopy no regrowth on turbinates Ciaran Giordano is a 59-year-old male who presents for follow-up regarding obstructive sleep apnea. A sleep study conducted in August demonstrated mild obstructive sleep apnea with an apnea-hypopnea index (AHI) of 12. The patient has been using CPAP therapy for approximately one month but reports no significant improvement in symptoms, including daytime energy levels, despite occasional good nights of sleep. He experiences discomfort with the CPAP mask, including leakage and gurgling, which disrupts sleep. The patient has previously tried an oral appliance for sleep apnea but found it ineffective as it did not alleviate snoring. He sleeps primarily on his back and has noted higher apnea episodes in this position. He has a history of nasal polyps, which were surgically removed, but this did not resolve his sleep apnea symptoms. Weight loss was discussed as a potential avenue for improvement, and the patient expressed interest in exploring options with his primary care physician. DEANDRA AGUILERA MD [address] [place] [address], [phone], [facility] - [facility] 11/04/2024 16:14:09
--- OUTSIDE RECORDS SUMMARY | 2025-02-10 07:14 | XMS_ITS | Clinical Summary ---
Author Organization [facility] Address [address] [place] [address] Care Team Providers Care Incident Response Coordinator Name Role Phone Vee Chase MD Primary [...] age to complete this topic Insurance [facility] Care Teams Incident Response Coordinator Relationship Specialty Start Date End Date O'Bautista, Vee M, MD [address] [place] [address] PCP - General Internal Medicine 01/22/21
--- OUTSIDE RECORDS SUMMARY | 2025-02-10 07:14 | XMS_ITS | Encounter Summary ---
Author Organization [facility] Address [address] [place] [address] [address] [place] [address] Phone Care Team Providers Care Gang Plank Workman Name Role Phone Tra Gonzales MD Primary Care Provider Encounter Details Date Type Department Care Team (Late Contact Info) Description 11/11/2022 Procedure Pass [facility] Cardiac Ultrasound [address] [place] [address] Social History Tobacco Use Types Packs/Day Years [...] Department Care Team (Late Contact Info) Description 01/24/2025 Procedure Pass [facility] Cardiac Ultrasound [address] [place] [address] 01/29/2026 8:30 AM EST Appointment [facility] Cardiac Ultrasound [address] [place] [address] Lucas Osborne MD, MSc [address] [facility] [place] [address] [email or web address] 01/29/2026 10:30 AM EST Office Visit [facility] at the [facility] [address] [facility], 5th Floor, [address] [place] [address] Zoya Son, BOTTOM BLEACHER [address] [facility] [address] [place] [address] documented as of this encounter Visit Diagnoses Not on filedocumented in this encounter Care Teams Gang Plank Workman Relationship Specialty Start Date End Date Tra Gonzales MD PCP - General Family Medicine 11/05/21 documented as of this encounter Additional Source Comments The information contained in this document represents components of the legal health record. It is not the complete legal health record.[facility]
--- OUTSIDE RECORDS SUMMARY | 2025-02-10 07:14 | XMS_ITS | Encounter Summary ---
Author Organization [facility] Address [address] [place] [address] Phone Care Team Providers Care Evp Global Product Leadership Name Role Phone Pardeep Howard MD Primary Care Provider Tra Gonzales MD Primary Care Provider Encounter Details Date Type Department Care Team (Late st Contact Info) Description 10/30/2020 Procedure Pass [facility] Cardiac Ultrasound [address] [place] [address] Social History Tobacco Use Types Packs/Day Years [...] Care Team (Late st Contact Info) Description 01/24/2025 Procedure Pass [facility] Cardiac Ultrasound [address] [place] [address] 01/29/2026 8:30 AM EST Appointment [facility] Cardiac Ultrasound [address] [place] [address] Lucas Osborne MD, MSc [address] [facility] [place] [address] [email or web address] 01/29/2026 10:30 AM EST Office Visit [facility]iology Clinic at the [facility] [address] [facility], 5th Floor, [address] [place] [address] Zoya Son, ACID TANK LINER [address] [facility] [address] [place] [address] documented as of this encounter Visit Diagnoses Not on filedocumented in this encounter Care Teams [employer] Global Product Leadership Relationship Specialty Start Date End Date Pardeep Howard MD [address] [place] [address] PCP - General Internal Medicine 10/19/20 11/04/21 Tra Gonzales MD [address] [place] [address] PCP - General Family Medicine 11/05/21 documented as of this encounter Additional Source Comments The information contained in this document represents components of the legal health record. It is not the complete legal health record.[facility]
--- OUTSIDE RECORDS SUMMARY | 2025-02-10 07:14 | XMS_ITS | Clinical Summary ---
Author Organization [facility] Address [address] [place] [address] Phone Care Team Providers Care Value Analysis Coordinator Name Role Phone Tra Gonzales MD Primary Care Provider Allergies No known active allergies Medications MULTIVITAMIN ORAL Take by mouth daily. Active cetirizine (ZYRTEC) 10 MG tablet Take 10 mg by mouth daily as needed for allergies. Active losartan (COZAAR) 50 MG tablet Take 50 mg by mouth daily. Active MITIGARE 0.6 mg capsule Take 1 capsule by mouth 2 (two) times a day. 4 Active FERROUS SULFATE ORAL Take by mouth. Active allopurinol (ZYLOPRIM) 300 MG tablet Take 450 mg by mouth daily. Active allopurinol (ZYLOPRIM) 100 MG tablet Take 2 tablets by mouth every morning. 4 01/26/20 25 Discontinu ed(Dose adjustment ) Active Problems Problem Noted Date Diagnosed Date Mitral valve prolapse 06/16/2018 Non-rheumatic mitral regurgitation 06/16/2018 Borderline hypertension 06/16/2018 Encounters Date Type Department Care Team Description 01/24/2025 11:00 AM EST Office Visit [facility] Cardiology Clinic at the [address], 5[address] Floor, [address] [place] [id number] Zoya Son CNP Mitral valve prolapse (Primary Dx); Non-rheumatic mitral regurgitation; Borderline hypertension 01/24/2025 8:44 AM EST - 01/24/2025 11:59 PM EST Hospital Encounter [facility] Cardiac Ultrasound [address] [place] [address] Zoya Son CNP Discharge Disposition: Home or Self Care 01/19/2024 Procedure Pass [facility] Cardiac Ultrasound [address] [place] [address] from Last 3 Months Family History Medical History Relation Comments Hearing [...] Sign Reading Time Taken Comments Blood Pressure 119/73 01/24/2025 11:31 AM EST Pulse 67 01/24/2025 11:31 AM EST Temperature - - Respiratory Rate 16 06/15/2018 3:16 PM EDT Oxygen Saturation - - Inhaled Oxygen Concentration - - Weight 100.5 kg (221 lb 9.6 oz) 025 11:31 AM EST Height 165.1 cm (5' 5 ) 01/24/2025 8:44 AM EST Body Mass Index 36.88 01/24/2025 8:44 AM EST Plan of Treatment Upcoming Encounters Date Type Department Care Team (Late st Contact Info) Description 01/24/2025 Procedure Pass [facility] Cardiac Ultrasound [address] [place] [address] 01/29/2026 8:30 AM EST Appointment [facility] Cardiac Ultrasound [address] [place] [address] Lucas Osborne MD, MSc 55 [facility] [place] [address] [email or web address] 01/29/2026 10:30 AM EST Office Visit [facility] at the [facility] [address], 5th [address], [address] [place] [address] Zoya Son, BENDING PRESS OPERATOR 55 [facility] [address] [place] [address] Health Maintenance Due Date Last Done Comments CREATININE LEVEL 1963 LIPID PANEL 1963 POTASSIUM LEVEL 1963 DEPRESSION SCREENING 1975 SMOKING Hx and SMOKELESS TOBACCO SCREENING 08/06/1976 HEPATITIS C SCREENING 08/06/1981 HIV ONE-TIME SCREENING (18-6 5 YEARS) 08/06/1981 PNEUMOCOCCAL VACCINES (50+ years) (1 of 2 - PCV) 08/06/1982 SCREENING FOR DIABETES 08/06/1998 COLOGUARD 08/06/2008 COLONOSCOPY 08/06/2008 COLORECTAL CANCER SCREENING 08/06/2008 FIT TEST 08/06/2008 FOBT 08/06/2008 SIGMOIDOSCOPY 08/06/2008 VIRTUAL COLONOSCOPY 08/06/2008 ZOSTER VACCINES (1 of 2) 08/06/2013 INFLUENZA VACCINE (#1) 2024 COVID-19 VACCINE (1 - 2024-2 6 season) 2024 Adult Td,Tdap Booster 08/28/2030 08/28/2020 , 02/14/2009 [...] this topic Medical Devices Not on file Procedures Procedure Name Priority Date/Time Associated Diagnosis Comments ECG 12-LEAD Routine 01/24/2025 11:15 AM EST Mitral valve prolapse Non-rheumatic mitral regurgitation Borderline hypertension TTE COMPREHENSIVE Routine 01/24/2025 9:3 7 AM EST Mitral valve prolapse Non-rheumatic mitral regurgitation from Last 3 Months Results * ECG 12-LEAD (01/24/2025 11:15 AM EST) Systolic Blood Pressure [facility] Diastolic Blood Pressure [facility] Ventricular Rate EKG/MIN 67 BPM [facility] Atrial Rate 67 BPM [facility] [place] Interval 156 ms [facility] QRS Duration 90 ms [facility] QT Interval 402 ms [facility] QTC Interval 424 ms [facility] P [place] 34 degrees [facility] R Wave [place] 47 degrees [facility] T Wave [place] 29 degrees [facility] 01/24/2025 11:1 5 AM EST 01/24/2025 11:42 AM EST Narrative [facility] - 01/24/2025 11:42 AM EST NORMAL SINUS RHYTHM NORMAL ECG WHEN COMPARED WITH ECG OF 19-Jan-2024 09:27, NO SIGNIFICANT CHANGE WAS FOUND us Zoya Son BENDING PRESS OPERATOR ECG ORDERABLES Final Resul t [facility] * TTE COMPREHENSIVE (01/24/2025 9:37 AM EST) Body Surface Area 1.98 m2 Inferior Vena Cava Diameter 13 <21 mm Left Ventricle Internal Diameter End Diastole 57 42 - 58 mm Interventricular Septum Thickness 9 6 - 11 mm Aortic Sinus Diameter 33 <40 mm Left Ventricle Internal Diameter End Systole 38 <40 mm Left Ventricular Posterior Wall Thickness 9 6 - 11 mm Ascending Aorta Diameter 31 <36 mm Raw LV EF% 56 % Left Atrium Dimension Anterior-Posterior 46 15 - 40 mm Left Atrial Volume Index 49 16 - 34 mL/m2 Relative Wall Thickness 0.32 0.22 - 0.42 Left Ventricle indexed to BSA 99.8 g/m2 Left Atrial Volume 97 mL Aortic Valve Sinus Index by BSA 17 mm/m2 Ascending Aorta Index 16 mm/m2 Ascending Aorta Index 16 mm Aortic Sinus Index 17 mm Ascending Aorta Diameter 16 mm Aortic Valve Sinus Index 1 17 20 - 32 mm AO ASC DIAM BSA INDEX 15.66 Right Ventricle Linear Dimension 36 mm Left Ventricular Apical Contribution 10 Ejection Fraction 66 50 - 75 % Right Ventricle Basal Diameter 36 25 - 41 mm Left Atrium Dimension Superior-Inferior 58 29 - 53 mm Right Atrium Dimension Superior-Inferior 58 mm Right Atrium Index Superior-Inferior 29 19 - 30 mm/m2 Right Atrium Dimension Medial-Lateral 45 mm Right Atrium Dimension Medial-Lateral 23 13 - 25 mm/m2 Right Atrium Dimension Medial-Lateral 23 mm/m2 Right Atrium Index Superior-Inferior 29 mm/m2 Anatomical Region Laterality Modality Heart Ultrasound Narrative 01/24/2025 8:25 PM EST Normal left and right ventricular size and systolic function. There is mitral regurgitation of at least moderate severity. Compared to prior TTE study (direct image comparison) on 01/19/2024, there are no important changes. Left Ventricle The left ventricle is normal in size. There is normal wall thickness. There is normal left ventricular systolic function. The LV ejection fraction is 66% (calculated via the single dimension method). There are no wall motion abnormalities. Right Ventricle The right ventricle is normal in size. There is normal right ventricular systolic function. Left Atrium The left atrium is severely dilated. The left atrial volume is 97 mL. The left atrial volume index by BSA is 49 mL/m2 (normal: 16-34 mL/m2). Right Atrium The right atrium is normal in size. The IVC is normal in size with normal inspiratory collapse. This is consistent with normal RA pressure. Mitral Valve The tip of the anterior leaflet of the mitral valve coapts basal to the tip of the posterior mitral leaflet. There is moderate diffuse thickening of both mitral leaflets without definite evidence of mitral valve prolapse; however, on some technically fair parasternal long axis images the thickening extends on some beats from the anterior leaflet basally, suggestive of possible focal anterior mitral valve leaflet prolapse. There is no mitral stenosis. There is mitral regurgitation of at least moderate severity, with a jet which originates medially and which is highly eccentric and directed initially anterolaterally, inferolaterally, and inferiorly and courses to the base of the left atrium. The transmitral Doppler pattern is A-wave dominant, which does not suggest the presence of severe mitral regurgitation. Tricuspid Valve There is no obvious structural abnormality. There is trace tricuspid regurgitation. RV systolic pressure could not be estimated due to an insufficient TR Doppler envelope. Aortic Valve The aortic valve is tricuspid. There is no aortic stenosis. There is no aortic regurgitation. Pulmonic Valve There is no pulmonic stenosis. There is trace pulmonic regurgitation. Pericardium There is no pericardial effusion. General Findings The image quality was fair (3). Comparison Findings Compared to prior TTE study (direct image comparison) on 01/19/2024, there are no important changes. us Zoya Son [facility] CV ECHO ORDERABLES Final Re sult from Last 3 Months Insurance [facility] [employer] INDEMNITY [employer] [place] [id number] [facility]DEMNITY [facility] INDEMNITY [facility] T[facility]ICE INDEMNITY [facility] [employer] INDEMNITY Care Teams Value Analysis Coordinator Relationship Specialty Start Date End Date Tra Gonzales MD PCP - General Family Medicine 11/05/21 Additional Source Comments The information contained in this document represents components of the legal health record. It is not the complete legal health record.[facility]
--- OUTSIDE RECORDS SUMMARY | 2025-02-10 07:14 | XMS_ITS | Encounter Summary ---
Author Organization [facility] Address [address] [place] [address] [address] [place] [address] Phone Care Team Providers Care Home Demonstration Agent Name Role Phone Tra Gonzales MD Primary Care Provider Encounter Details Date Type Department Care Team (Late Contact Info) Description 01/19/2024 Procedure Pass [facility] Cardiac Ultrasound [address] [place] [address] Social History Tobacco Use Types Packs/Day Years [...] (Late Contact Info) Description 01/24/2025 Procedure Pass [facility] Cardiac Ultrasound [address] [place] [address] 01/29/2026 8:30 AM EST Appointment [facility] Cardiac Ultrasound [address] [place] [address] Lucas Osborne MD, MSc 55 [id number] [place] [address] [email or web address] 01/29/2026 10:30 AM EST Office Visit [facility] Cardiology Clinic at the [facility] [address] [facility], 5th Floor, [address] [place] [address] Zoya Son, LABORER CONCRETE PLANT 55 [facility] [address] [place] [address] documented as of this encounter Visit Diagnoses Not on filedocumented in this encounter Care Teams Home Demonstration Agent Relationship Specialty Start Date End Date Tra Gonzales MD PCP - General Family Medicine 11/05/21 documented as of this encounter Additional Source Comments The information contained in this document represents components of the legal health record. It is not the complete legal health record.[facility]
--- OUTSIDE RECORDS SUMMARY | 2025-02-10 07:14 | XMS_ITS | Encounter Summary ---
Author Organization [facility] Address [address] [place] [address] [place] [phone] Phone Care Team Providers Care Molding Machine Operator Name Role Phone Vee Escoto MD Primary Care Provider Pardeep Howard MD Primary Care Provider Tra Gonzales MD Primary Care Provider Reason for Referral * Consultation (Within 1 month) - Closed Specialty Diagnoses / Procedures Referred By Contac t Referred To Contact [facility] [place] [address] [place] [address] Phone: tel: Lucas Osborne MD, MSc Phone: tel: fax: [email or web address] Referral ID Status Reason Start Date Expiration Date Visits Re quested Visits Authorized [id number] Closed 10/19/2017 10/19/2018 6 6 Electronically signed by [facility] Admitting, Provider at 09/30/2017 10:44 AM EDT Encounter Details Date Type Department Care Team (Late st Contact Info) Description 09/30/2017 Transcribe Orders [facility] [place] [address] [place] [phone] Unknown, Unknown, MD Social History Tobacco Use [...] Procedure Pass [facility] Cardiac Ultrasound [address] [place] [address] 01/29/2026 8:30 AM EST Appointment [facility] Cardiac Ultrasound [address] [place] [address] Lucas Osborne MD, MSc [address] [place] [id number] [email or web address] 01/29/2026 10:30 AM EST Office Visit [facility] Cardiology Clinic at the [facility] [address] [facility], 5th Floor, [address] [place] [address] Zoya Son, CONSTRUCTION SUPERVISOR/CARPENTER 55 [facility] [address] [place] [address] [email or web address] Scheduled Referrals Name Type Priority Associated Diagnoses Order Schedule Ambulatory referral to [facility] [place] Outpatient Referral Routine Ordered: 09/30/2017 documented as of this encounter Visit Diagnoses Not on filedocumented in this encounter Care Teams Molding Machine Operator Relationship Specialty Start Date End Date Vee Escoto MD PCP - General Internal Medicine 02/09/17 10/18/20 Pardeep Howard MD [address] [place] [id number] PCP - General Internal Medicine 10/19/20 11/04/21 Tra Gonzales MD [address] [place] [address] PCP - General Family Medicine 11/05/21 documented as of this encounter Additional Source Comments The information contained in this document represents components of the legal health record. It is not the complete legal health record.[facility]
--- OUTSIDE RECORDS SUMMARY | 2025-02-10 07:14 | XMS_ITS | Encounter Summary ---
Author Organization [facility] Address [address] [place] [phone] Phone Care Team Providers Care Civil Engineer Name Role Phone Tra Gonzales MD Primary Care Provider Encounter Details Date Type Department Care Team (Late st Contact Info) Description 11/05/2021 Procedure Pass [facility] Cardiac Ultrasound [address] [place] [address] Social History Tobacco Use Types Packs/Day Years [...] st Contact Info) Description 01/24/2025 Procedure Pass [facility] Cardiac Ultrasound [address] [place] [address] 01/29/2026 8:30 AM EST Appointment [facility] Cardiac Ultrasound [address] [place] [address] Lucas Osborne MD, MSc [address] [place], [place] [id number] [place] [id number] [email or web address] 01/29/2026 10:30 AM EST Office Visit [facility] Card[facility] Clinic at the [facility] [place] [address] [facility], 5th Floor, [address] [place] [address] Zoya Son, RACK MAKER [address] [place] [address] [address] [place] [address] [email or web address] documented as of this encounter Visit Diagnoses Not on filedocumented in this encounter Care Teams Civil Engineer Relationship Specialty Start Date End Date Tra Gonzales MD PCP - General Family Medicine 11/05/21 documented as of this encounter Additional Source Comments The information contained in this document represents components of the legal health record. It is not the complete legal health record.[facility]
--- OUTSIDE RECORDS SUMMARY | 2025-02-10 07:14 | XMS_ITS | Encounter Summary ---
Author Organization [facility] Address [address] [place] [address] Phone Care Team Providers Care Private Watchman Name Role Phone Vee Escoto MD Primary Care Provider [phone] Pardeep Howard MD Primary Care Provider Tra Gonzales MD Primary Care Provider Encounter Details Date Type Department Care Team (Late st Contact Info) Description 09/30/2020 Procedure Pass [facility] Cardiac Ultrasound [address] [place] [address] Social History Tobacco Use Types Packs/Day Years [...] st Contact Info) Description 01/24/2025 Procedure Pass [facility] Cardiac Ultrasound [address] [place] [address] 01/29/2026 8:30 AM EST Appointment [facility] Cardiac Ultrasound [address] [place] [address] Lucas Osborne MD, MSc 55 [facility] [place] [address] [email or web address] 01/29/2026 10:30 AM EST Office Visit [facility] Cardiology Clinic at the [facility] [place] [address] [facility], 5th Floor, [address] [place] [address] Zoya Son, KNIFE OPERATOR 55 [facility] [address] [place] [address] documented as of this encounter Visit Diagnoses Not on filedocumented in this encounter Care Teams Private Watchman Relationship Specialty Start Date End Date Vee Escoto MD PCP - General Internal Medicine 02/09/17 10/18/20 Pardeep Howard MD [address] [place] [address] PCP - General Internal Medicine 10/19/20 11/04/21 Tra Gonzales MD [address] [place] [address] PCP - General Family Medicine 11/05/21 documented as of this encounter Additional Source Comments The information contained in this document represents components of the legal health record. It is not the complete legal health record.[facility]
--- NOTE | 2025-02-10 07:34 | MHC.OFFVIS ---
Vital Signs 02/10/25 07:43 Height 5 ft 5 in Weight 228 lb 6.382 oz BMI 38.0 BP 130/82 Blood Pressure Location Lt brachial Position Sitting Pulse 90 Pulse Source Pulse Oximeter Pulse Oximetry (%) 98 Oxygen Delivery Method Room Air Intake Visit Reasons: follow up Intake Note: Patient presents today for Gout follow up and test results. Retail Service Lead Merchandiser Required: No Information Interpreted: non-clinical & clinical Accompanied by: Self / Same As Patient Allergies Seasonal Allergies Allergy (Mild, Verified 02/10/25 07:41) congestion Medication List - Last Reconciled 02/10/25 by Alicia Bassett MD allopurinol 450 mg (1.5 x 300 mg) PO DAILY 90 days cetirizine (Zyrtec) 10 mg PO DAILY PRN 90 days colchicine (Mitigare) 0.6 mg PO BID 90 days ferrous sulfate 325 mg daily losartan 50 mg PO DAILY 90 days multivitamin 1 tab PO DAILY 90 days prednisone orally; At the onset of a gout flare-up take 3 tabs daily for 3 days then 2 tabs daily for 3 days then 1 tab daily for 3 days then stop HPI Comments Details: Patient is a 59-year-old male hypertension, chronic microcytic anemia secondary to thalassemia 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 He states that he was diagnosed with gout [place] since 11/04. He was having gout flare-ups affecting his feet. He was started on allopurinol 100 mg daily and colchicine with resolution of gout. He states that he self-discontinued his medications as he was feeling well. Earlier this year he started having gout flare-ups affecting his left elbow, his left hand followed by the his right hand as well as his ankles. Get prednisone tapers from his PCP with improvement. He was restarted on allopurinol and it was increased to 200 mg daily 1 or 2 months ago. States that the prednisone helps but he still has pain and swelling in his left hand, left ankle today and right 2nd toe. He denies history of kidney stones. States that he has an uncle with gout Current Rheumatology Medication(s): Allopurinol 450mg daily Colchicine 0.6mg bid Prednisone prn for flares PFSH Surgical History H/O right inguinal hernia repair Family History Paternal Uncle Gout Social History Housing: House Alcohol intake: current Patient Tobacco Use Status: Former Tobacco user Tobacco use type: Cigar e-Cigarette/Vaping Use: Never Used Second Hand Smoke Exposure: No Advance Directives Date on File: 09/04/22 service: No Current occupational status: employed Current occupation: [employer]. Current occupational exposures/hazards: No Cognitive needs: No Hearing needs: No Vision needs: No Review of Systems Narrative Review of Systems Constitutional: Denies fever, chills, weight loss ENT: Denies vision changes, eye pain or eye redness, dental caries, dry mouth GI: Denies nausea, vomiting, diarrhea, abdominal pain, change in BM Pulm: Denies SOB, ESCOBAR, hemoptysis, wheezing Cards: Denies chest pain, palpitations Skin: Denies Raynaud's, rash, nail changes, photosensitivity, NUTRITION AND DIETETICS INSTRUCTOR: Denies headaches, weakness, paresthesias, recurrent falls MSK: as per HPI All other systems reviewed and are unremarkable except noted above Physical Exam Exam Exam: Vital signs reviewed Physical Examination CONSTITUITIONAL Patient alert and cooperative. Well appearing and in no apparent painful distress MSK Hands Right Hand: Able to make a fist. No swelling or tenderness to palpation of the MCPs, PIPs or DIPs. Left Hand: Able to make a fist. No swelling or tenderness to palpation of the MCPs, PIPs or DIPs. Wrists Right Wrist: Full ROM to flexion and extension. No swelling or TTP Left Wrist: Full ROM to flexion and extension. No swelling or TTP Elbows Right Elbow: Full ROM. No swelling or TTP. No TTP of the medial epicondyle. No TTP of the lateral epicondyle Left Elbow: Full ROM. No swelling or TTP. No TTP of the medial epicondyle. No TTP of the lateral epicondyle Shoulders Right shoulder: Full ROM. No swelling noted. No TTP of the AC joint. No TTP of the subacromial bursa. No TTP of the posterior shoulder Left shoulder: Full ROM. No swelling noted. No TTP of the AC joint. No TTP of the subacromial bursa. No TTP of the posterior shoulder Knees Right knee: Full ROM. No swelling noted. No TTP of the knee joint line. No TTP of pes anserine bursa Left knee: Full ROM. No swelling noted. No TTP of the knee joint line. No TTP of pes anserine bursa. Crepitations felt bilaterally Ankles Right ankle: Good ankle dorsiflexion and plantar flexion. No swelling. No TTP of the ankle joint Left ankle: Good ankle dorsiflexion and plantar flexion. No swelling. No TTP of the ankle joint Feet Right foot: Negative squeeze test Left foot: Negative squeeze test Tender points? No tenderness to palpation of the bilateral trapezius, supraspinatus, anterior costochondral junctions, bilateral suboccipital muscle insertions SKIN No rashes Vital Signs: Last Vital Signs Pulse 90 02/10/25 07:43 BP 130/82 02/10/25 07:43 Pulse Ox 98 02/10/25 07:43 Oxygen Delivery Method Room Air 02/10/25 07:43 BMI result Body Mass Index 38.0 Results Reviewed Results Reviewed: Laboratory Tests 01/18/25 07:50 WBC 4.1 L RBC 5.98 H Hgb 11.7 L Hct 39.0 L Plt Count 161 ESR 2 Sodium 141 Potassium 4.0 Chloride 109 H Carbon Dioxide 24 BUN 17 H Creatinine 0.93 Uric Acid 5.3 AST 26 ALT 36 C-Reactive Protein 0.12 Assessment & Plan Assessment & Plan (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 Then patient's self DC meds Multiple gout flare-ups in 2023. Allopurinol restarted Code(s): M1A.9XX1 - Chronic gout, unspecified, with tophus (tophi) Category: Medical Plan: #Chronic Tophaceous gout Patient is a 59-year-old male with chronic tophaceous gout currently in remission. Doing well on allopurinol with no recurrence of flares. Colchicine for prophylaxis. Uric acid goal for this patient with tophaceous gout is less than 5. Uric acid today 5.3. Will check Uric Acid again and if still >5 will increase allopurinol to 600mg Plan - UA goal < 5 - Allopurinol to 450mg daily, will increase to 600mg if uric acid is still not at goal - Continue colchicine 0.6mg bid - Prednisone taper for flares - Labs today: Uric Acid - RTC 3 months - Labs before visit: CBC, CMP, ESR, CRP, UA (2) Encounter for monitoring allopurinol therapy: Code(s): Z51.81 - Encounter for therapeutic drug level monitoring; Z79.899 - Other local intermodal truck driver (current) drug therapy Plan: #Long-term Current Use of Allopurinol Risks and benefits of allopurinol discussed with patient Benefits include decreased gout flares, remission of gout and reduction of tophi Risks include allopurinol hypersensitivity syndrome which is a severe cutaneous adverse reaction associated with allopurinol use particularly in patients who are HLA [id number] positive, increased transaminases, GI upset including diarrhea, nausea and vomiting, and other dermatologic manifestations. (3) On colchicine therapy: Code(s): Z79.899 - Other usp (current) drug therapy Plan: #Long-term use of colchicine Risks and benefits of long-term colchicine for the management of this patient's gout discussed with patient. Benefits include reduced occurrence of flares while we titrate and regulate his uric acid on allopurinol and other uric acid lowering medications. ? Risks include worsening myalgias especially if on statins and GI upset including diarrhea Plan I spent 25 minutes reviewing the record and labs, taking a history, examining the patient, discussing the treatment plan, ordering diagnostic work up and documenting in the medical record Orders: Orders Uric Acid Today M1A.9XX1 - Chronic gout, unspecified, with tophus (tophi) Coding Level of Care Code Est Pt Level 3 (88990) Add On Problem Visit Only Diagnoses Tophaceous gout M1A.9XX1 Encounter for monitoring allopurinol therapy Z51.81; Z79.899 On colchicine therapy Z79.899
[2025-02-10 07:43] VITALS: BP 130/82; PULSE 90; O2SAT 98; BMI 38.0
== END 2025-02-10 08:05 | disposition home or self-care (01) ==
LOC: HO.RHES 07:12
PROVIDERS: PCP Family Medicine; Visit Provider Student in an Organized Health Care Education/Training Program
DX: M1A.9XX1 Chronic gout, unspecified, with tophus (tophi) (principal); Z51.81 Encounter for therapeutic drug level monitoring; Z79.899 Other long term (current) drug therapy
CPT/HCPCS: 99213

== ENCOUNTER 2025-02-10 07:11 | Outpatient (REF) | payer OTHER, SELFPAY ==
[2025-02-10 16:11] LABS: Uric Acid 5.8 mg/dL (3.4-7.0)
== END 2025-02-10 07:12 | disposition home or self-care (01) ==
LOC: HO.HKASLDS 07:11
PROVIDERS: PCP Family Medicine; Visit Provider Student in an Organized Health Care Education/Training Program
DX: M1A.9XX1 Chronic gout, unspecified, with tophus (tophi) (principal); Z51.81 Encounter for therapeutic drug level monitoring; Z79.899 Other long term (current) drug therapy
CPT/HCPCS: 36415; 84550